=== PATIENT | male | born 1945 | race Caucasian/White ===

== ENCOUNTER 2017-01-18 09:40 | Inpatient (IN) | payer MEDICARE, BC ==
[~2017-01-18] VITALS: Ht 182.9 cm; Wt 77.0 kg
[2017-01-18] VITALS (9 sets, daily range): BP systolic 116–157; BP diastolic 54–76; PULSE 62–84; RESP 16; TEMP 97.5–97.7; O2SAT 96–99
[~2017-01-18 09:40] MED LIST: ALL220TA; HYDR-3533 PO; SILV1CRE80 TOP; VICOTAB4
[2017-01-18] MEDS ORDERED: ATOR20TA15 PO (10:12)
[2017-01-18] MEDS ORDERED: FINA5TAB2 PO (10:12)
[2017-01-18] MEDS ORDERED: [UNRECOGNIZED DRUG - CODE] T-DERMAL (10:12)
[2017-01-18] MEDS ORDERED: PANT40TA3 PO (10:12)
[2017-01-18] MEDS ORDERED: LISI10TA3 PO (10:12)
--- NOTE | 2017-01-18 10:40 | PD ---
HPI Chief Complaint: Pain: Acute or Chronic Time Seen by Provider: 10:05 Travel History International Travel<30 days: No Contact w/Intl Traveler<30days: No Traveled to known affect area: No History of Present Illness HPI 71yo M with PMH of right renal cell carcinoma s/p right nephrectomy 3 weeks ago at [facility] in [place] here with c/o lower back pain that was worst yesterday. Pain is sharp, worst with movement and radiating across left and right lower back. Pt also with bilateral lower extremity numbness more on bilateral lateral aspect of thighs and up to above both knees. Said he has had numbness before but never constant like the last 3-4 days. Denies any trauma, fever, IVDA, focal weakness, chest pain, sob, n/v, abdominal pain. Took oxycodone with no relieve. PFSH Past Medical History Cancer: Yes (KIDNEY) High Cholesterol: Yes Chemotherapy: No Diabetes: No (PRE-DIABETIC) Diminished Hearing: No GERD: Yes Hypertension: Yes Immunizations Current: Yes Radiation Therapy: No Tetanus Vaccination: < 5 Years Past Surgical History Abdominal Surgery: Yes (RIGHT KIDNEY REMOVED-CA) Social History Alcohol Use: Yes (OCCASIONALLY) Tobacco Use: No (FORMER) Substance Use: No Allergies-Medications (Allergen,Severity, Reaction): Coded Allergies: No Known Allergies (Verified Allergy, Mild, 01/18/17) Reported Meds & Prescriptions Reported Meds & Active Scripts Active Reported Testosterone 25 Mg/2.5 Gram (1 %) Gel.packet 1 Applic T-DERMAL DAILY Lisinopril 10 Mg Tab 10 Mg PO HS Pantoprazole (Pantoprazole Sodium) 40 Mg Tab 40 Mg PO DAILY Finasteride 5 Mg Tab 5 Mg PO DAILY Do not crush. Atorvastatin (Atorvastatin Calcium) 20 Mg Tab 20 Mg PO HS Review of Systems Except as stated in HPI: all other systems reviewed are Neg Physical Exam Narrative GENERAL: 71yo M in moderate distress. SKIN: Focused skin assessment warm/dry. HEAD: Atraumatic. Normocephalic. EYES: Pupils equal and round at 3mm bilaterally. EOMI. CARDIOVASCULAR: Regular rate and rhythm. No murmur appreciated. RESPIRATORY: No accessory muscle use. Clear to auscultation. Breath sounds equal bilaterally. GASTROINTESTINAL: Abdomen soft, non-tender, nondistended. No rebound tenderness or guarding. BACK: +TTP L5. No mass. No edema or erythema. MUSCULOSKELETAL: No obvious deformities. No clubbing. No cyanosis. No edema. NEUROLOGICAL: Awake and alert. No obvious cranial nerve deficits. Motor grossly within normal limits 06/18. Normal speech. Decreased sensation in bilateral lateral thighs. Normal sensation in bilateral upper extremities. PSYCHIATRIC: Appropriate mood and affect; insight and judgment normal. Data Data Last Documented VS Vital Signs Date Time Temp Pulse Resp B/P (MAP) Pulse Ox O2 Delivery O2 Flow Rate FiO2 01/18/17 13:47 63 16 146/68 (94) 97 Room Air 01/18/17 09:51 97.5 Orders Orders Mri L Spine W&W/O Contrast (01/18/17 ) Complete Blood Count With Diff (01/18/17 10:32) Basic Metabolic Panel (Bmp) (01/18/17 10:32) Urinalysis - C+S If Indicated (01/18/17 10:32) ^ Insert Iv (01/18/17 10:33) Morphine Inj (Morphine Inj) (01/18/17 10:45) Sodium Chlor 0.9% 1000 Ml Inj (Ns 1000 M (01/18/17 11:45) Gadobenate Dimeglimine Pf Inj (Multihanc (01/18/17 12:35) Admit Order (Ed Use Only) (01/18/17 14:29) Consult Neurosurgery (01/18/17 ) Labs Laboratory Tests Test 01/18/17 10:44 01/18/17 11:42 White Blood Count 5.7 TH/MM3 Red Blood Count 4.45 MIL/MM3 Hemoglobin 13.4 GM/DL Hematocrit 39.6 % Mean Corpuscular Volume 89.1 FL Mean Corpuscular Hemoglobin 30.0 PG Mean Corpuscular Hemoglobin Concent 33.7 % Red Cell Distribution Width 11.6 % Platelet Count 235 TH/MM3 Mean Platelet Volume 7.8 FL Neutrophils (%) (Auto) 74.7 % Lymphocytes (%) (Auto) 13.0 % Monocytes (%) (Auto) 8.0 % Eosinophils (%) (Auto) 3.6 % Basophils (%) (Auto) 0.7 % Neutrophils # (Auto) 4.3 TH/MM3 Lymphocytes # (Auto) 0.7 TH/MM3 Monocytes # (Auto) 0.5 TH/MM3 Eosinophils # (Auto) 0.2 TH/MM3 Basophils # (Auto) 0.0 TH/MM3 CBC Comment DIFF FINAL Differential Comment Blood Urea Nitrogen 29 MG/DL Creatinine 1.40 MG/DL Random Glucose 142 MG/DL Calcium Level 9.7 MG/DL Sodium Level 135 MEQ/L Potassium Level 4.3 MEQ/L Chloride Level 101 MEQ/L Carbon Dioxide Level 26.0 MEQ/L Anion Gap 8 MEQ/L Estimat Glomerular Filtration Rate 50 ML/MIN Urine Collection Type CLEAN CATCH Urine Color YELLOW Urine Turbidity CLEAR Urine pH 6.0 Urine Specific [place] 1.016 Urine Protein NEG mg/dL Urine Glucose (UA) NEG mg/dL Urine Ketones NEG mg/dL Urine Occult Blood NEG Urine Nitrite NEG Urine Bilirubin NEG Urine Leukocyte Esterase NEG Microscopic Urinalysis Comment CULT NOT INDICATED MDM Medical Decision Making Medical Screen Exam Complete: Yes Emergency Medical Condition: Yes Differential Diagnosis Metastatic disease vs. radiculopathy vs. nerve compression vs. cord compression Narrative Course 71yo M with lower back pain that's worst since yesterday and bilateral lower extremity numbness for a few days. Labs reviewed, no leukocytosis. BUN/ creatinine mildly elevated at 29/1.40. UA negative. MRI LS showed pathologic appearing compression fracture of L3 with posterior expansion of the vertebral body wall, associated with enhancing epidural soft tissue mass which extends into both neural foramina and severe spinal stenosis. I discussed with neurosurgeon Dr. Ku's PA at 2:25pm and she recommended pt be transferred to [facility] and Dr. Ray will see him there. Discussed with Dr. Ty's TRIMMING PRESS OPERATOR and accepted to his service. Critical Care Narrative Aggregate critical care time was 40 minutes. Time to perform other separately billable procedures was not included in the critical care time. My time did not include minutes spent treating any other patients simultaneously or on activities that did not directly contribute to the patient's treatment. The services I provided to this patient were to treat and/or prevent clinically significant deterioration that could result in: cardiovascular collapse or . I provided critical care services requiring my management, as noted below: Chart data review, documentation time, medication orders and management, vital sign assessments/reviewing monitor data, ordering and reviewing lab tests, ordering and interpreting/reviewing x-rays and diagnostic studies, care of the patient and discussion of the patient with the admitting physicians. Diagnosis Primary Impression: Compression fracture of L3 lumbar vertebra Qualified Codes: S32.030A - Wedge compression fracture of third lumbar vertebra, initial encounter for closed fracture Additional Impression: Epidural mass Admitting Information Admitting Physician Requests: Admit Dilcia Peck DO Jan 18, 2017 10:40
[2017-01-18] MEDS ORDERED: MORPHINE SULFATE 4 MG/ML INJ IV PUSH ONE (10:45)
[2017-01-18 10:57] LABS: AUTOMATED NEUTROPHIL # 4.3 TH/MM3 (1.8-7.7); BASOPHIL % 0.7 % (0.0-2.0); EOSINOPHIL # 0.2 TH/MM3 (0-0.4); EOSINOPHIL % 3.6 % (0.0-4.0); HEMATOCRIT 39.6 % (39.0-51.0); HEMO FLAGS DIFF FINAL; LYMPHOCYTE # 0.7 TH/MM3 (1.0-4.8); MEAN CELL VOLUME 89.1 FL (80.0-100.0); MEAN CORPUSCULAR HGB CONC 33.7 % (32.0-36.0); NEUT % 74.7 % (16.0-70.0); PLATELET COUNT 235 TH/MM3 (150-450); RED BLOOD COUNT 4.45 MIL/MM3 (4.50-5.90); RED CELL DISTRIBUTION WIDTH 11.6 % (11.6-17.2); WHITE BLOOD COUNT 5.7 TH/MM3 (4.0-11.0)
[2017-01-18 10:59] LABS: POTASSIUM 4.3 MEQ/L (3.5-5.1)
[2017-01-18] MEDS ORDERED: SODIUM CHLOR 0.9% 1000 ML INJ 1,000 ML IV ONE (11:45)
[2017-01-18 11:56] LABS: BLOOD, URINE NEG (NEG); GLUCOSE,URINE NEG (NEG); KETONE, URINE NEG (NEG); NITRITE,URINE NEG (NEG)
[2017-01-18 11:59] LABS: METHOD OF COLLECTION CLEAN CATCH; URINE COLOR YELLOW (YELLW/STRAW)
[2017-01-18 12:01] LABS: COMMENT (UR) CULT NOT INDICATED; CULTURE IF INDICATED CULT NOT INDICATED
[2017-01-18] MEDS ORDERED: GADOBENATE DIM PF 529 MG/ML 5 ML VIAL (for RAD MRI) IV ONE (12:35)
--- NOTE | 2017-01-18 13:54 | RADRPT ---
EXAM DATE/TIME: 01/18/2017 12:30 [place] COMPARISON: No previous studies available for comparison. INDICATIONS : Bilateral lower back pain radiating to bilateral thighs. No known injury. CONTRAST: 15 cc Multihance (gadobenate) IV MEDICAL HISTORY : Renal cell carcinoma. Hypertension. SURGICAL HISTORY : Tonsillectomy. Nephrectomy, right. Right shoulder repair. Bilateral knee surgery. Bilateral carpa l tunnel. ENCOUNTER: Initial ACUITY: 4-6 days PAIN SCORE: 8/10 LOCATION: Bilateral low back. TECHNIQUE: Multiplanar multisequence MRI of the lumbar spine was performed with and without contrast. FINDINGS: Mild compression fracture is identified of the L3 vertebral body. Complete loss of normal bone marrow signal intensity is noted. There is diffuse enhancement of the vertebral body with involvement of th e left pedicle. There is expansion of the posterior vertebral body wall into the spinal canal. Signif icant enhancing extraosseous epidural mass is present. There is severe stenosis of the central spinal canal with central crowding and compression of the nerves of the cauda equina. No enhancing or expansile intraosseous lesions are noted. Disc spaces are well-preserved without evidence of herniation. CONCLUSION: 1. Pathologic-appearing compression fracture of L3 with posterior expansion of the vertebral body wal l, associated enhancing epidural soft tissue mass which extends into both neural foramina and severe central spinal stenosis. 2. Considering patient's history of renal cell carcinoma this likely represents metastatic disease. Roscoe Natarajan MD on January 18, 2017 at 13:41 Board Certified Radiologist. This report was verified electronically.
[2017-01-18] MEDS ORDERED: NALOXONE HCL 0.4 MG/ML AMP IV PUSH PRN (14:45)
[2017-01-18] MEDS ORDERED: SODIUM CHLORIDE 0.9% FLUSH 10 ML FLUSH IV FLUSH PRN (14:45)
[2017-01-18] MEDS ORDERED: ACETAMINOPHEN 325 MG TAB PO PRN (15:00)
[2017-01-18] MEDS ORDERED: ONDANSETRON HCL 4 MG/2 ML VIAL IVP PRN (15:00)
[2017-01-18] MEDS ORDERED: BISACODYL 10 MG SUPP RECTAL PRN (15:00)
[2017-01-18] MEDS ORDERED: LACTULOSE SYRUP 20 GM/30 ML CUP PO PRN (15:00)
[2017-01-18] MEDS: D5-1/2 NS + KCL 20 MEQ INJ 1,000 ML IV SCH (15:03)
[2017-01-18] MEDS ORDERED: MAGNESIUM HYDROXIDE SUSP 30 ML CUP PO PRN (21:00)
[2017-01-18] MEDS: SODIUM CHLORIDE 0.9% FLUSH 10 ML FLUSH IV FLUSH SCH (21:00)
[2017-01-18] MEDS ORDERED: ZOLPIDEM TARTRATE 5 MG TAB PO PRN (21:00)
[2017-01-18] MEDS: LISINOPRIL 10 MG TAB PO SCH (21:05)
[2017-01-18] MEDS ORDERED: ACETAMINOPHEN/HYDROcodone 325 MG/10 MG TAB PO PRN (21:45)
[2017-01-19 00:45] VITALS: BP 127/66; PULSE 66; RESP 17; TEMP 97.5; O2SAT 98
[2017-01-19 07:07] LABS: AUTOMATED NEUTROPHIL # 3.6 TH/MM3 (1.8-7.7); BASOPHIL % 0.8 % (0.0-2.0); EOSINOPHIL # 0.3 TH/MM3 (0-0.4); EOSINOPHIL % 5.7 % (0.0-4.0); HEMATOCRIT 36.1 % (39.0-51.0); HEMO FLAGS DIFF FINAL; MEAN CELL VOLUME 89.8 FL (80.0-100.0); MEAN CORPUSCULAR HEMOGLOBIN 31.3 PG (27.0-34.0); MEAN CORPUSCULAR HGB CONC 34.9 % (32.0-36.0); MONO % 10.2 % (0.0-8.0); NEUT % 65.3 % (16.0-70.0); PLATELET COUNT 184 TH/MM3 (150-450); RED BLOOD COUNT 4.02 MIL/MM3 (4.50-5.90); RED CELL DISTRIBUTION WIDTH 12.5 % (11.6-17.2); WHITE BLOOD COUNT 5.5 TH/MM3 (4.0-11.0)
[2017-01-19 07:34] LABS: ALT (GPT) 18 U/L (12-78); ANION GAP 5 MEQ/L (5-15); AST (GOT) 7 U/L (15-37); BICARBONATE 30.7 MEQ/L (21.0-32.0); BLOOD UREA NITROGEN 27 MG/DL (7-18); CHLORIDE 103 MEQ/L (98-107); GLOMERULAR FILTRATION RATE 45 ML/MIN (>89); POTASSIUM 4.6 MEQ/L (3.5-5.1); SODIUM (NA) 139 MEQ/L (136-145)
[2017-01-19 07:36] LABS: ALKALINE PHOSPHATASE 87 U/L (45-117); TOTAL BILIRUBIN ADULT 0.5 MG/DL (0.2-1.0)
[2017-01-19 08:00] VITALS: BP 139/74; PULSE 60; RESP 18; TEMP 96.8; O2SAT 99
--- NOTE | 2017-01-19 09:28 | HHI.HP ---
History of Present Illness Service Medicine Primary Care Physician Tushar Ty, DO Admission Diagnosis Compression fracture L3, epidural soft tissue mass Diagnoses: (1) Epidural mass (2) Compression fracture of L3 lumbar vertebra History of Present Illness 71yo M with PMH of right renal cell carcinoma s/p right nephrectomy 3 weeks ago at [facility] in [place] here with c/o lower back pain that was worst yesterday. Pain is sharp, worst with movement and radiating across left and right lower back. Pain level of up to 7. Only relieved when lying down. Pt also with bilateral lower extremity numbness more on bilateral lateral aspect of thighs and up to above both knees. Said he has had numbness before but never constant like the last 3-4 days. Denies any trauma, fever, IVDA, focal weakness, chest pain, sob, n/v, abdominal pain. Lumbar on spine with pathologic -appearing compression fracture of L3 with posterior expansion of the vertebral body wall, associated enhancing epidural soft tissue mass which extends into both neural foramina and severe central spinal stenosis.Considering patient's history of renal cell carcinoma this likely represents metastatic disease. Review of Systems Respiratory: DENIES: Cough, Sputum production, Shortness of breath Cardiovascular: DENIES: Chest pain, Palpitations, Syncope Gastrointestinal: DENIES: Bloody stools, Constipation, Nausea, Vomiting Musculoskeletal: COMPLAINS OF: Joint pain, Back pain Neurologic: COMPLAINS OF: Localized weakness, Paresthesias Psychiatric: COMPLAINS OF: Anxiety, Depression Past Family Social History Allergies: Coded Allergies: No Known Allergies (Verified Allergy, Mild, 01/18/17) Past Medical History Kidney cancer HLD GERD HTN Past Surgical History RIGHT KIDNEY REMOVED-CA Active Ordered Medications Current Medications Medications (Trade) Dose Ordered Sig/Brianna Route Start Time Stop Time Status Last Admin Potassium Chloride/Dextrose/ Sod Cl 1,000 ml @ 83 mls/hr Q12H3M IV 01/18/17 14:34 01/18/17 15:03 (NS Flush) 2 ml UNSCH PRN IV FLUSH 01/18/17 14:45 (NS Flush) 2 ml BID IV FLUSH 01/18/17 21:00 (Tylenol) 650 mg Q4H PRN PO 01/18/17 15:00 01/18/17 21:12 (Zofran Inj) 4 mg Q6H PRN IVP 01/18/17 15:00 (Ambien) 5 mg HS PRN PO 01/18/17 21:00 (Narcan Inj) 0.4 mg UNSCH PRN IV PUSH 01/18/17 14:45 (Milk Of Magnesia Liq) 30 ml Q12HR PRN PO 01/18/17 21:00 (Senokot) 17.2 mg Q12HR PRN PO 01/18/17 21:00 (Dulcolax Supp) 10 mg DAILY PRN RECTAL 01/18/17 15:00 (Lactulose Liq) 30 ml DAILY PRN PO 01/18/17 15:00 (Proscar) 5 mg DAILY PO 01/19/17 09:00 (Prinivil) 10 mg HS PO 01/18/17 21:00 01/18/17 21:05 (Protonix) 40 mg DAILY PO 01/19/17 09:00 ([place] 10-325 Mg) 1 tab Q4H PRN PO 01/18/17 21:45 Family History 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 Physical Exam Vital Signs Vital Signs Date Time Temp Pulse Resp B/P (MAP) Pulse Ox O2 Delivery O2 Flow Rate FiO2 01/19/17 08:00 96.8 60 18 139/74 (95) 99 01/19/17 00:45 97.5 66 17 127/66 (86) 98 01/18/17 20:35 97.7 67 16 136/69 (91) 96 01/18/17 17:55 73 157/67 (97) 97 21 01/18/17 16:47 69 16 116/59 (78) 97 Room Air 01/18/17 15:47 77 16 133/54 (80) 96 Room Air 01/18/17 14:47 72 16 157/65 (95) 98 Room Air 01/18/17 13:47 63 16 146/68 (94) 97 Room Air 01/18/17 12:40 62 16 136/76 (96) 98 Room Air 01/18/17 11:02 69 16 127/73 (91) 99 Room Air 01/18/17 11:02 16 01/18/17 09:51 97.5 84 16 123/64 (83) 99 Physical Exam GENERAL: Alert and cooperative, anxious SKIN: Warm and dry. Abdominal incision well approximated with no redness noted HEAD: Normocephalic. EYES: No scleral icterus. No injection or drainage. NECK: Supple, trachea midline. No JVD or lymphadenopathy. CARDIOVASCULAR: Regular rate and rhythm without murmurs, gallops, or rubs. RESPIRATORY: Breath sounds equal bilaterally. No accessory muscle use. GASTROINTESTINAL: Abdomen soft, non-tender, nondistended. MUSCULOSKELETAL: No cyanosis, or edema. BACK: tender on palpation without obvious deformity. No CVA tenderness. Laboratory Laboratory Tests Test 01/18/17 10:44 01/18/17 11:42 01/19/17 06:16 White Blood Count 5.7 5.5 Red Blood Count 4.45 4.02 Hemoglobin 13.4 12.6 Hematocrit 39.6 36.1 Mean Corpuscular Volume 89.1 89.8 Mean Corpuscular Hemoglobin 30.0 31.3 Mean Corpuscular Hemoglobin Concent 33.7 34.9 Red Cell Distribution Width 11.6 12.5 Platelet Count 235 184 Mean Platelet Volume 7.8 8.3 Neutrophils (%) (Auto) 74.7 65.3 Lymphocytes (%) (Auto) 13.0 18.0 Monocytes (%) (Auto) 8.0 10.2 Eosinophils (%) (Auto) 3.6 5.7 Basophils (%) (Auto) 0.7 0.8 Neutrophils # (Auto) 4.3 3.6 Lymphocytes # (Auto) 0.7 1.0 Monocytes # (Auto) 0.5 0.6 Eosinophils # (Auto) 0.2 0.3 Basophils # (Auto) 0.0 0.0 CBC Comment DIFF FINAL DIFF FINAL Differential Comment Blood Urea Nitrogen 29 27 Creatinine 1.40 1.53 Random Glucose 142 115 Calcium Level 9.7 9.8 Sodium Level 135 139 Potassium Level 4.3 4.6 Chloride Level 101 103 Carbon Dioxide Level 26.0 30.7 Anion Gap 8 5 Estimat Glomerular Filtration Rate 50 45 Urine Collection Type CLEAN CATCH Urine Color YELLOW Urine Turbidity CLEAR Urine pH 6.0 Urine Specific [place] 1.016 Urine Protein NEG Urine Glucose (UA) NEG Urine Ketones NEG Urine Occult Blood NEG Urine Nitrite NEG Urine Bilirubin NEG Urine Leukocyte Esterase NEG Microscopic Urinalysis Comment CULT NOT INDICATED Total Protein 6.5 Albumin 3.0 Alkaline Phosphatase 87 Aspartate Amino Transf (AST/SGOT) 7 Alanine Aminotransferase (ALT/SGPT) 18 Total Bilirubin 0.5 Result Diagram: 01/19/17 0616 01/19/17 0616 Imaging Last 72 hours Impressions Lumbar Spine MRI 01/18/17 0000 Signed Impressions: Service Date/Time: Wednesday, January 18, 2017 12:30 - CONCLUSION: 1. Pathologic-appearing compression fracture of L3 with posterior expansion of the vertebral body wall, associated enhancing epidural soft tissue mass which extends into both neural foramina and severe central spinal stenosis. 2. Considering patient's history of renal cell carcinoma this likely represents metastatic disease. MD Gregory Tamayo VTE Risk Assessment Caprini VTE Risk Assessment: No/Low Risk (score <= 1) Caprini Risk Assessment Model Point Value = 1 Point Value = 2 Point Value = 3 Point Value = 5 Age 41-60 Minor surgery BMI > 25 kg/m2 Swollen legs Varicose veins or History of unexplained or recurrent spontaneous Oral contraceptives or hormone replacement Sepsis (< 1 month) Serious lung disease, including pneumonia (< 1 month) Abnormal pulmonary function Acute myocardial infarction Congestive heart failure (< 1 month) History of inflammatory bowel disease Medical patient at bed rest Age 61-74 Arthroscopic surgery Major open surgery (> 45 min) Laparoscopic surgery (> 45 min) Malignancy Confined to bed (> 72 hours) Immobilizing plaster cast Central venous access Age >= 75 History of VTE Family history of VTE Factor V Leiden Prothrombin [id number] Lupus anticoagulant Anticardiolipin antibodies Elevated serum homocysteine Heparin-induced thrombocytopenia Other congenital or acquired thrombophilia Stroke (< 1 month) Elective arthroplasty Hip, pelvis, or leg fracture Acute spinal cord injury (< 1 month) Prophylaxis Regimen Total Risk Factor Score Risk Level Prophylaxis Regimen 0-1 Low Early ambulation 2 Moderate Order ONE of the following: *Sequential Compression Device (SCD) *Heparin 5000 units SQ BID 3-4 Higher Order ONE of the following medications: *Heparin 5000 units SQ TID *Enoxaparin/Lovenox 40 mg SQ daily (WT < 150 kg, CrCl > 30 mL/min) *Enoxaparin/Lovenox 30 mg SQ daily (WT < 150 kg, CrCl > 10-29 mL/min) *Enoxaparin/Lovenox 30 mg SQ BID (WT < 150 kg, CrCl > 30 mL/min) AND/OR *Sequential Compression Device (SCD) 5 or more Highest Order ONE of the following medications: *Heparin 5000 units SQ TID (Preferred with Epidurals) *Enoxaparin/Lovenox 40 mg SQ daily (WT < 150 kg, CrCl > 30 mL/min) *Enoxaparin/Lovenox 30 mg SQ daily (WT < 150 kg, CrCl > 10-29 mL/min) *Enoxaparin/Lovenox 30 mg SQ BID (WT < 150 kg, CrCl > 30 mL/min) AND *Sequential Compression Device (SCD) Assessment and Plan Problem List: (1) Compression fracture of L3 lumbar vertebra ICD Codes: S32.030A - Wedge compression fracture of third lumbar vertebra, initial encounter for closed fracture Status: Acute (2) BPH (benign prostatic hyperplasia) ICD Codes: N40.0 - Benign prostatic hyperplasia without lower urinary tract symptoms (3) GERD (gastroesophageal reflux disease) ICD Codes: K21.9 - Gastro-esophageal reflux disease without esophagitis (4) HLD (hyperlipidemia) ICD Codes: E78.5 - Hyperlipidemia, unspecified (5) HTN (hypertension) ICD Codes: I10 - Essential (primary) hypertension (6) Epidural mass ICD Codes: G96.19 - Other disorders of meninges, not elsewhere classified Status: Acute Assessment and Plan 01/19/17 Compression fx: Neurosurgery consulted. CT of lumbar spine: Pathologic- appearing compression fracture of L3 with posterior expansion of the vertebral body wall, associated enhancing epidural soft tissue mass which extends into both neural foramina and severe central spinal stenosis. Considering patient's history of renal cell carcinoma this likely represents metastatic disease. HTN: Continue home medications. Well controlled HLD: statin is on hold GERD: Continue PPI asymptomatic Anxiety: xanax PRN BPH: Continue home medications. Labs in AM. SCD's ordered. I and the CARTOON DESIGNER have both examined this patient and reviewed this note and I agree with these findings and plan of care. Tushar Ty DO Discussed Condition With Nursing Problem Qualifiers (1) Compression fracture of L3 lumbar vertebra: Qualified Codes: S32.030A - Wedge compression fracture of third lumbar vertebra , initial encounter for closed fracture Ines Collado Jan 19, 2017 09:28
--- NOTE | 2017-01-19 10:07 | PD.CONS ---
[facility] Service Neurosurg Consult Requested By Dr Ty team Reason for Consult metastatic tumor with cord compression Primary Care Physician Tushar Ty, DO History of Present Illness This is a 71 year old male with right renal cell carcinoma s/p right nephrectomy 3 weeks ago at [facility] in [place]. he was admitted with severe, intractable lower back pain that became worst yesterday. Pain is sharp , worst with movement and radiating across left and right lower back. Pain level of up to 8-9/10. Only relieved when lying down. Pt also with bilateral lower extremity numbness more on bilateral lateral aspect of thighs and up to above both knees. Said he has had numbness before but never constant like the last 3-4 days. he Denies any trauma, fever,focal weakness, chest pain, sob, n/v, abdominal pain. Lumbar on spine with pathologic-appearing compression fracture of L3 with posterior expansion of the vertebral body wall, associated enhancing epidural soft tissue mass which extends into both neural foramina and severe central spinal stenosis.Considering patient's history of renal cell carcinoma this likely represents metastatic disease. Neurosurgical consultation was requested Physical Exam Physical Exam Vital Signs Vital Signs Date Time Temp Pulse Resp B/P (MAP) Pulse Ox O2 Delivery O2 Flow Rate FiO2 01/19/17 08:00 96.8 60 18 139/74 (95) 99 01/19/17 00:45 97.5 66 17 127/66 (86) 98 01/18/17 20:35 97.7 67 16 136/69 (91) 96 01/18/17 17:55 73 157/67 (97) 97 21 01/18/17 16:47 69 16 116/59 (78) 97 Room Air 01/18/17 15:47 77 16 133/54 (80) 96 Room Air 01/18/17 14:47 72 16 157/65 (95) 98 Room Air 01/18/17 13:47 63 16 146/68 (94) 97 Room Air 01/18/17 12:40 62 16 136/76 (96) 98 Room Air 01/18/17 11:02 69 16 127/73 (91) 99 Room Air 01/18/17 11:02 16 01/18/17 09:51 97.5 84 16 123/64 (83) 99 Physical Exam GENERAL: Alert and cooperative, anxious SKIN: Warm and dry. Abdominal incision well approximated with no redness noted HEAD: Normocephalic. EYES: No scleral icterus. No injection or drainage. NECK: Supple, trachea midline. No JVD or lymphadenopathy. CARDIOVASCULAR: Regular rate and rhythm without murmurs, gallops, or rubs. RESPIRATORY: Breath sounds equal bilaterally. No accessory muscle use. GASTROINTESTINAL: Abdomen soft, non-tender, nondistended. MUSCULOSKELETAL: No cyanosis, or edema. BACK: tender on palpation without obvious deformity. No CVA tenderness. Laboratory Laboratory Tests Test 01/18/17 10:44 01/18/17 11:42 01/19/17 06:16 White Blood Count 5.7 5.5 Red Blood Count 4.45 4.02 Hemoglobin 13.4 12.6 Hematocrit 39.6 36.1 Mean Corpuscular Volume 89.1 89.8 Mean Corpuscular Hemoglobin 30.0 31.3 Mean Corpuscular Hemoglobin Concent 33.7 34.9 Red Cell Distribution Width 11.6 12.5 Platelet Count 235 184 Mean Platelet Volume 7.8 8.3 Neutrophils (%) (Auto) 74.7 65.3 Lymphocytes (%) (Auto) 13.0 18.0 Monocytes (%) (Auto) 8.0 10.2 Eosinophils (%) (Auto) 3.6 5.7 Basophils (%) (Auto) 0.7 0.8 Neutrophils # (Auto) 4.3 3.6 Lymphocytes # (Auto) 0.7 1.0 Monocytes # (Auto) 0.5 0.6 Eosinophils # (Auto) 0.2 0.3 Basophils # (Auto) 0.0 0.0 CBC Comment DIFF FINAL DIFF FINAL Differential Comment Blood Urea Nitrogen 29 27 Creatinine 1.40 1.53 Random Glucose 142 115 Calcium Level 9.7 9.8 Sodium Level 135 139 Potassium Level 4.3 4.6 Chloride Level 101 103 Carbon Dioxide Level 26.0 30.7 Anion Gap 8 5 Estimat Glomerular Filtration Rate 50 45 Urine Collection Type CLEAN CATCH Urine Color YELLOW Urine Turbidity CLEAR Urine pH 6.0 Urine Specific [place] 1.016 Urine Protein NEG Urine Glucose (UA) NEG Urine Ketones NEG Urine Occult Blood NEG Urine Nitrite NEG Urine Bilirubin NEG Urine Leukocyte Esterase NEG Microscopic Urinalysis Comment CULT NOT INDICATED Total Protein 6.5 Albumin 3.0 Alkaline Phosphatase 87 Aspartate Amino Transf (AST/SGOT) 7 Alanine Aminotransferase (ALT/SGPT) 18 Total Bilirubin 0.5 Result Diagram: 01/19/1761501/19/1716 Review of Systems Constitutional: DENIES: Diaphoretic episodes, Fatigue, Fever, Weight gain, Weight loss, Chills, Dizziness, Change in appetite, Night Sweats Endocrine: DENIES: Heat/cold intolerance, Polydipsia, Polyuria, Polyphagia Eyes: DENIES: Blurred vision, Diplopia, Eye inflammation, Eye pain, Vision loss , Photosensitivity, Double Vision Ears, nose, mouth, throat: DENIES: Tinnitus, Hearing loss, Vertigo, Nasal discharge, Oral lesions, Throat pain, Hoarseness, Ear Pain, Running Nose, Epistaxis, Sinus Pain, Toothache, Odynophagia Cardiovascular: DENIES: Chest pain, Palpitations, Syncope, Dyspnea on Exertion , PND, Lower Extremity Edema, Orthopnea, Claudication Gastrointestinal: DENIES: Abdominal pain, Black stools, Bloody stools, Constipation, Diarrhea, Nausea, Vomiting, Difficulty Swallowing, Anorexia Genitourinary: DENIES: Sexual dysfunction, Urinary frequency, Urinary incontinence, Urgency, Hematuria, Dysuria, Nocturia, Penile Discharge, Testicular Pain, Testicular Swelling Musculoskeletal: COMPLAINS OF: Joint pain, Back pain, DENIES: Muscle aches, Stiffness, Joint Swelling, Neck pain Integumentary: DENIES: Abnormal pigmentation, Nail changes, Pruritus, Rash Hematologic/lymphatic: DENIES: Bruising, Lymphadenopathy Immunologic/allergic: DENIES: Eczema, Urticaria Neurologic: DENIES: Abnormal gait, Headache, Localized weakness, Paresthesias, Seizures, Speech Problems, Tremor, Poor Balance Psychiatric: DENIES: Anxiety, Confusion, Mood changes, Depression, Hallucinations, Agitation, Suicidal Ideation, Homicidal Ideation, Delusions Past Family Social History Allergies: Coded Allergies: No Known Allergies (Verified Allergy, Mild, 01/18/17) Past Medical History Kidney cancer HLD GERD HTN Past Surgical History Right nephrectomy Active Ordered Medications Current Medications Morphine Sulfate (Morphine Inj) 4 mg ONCE ONCE IV PUSH Last administered on t 10:57; Start 01/18/17 at 10:45; Stop 01/18/17 at 10:46; Status DC Sodium Chloride 1,000 ml @ 999 mls/hr BOLUS ONCE IV Last administered on 01/18 11:49; Start 01/18/17 at 11:45; Stop 01/18/17 at 12:54; Status DC Gadobenate Dimeglumine (Multihance Pf Inj) 15 ml STK-MED ONCE IV Last administered on 01/18/17 12:35; Start 01/18/17 at 12:35; Stop 01/18/17 at 12:36 ; Status DC Potassium Chloride/Dextrose/ Sod Cl 1,000 ml @ 83 mls/hr Q12H3M IV Last administered on 01/18/17 15:03; Start 01/18/17 at 14:34 Sodium Chloride (NS Flush) 2 ml UNSCH PRN IV FLUSH FLUSH AFTER USING IV ACCESS ; Start 01/18/17 at 14:45 Sodium Chloride (NS Flush) 2 ml BID IV FLUSH Last administered on 01/19/17 10: 13; Start 01/18/17 at 21:00 Acetaminophen (Tylenol) 650 mg Q4H PRN PO TEMP > 100.4 Last administered on 21:12; Start 01/18/17 at 15:00 Ondansetron HCl (Zofran Inj) 4 mg Q6H PRN IVP NAUSEA OR VOMITING; Start at 15:00 Zolpidem Tartrate (Ambien) 5 mg HS PRN PO INSOMNIA; Start 01/18/17 at 21:00 Naloxone HCl (Narcan Inj) 0.4 mg UNSCH PRN IV PUSH SEE LABEL COMMENTS; Start 01/18/17 at 14:45 Magnesium Hydroxide (Milk Of Magnesia Liq) 30 ml Q12HR PRN PO Mild constipation ; Start 01/18/17 at 21:00 Sennosides (Senokot) 17.2 mg Q12HR PRN PO Moderate constipation; Start at 21:00 Bisacodyl (Dulcolax Supp) 10 mg DAILY PRN RECTAL SEVERE CONSITIPATION; Start 01/18/17 at 15:00 Lactulose (Lactulose Liq) 30 ml DAILY PRN PO SEVERE CONSITIPATION; Start at 15:00 Finasteride (Proscar) 5 mg DAILY PO Last administered on 01/19/17 10:14; Start 01/19/17 at 09:00 Lisinopril (Prinivil) 10 mg HS PO Last administered on 01/18/17 21:05; Start 01/18/17 at 21:00 Pantoprazole Sodium (Protonix) 40 mg DAILY PO Last administered on 01/19/17 10 :14; Start 01/19/17 at 09:00 Acetaminophen/ Hydrocodone Bitart ([place] 10-325 Mg) 1 tab Q4H PRN PO PAIN SCALE 5 TO 10; Start 01/18/17 at 21:45 Alprazolam (Xanax) 0.25 mg Q8H PRN PO ANXIETY; Start 01/19/17 at 09:30 Family History His family hiostory was reviewed. 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 Physical Exam Vital Signs Vital Signs Date Time Temp Pulse Resp B/P (MAP) Pulse Ox O2 Delivery O2 Flow Rate FiO2 01/19/17 08:00 96.8 60 18 139/74 (95) 99 01/19/17 00:45 97.5 66 17 127/66 (86) 98 01/18/17 20:35 97.7 67 16 136/69 (91) 96 01/18/17 17:55 73 157/67 (97) 97 21 01/18/17 16:47 69 16 116/59 (78) 97 Room Air 01/18/17 15:47 77 16 133/54 (80) 96 Room Air 01/18/17 14:47 72 16 157/65 (95) 98 Room Air 01/18/17 13:47 63 16 146/68 (94) 97 Room Air 01/18/17 12:40 62 16 136/76 (96) 98 Room Air 01/18/17 11:02 69 16 127/73 (91) 99 Room Air 01/18/17 11:02 16 Physical Exam The patient is alert, awake and oriented to time, place and person. Speech is fluent. Higher cognitive functions are normal. Cranial nerve examination demonstrates the pupils to be equal, round, and reactive to light. Extra-ocular movements are intact. Facial motor and sensory function are normal and symmetrical. Gross hearing is intact, bilaterally. The uvula is midline and elevates symmetrically with the soft palate. Sternocleidomastoid and trapezius muscles have normal and symmetrical strength. Other cranial nerves are intact. Neck is soft and supple. Cervical spine has a full range of motion in anterior flexion, extension, lateral bending, and rotation without pain. There is no tenderness to palpation to the spinous processes or paraspinal muscles. Muscle testing reveals normal bulk and tone overall without rigidity, spasticity , fasciculations, or atrophy. Muscle strength is 5/5 in all muscle groups of both upper extremities including deltoid, biceps, triceps, brachioradialis, wrist extension and ice cream van vendor. In the lower extremities, strength is 4/5 in both iliopsoas, quadriceps, hamstrings, plantar flexion, dorsiflexion, and extensor hallicus longus. Sensory examination is intact to light touch and sharp/dull discrimination in both the upper and decreased in his lower extremities Deep tendon reflexes are 2+ and symmetrical in the biceps, triceps, and brachioradialis, bilaterally, in the upper extremities. In the lower extremities , the patellar and Achilles are 1+, bilaterally. There is a bilateral plantar flexion response. Hoffmanns sign is negative. There is no clonus or other abnormal reflexes noted. Cerebellar examination is intact to [id number] test, rapid rhythmic alternating motion. There is no dysmetria, dysdiadochokinesia, truncal ataxia, or tremor. Laboratory Laboratory Tests Test 01/18/17 10:44 01/18/17 11:42 01/19/17 06:16 White Blood Count 5.7 5.5 Red Blood Count 4.45 4.02 Hemoglobin 13.4 12.6 Hematocrit 39.6 36.1 Mean Corpuscular Volume 89.1 89.8 Mean Corpuscular Hemoglobin 30.0 31.3 Mean Corpuscular Hemoglobin Concent 33.7 34.9 Red Cell Distribution Width 11.6 12.5 Platelet Count 235 184 Mean Platelet Volume 7.8 8.3 Neutrophils (%) (Auto) 74.7 65.3 Lymphocytes (%) (Auto) 13.0 18.0 Monocytes (%) (Auto) 8.0 10.2 Eosinophils (%) (Auto) 3.6 5.7 Basophils (%) (Auto) 0.7 0.8 Neutrophils # (Auto) 4.3 3.6 Lymphocytes # (Auto) 0.7 1.0 Monocytes # (Auto) 0.5 0.6 Eosinophils # (Auto) 0.2 0.3 Basophils # (Auto) 0.0 0.0 CBC Comment DIFF FINAL DIFF FINAL Differential Comment Blood Urea Nitrogen 29 27 Creatinine 1.40 1.53 Random Glucose 142 115 Calcium Level 9.7 9.8 Sodium Level 135 139 Potassium Level 4.3 4.6 Chloride Level 101 103 Carbon Dioxide Level 26.0 30.7 Anion Gap 8 5 Estimat Glomerular Filtration Rate 50 45 Urine Collection Type CLEAN CATCH Urine Color YELLOW Urine Turbidity CLEAR Urine pH 6.0 Urine Specific [place] 1.016 Urine Protein NEG Urine Glucose (UA) NEG Urine Ketones NEG Urine Occult Blood NEG Urine Nitrite NEG Urine Bilirubin NEG Urine Leukocyte Esterase NEG Microscopic Urinalysis Comment CULT NOT INDICATED Total Protein 6.5 Albumin 3.0 Alkaline Phosphatase 87 Aspartate Amino Transf (AST/SGOT) 7 Alanine Aminotransferase (ALT/SGPT) 18 Total Bilirubin 0.5 Result Diagram: 01/19/17 0616 01/19/17 0616 Imaging Last 72 hours Impressions Lumbar Spine MRI 01/18/17 0000 Signed Impressions: Service Date/Time: Wednesday, January 18, 2017 12:30 - CONCLUSION: 1. Pathologic-appearing compression fracture of L3 with posterior expansion of the vertebral body wall, associated enhancing epidural soft tissue mass which extends into both neural foramina and severe central spinal stenosis. 2. Considering patient's history of renal cell carcinoma this likely represents metastatic disease. Roscoe Natarajan MD Assessment and Plan Assessment and Plan Caprini VTE Risk Assessment Caprini VTE Risk Assessment Caprini VTE Risk Assessment: Mod/High Risk (score >= 2) VTE Pharm Contraindication: Hemorrhage Caprini Risk Assessment Model Point Value = 1 Point Value = 2 Point Value = 3 Point Value = 5 Age 41-60 Minor surgery BMI > 25 kg/m2 Swollen legs Varicose veins or History of unexplained or recurrent spontaneous Oral contraceptives or hormone replacement Sepsis (< 1 month) Serious lung disease, including pneumonia (< 1 month) Abnormal pulmonary function Acute myocardial infarction Congestive heart failure (< 1 month) History of inflammatory bowel disease Medical patient at bed rest Age 61-74 Arthroscopic surgery Major open surgery (> 45 min) Laparoscopic surgery (> 45 min) Malignancy Confined to bed (> 72 hours) Immobilizing plaster cast Central venous access Age >= 75 History of VTE Family history of VTE Factor V Leiden Prothrombin [id number] Lupus anticoagulant Anticardiolipin antibodies Elevated serum homocysteine Heparin-induced thrombocytopenia Other congenital or acquired thrombophilia Stroke (< 1 month) Elective arthroplasty Hip, pelvis, or leg fracture Acute spinal cord injury (< 1 month) Prophylaxis Regimen Total Risk Factor Score Risk Level Prophylaxis Regimen 0-1 Low Early ambulation 2 Moderate Order ONE of the following: *Sequential Compression Device (SCD) *Heparin 5000 units SQ BID 3-4 Higher Order ONE of the following medications: *Heparin 5000 units SQ TID *Enoxaparin/Lovenox 40 mg SQ daily (WT < 150 kg, CrCl > 30 mL/min) *Enoxaparin/Lovenox 30 mg SQ daily (WT < 150 kg, CrCl > 10-29 mL/min) *Enoxaparin/Lovenox 30 mg SQ BID (WT < 150 kg, CrCl > 30 mL/min) AND/OR *Sequential Compression Device (SCD) 5 or more Highest Order ONE of the following medications: *Heparin 5000 units SQ TID (Preferred with Epidurals) *Enoxaparin/Lovenox 40 mg SQ daily (WT < 150 kg, CrCl > 30 mL/min) *Enoxaparin/Lovenox 30 mg SQ daily (WT < 150 kg, CrCl > 10-29 mL/min) *Enoxaparin/Lovenox 30 mg SQ BID (WT < 150 kg, CrCl > 30 mL/min) AND *Sequential Compression Device (SCD) Attending Statement Problem List: (1) Compression fracture of L3 lumbar vertebra ICD Codes: S32.030A - Wedge compression fracture of third lumbar vertebra, initial encounter for closed fracture Status: Acute (2) BPH (benign prostatic hyperplasia) ICD Codes: N40.0 - Benign prostatic hyperplasia without lower urinary tract symptoms (3) GERD (gastroesophageal reflux disease) ICD Codes: K21.9 - Gastro-esophageal reflux disease without esophagitis (4) HLD (hyperlipidemia) ICD Codes: E78.5 - Hyperlipidemia, unspecified (5) HTN (hypertension) ICD Codes: I10 - Essential (primary) hypertension (6) Epidural mass ICD Codes: G96.19 - Other disorders of meninges, not elsewhere classified Status: Acute Neuro. neuro checks in a serial fashion. Metastatic renal cell carcinoma with epidural extension and severe [id number]/spinal cord compression. recommend MRI brain, C and T spine, or consider PET scan Likely secondary to renal cancer. Consult oncology. He will need a surgical decompression. These are very vascular lesions, I recommend preoperative angiography with endovascular embolization\\ Consult radiation oncology for postoperative radiation Respiratory. aggressive pulmonary toilette, nasotracheal suction, and breathing treatments with nebulizers. Nutrition. Oral diet Renal. monitor closely urine output, BUN and creatinine Diabetes mellitus. Monitor serial Acu checks and SSI as needed in detail ID monitor for signs of infection Protonix for stress ulcer prophylaxis Monroe Ray MD Jan 19, 2017 10:06
[2017-01-19] MEDS: SODIUM CHLORIDE 0.9% FLUSH 10 ML FLUSH IV FLUSH SCH ×2 (10:13→20:25)
[2017-01-19] MEDS: PANTOPRAZOLE SOD 40 MG DELAYED RELEASE TAB PO SCH (10:14)
[2017-01-19] MEDS: FINASTERIDE 5 MG TAB PO SCH (10:14)
[2017-01-19 11:53] VITALS: BP 139/77; PULSE 72; RESP 19; TEMP 97.2; O2SAT 99
[2017-01-19 16:00] VITALS: BP 139/80; PULSE 82; RESP 18; TEMP 96.8; O2SAT 99
[2017-01-19 19:33] VITALS: BP 145/79; PULSE 79; RESP 17; TEMP 98.3; O2SAT 98
[2017-01-19 19:41] LABS: APTT (PATIENT) 26.3 SEC (24.3-30.1); INTERNATIONAL NORMALIZED RATIO 1.1 RATIO; PROTHROMBIN TIME - PATIENT 10.9 SEC (9.8-11.6)
[2017-01-19] MEDS: D5-1/2 NS + KCL 20 MEQ INJ 1,000 ML IV SCH (19:47)
[2017-01-19] MEDS: LISINOPRIL 10 MG TAB PO SCH (20:25)
[2017-01-20] VITALS (8 sets, daily range): BP systolic 122–154; BP diastolic 67–82; PULSE 54–79; RESP 16–18; TEMP 96.8–97.7; O2SAT 97–99
[2017-01-20] MEDS: ALPRAZolam 0.25 MG TAB PO PRN ×2 (07:57→20:57)
[2017-01-20 08:22] LABS: AUTOMATED NEUTROPHIL # 3.6 TH/MM3 (1.8-7.7); BASOPHIL % 0.8 % (0.0-2.0); EOSINOPHIL # 0.2 TH/MM3 (0-0.4); EOSINOPHIL % 4.7 % (0.0-4.0); HEMATOCRIT 39.8 % (39.0-51.0); HEMO FLAGS DIFF FINAL; LYMPH % 16.8 % (9.0-44.0); LYMPHOCYTE # 0.9 TH/MM3 (1.0-4.8); MEAN CELL VOLUME 90.2 FL (80.0-100.0); MEAN CORPUSCULAR HEMOGLOBIN 30.8 PG (27.0-34.0); MEAN CORPUSCULAR HGB CONC 34.2 % (32.0-36.0); MONO % 9.5 % (0.0-8.0); NEUT % 68.2 % (16.0-70.0); PLATELET COUNT 221 TH/MM3 (150-450); RED BLOOD COUNT 4.41 MIL/MM3 (4.50-5.90); RED CELL DISTRIBUTION WIDTH 12.3 % (11.6-17.2); WHITE BLOOD COUNT 5.2 TH/MM3 (4.0-11.0)
[2017-01-20 08:51] LABS: BICARBONATE 32.8 MEQ/L (21.0-32.0); POTASSIUM 4.7 MEQ/L (3.5-5.1)
[2017-01-20] MEDS: PANTOPRAZOLE SOD 40 MG DELAYED RELEASE TAB PO SCH (09:00)
--- NOTE | 2017-01-20 10:00 | HHI.NSPN ---
(Zara Edmondson) Note Status Status: Progress Note (Zara Edmondson) Interval History Interval History This is a 71 year old male with right renal cell carcinoma s/p right nephrectomy 3 weeks ago at [facility] in [place]. he was admitted with severe, intractable lower back pain that became worst yesterday. Pain is sharp , worst with movement and radiating across left and right lower back. Pain level of up to 8-9/10. Only relieved when lying down. Pt also with bilateral lower extremity numbness more on bilateral lateral aspect of thighs and up to above both knees. Said he has had numbness before but never constant like the last 3-4 days. He Denies any trauma, fever,focal weakness, chest pain, sob, n/v , abdominal pain. Lumbar on spine with pathologic-appearing compression fracture of L3 with posterior expansion of the vertebral body wall, associated enhancing epidural soft tissue mass which extends into both neural foramina and severe central spinal stenosis.Considering patient's history of renal cell carcinoma this likely represents metastatic disease. Neurosurgical consultation was requested 01/20: awaiting angiography with embolization of L3 tumor. to OR tomorrow. no new complaints (Zara Edmondson) Labs, Micro, & Vital Signs Results Date Time Temp Pulse Resp B/P (MAP) Pulse Ox O2 Delivery O2 Flow Rate FiO2 01/20/17 08:00 97.2 69 18 144/82 (102) 98 01/20/17 04:45 97.0 68 16 122/69 (86) 97 01/20/17 00:30 96.9 74 17 138/67 (90) 99 01/19/17 19:33 98.3 79 17 145/79 (101) 98 01/19/17 16:00 96.8 82 18 139/80 (99) 99 01/19/17 11:53 97.2 72 19 139/77 (97) 99 Constitutional Vital Signs Date Time Temp Pulse Resp B/P (MAP) Pulse Ox O2 Delivery O2 Flow Rate FiO2 01/20/17 08:00 97.2 69 18 144/82 (102) 98 01/20/17 04:45 97.0 68 16 122/69 (86) 97 01/20/17 00:30 96.9 74 17 138/67 (90) 99 01/19/17 19:33 98.3 79 17 145/79 (101) 98 01/19/17 16:00 96.8 82 18 139/80 (99) 99 01/19/17 11:53 97.2 72 19 139/77 (97) 99 (Zara Edmondson) Review of Systems Constitutional: DENIES: Fever, Chills Cardiovascular: DENIES: Chest pain Genitourinary: DENIES: Urinary incontinence Neurologic: COMPLAINS OF: Localized weakness, Paresthesias, DENIES: Speech Problems Psychiatric: DENIES: Hallucinations (Zara Edmondson) Physical Exam Mr. Da Silva is alert, awake and oriented to time, place and person. Speech is fluent. Cranial nerve examination demonstrates the pupils to be equal, round, and reactive to light. Extra-ocular movements are intact. Facial motor and sensory function are normal and symmetrical. Neck is soft and supple. Muscle testing reveals normal bulk and tone overall without rigidity, spasticity , fasciculations, or atrophy. Muscle strength is 5/5 in all muscle groups of both upper extremities including deltoid, biceps, triceps, brachioradialis, wrist extension and cutting and boning supervisor. In the lower extremities, strength is 4/5 in both iliopsoas, quadriceps, hamstrings, plantar flexion, dorsiflexion, and extensor hallicus longus. Sensory examination is intact to light touch n both the upper and decreased in his lower extremities Deep tendon reflexes are 2+ and symmetrical in the biceps, triceps, and brachioradialis, bilaterally, in the upper extremities. In the lower extremities , the patellar and Achilles are 1+, bilaterally. There is a bilateral plantar flexion response. Justin sign is negative. There is no clonus Cerebellar examination is intact to [id number] test (Zara Edmondson) Mr. Da Silva is alert, awake and oriented to time, place and person. Speech is fluent. Cranial nerve examination demonstrates the pupils to be equal, round, and reactive to light. Extra-ocular movements are intact. Facial motor and sensory function are normal and symmetrical. Neck is soft and supple. Muscle testing reveals normal bulk and tone overall without rigidity, spasticity , fasciculations, or atrophy. Muscle strength is 5/5 in all muscle groups of both upper extremities including deltoid, biceps, triceps, brachioradialis, wrist extension and cutting and boning supervisor. In the lower extremities, strength is 4/5 in both iliopsoas, quadriceps, hamstrings, plantar flexion, dorsiflexion, and extensor hallicus longus. Sensory examination is intact to light touch n both the upper and decreased in his lower extremities Deep tendon reflexes are 2+ and symmetrical in the biceps, triceps, and brachioradialis, bilaterally, in the upper extremities. In the lower extremities , the patellar and Achilles are 1+, bilaterally. There is a bilateral plantar flexion response. Justin sign is negative. There is no clonus Cerebellar examination is intact (Monroe Ray MD) Medications Current Medications Current Medications Medications (Trade) Dose Ordered Sig/Brianna Route PRN Reason Start Time Stop Time Status Last Admin Dose Admin Potassium Chloride/Dextrose/ Sod Cl 1,000 ml @ 83 mls/hr Q12H3M IV 01/18/17 14:34 01/18/17 15:03 Sodium Chloride (NS Flush) 2 ml UNSCH PRN IV FLUSH FLUSH AFTER USING IV ACCESS 01/18/17 14:45 Sodium Chloride (NS Flush) 2 ml BID IV FLUSH 01/18/17 21:00 01/19/17 20:25 Acetaminophen (Tylenol) 650 mg Q4H PRN PO TEMP > 100.4 01/18/17 15:00 01/18/17 21:12 Ondansetron HCl (Zofran Inj) 4 mg Q6H PRN IVP NAUSEA OR VOMITING 01/18/17 15:00 Zolpidem Tartrate (Ambien) 5 mg HS PRN PO INSOMNIA 01/18/17 21:00 Naloxone HCl (Narcan Inj) 0.4 mg UNSCH PRN IV PUSH SEE LABEL COMMENTS 01/18/17 14:45 Magnesium Hydroxide (Milk Of Magnesia Liq) 30 ml Q12HR PRN PO Mild constipation 01/18/17 21:00 Sennosides (Senokot) 17.2 mg Q12HR PRN PO Moderate constipation 01/18/17 21:00 Bisacodyl (Dulcolax Supp) 10 mg DAILY PRN RECTAL SEVERE CONSITIPATION 01/18/17 15:00 Lactulose (Lactulose Liq) 30 ml DAILY PRN PO SEVERE CONSITIPATION 01/18/17 15:00 Finasteride (Proscar) 5 mg DAILY PO 01/19/17 09:00 01/19/17 10:14 Lisinopril (Prinivil) 10 mg HS PO 01/18/17 21:00 01/19/17 20:25 Pantoprazole Sodium (Protonix) 40 mg DAILY PO 01/19/17 09:00 01/19/17 10:14 Acetaminophen/ Hydrocodone Bitart ([place] 10-325 Mg) 1 tab Q4H PRN PO PAIN SCALE 5 TO 10 01/18/17 21:45 Alprazolam (Xanax) 0.25 mg Q8H PRN PO ANXIETY 01/19/17 09:30 01/20/17 07:57 Vancomycin HCl 1000 mg/Sodium Chloride 250 ml @ 250 mls/hr ONCE ONCE IV 01/21/17 06:00 01/21/17 06:59 UNV Chlorhexidine Gluconate (Hibiclens 4% Top Soln) 1 applic HS TOP 01/20/17 21:00 01/22/17 21:01 UNV (Zara Edmondson) Current Medications Current Medications Morphine Sulfate (Morphine Inj) 4 mg ONCE ONCE IV PUSH Last administered on 10:57; Start 01/18/17 at 10:45; Stop 01/18/17 at 10:46; Status DC Sodium Chloride 1,000 ml @ 999 mls/hr BOLUS ONCE IV Last administered on 01/18 11:49; Start 01/18/17 at 11:45; Stop 01/18/17 at 12:54; Status DC Gadobenate Dimeglumine (Multihance Pf Inj) 15 ml STK-MED ONCE IV Last administered on 01/18/17 12:35; Start 01/18/17 at 12:35; Stop 01/18/17 at 12:36 ; Status DC Potassium Chloride/Dextrose/ Sod Cl 1,000 ml @ 83 mls/hr Q12H3M IV Last administered on 01/18/17 15:03; Start 01/18/17 at 14:34 Sodium Chloride (NS Flush) 2 ml UNSCH PRN IV FLUSH FLUSH AFTER USING IV ACCESS ; Start 01/18/17 at 14:45 Sodium Chloride (NS Flush) 2 ml BID IV FLUSH Last administered on 01/20/17 20: 55; Start 01/18/17 at 21:00 Acetaminophen (Tylenol) 650 mg Q4H PRN PO TEMP > 100.4 Last administered on 21:12; Start 01/18/17 at 15:00 Ondansetron HCl (Zofran Inj) 4 mg Q6H PRN IVP NAUSEA OR VOMITING; Start at 15:00 Zolpidem Tartrate (Ambien) 5 mg HS PRN PO INSOMNIA; Start 01/18/17 at 21:00 Naloxone HCl (Narcan Inj) 0.4 mg UNSCH PRN IV PUSH SEE LABEL COMMENTS; Start 01/18/17 at 14:45 Magnesium Hydroxide (Milk Of Magnesia Liq) 30 ml Q12HR PRN PO Mild constipation ; Start 01/18/17 at 21:00 Sennosides (Senokot) 17.2 mg Q12HR PRN PO Moderate constipation; Start at 21:00 Bisacodyl (Dulcolax Supp) 10 mg DAILY PRN RECTAL SEVERE CONSITIPATION; Start 01/18/17 at 15:00 Lactulose (Lactulose Liq) 30 ml DAILY PRN PO SEVERE CONSITIPATION; Start at 15:00 Finasteride (Proscar) 5 mg DAILY PO Last administered on 01/20/17 16:33; Start 01/19/17 at 09:00 Lisinopril (Prinivil) 10 mg HS PO Last administered on 01/20/17 20:55; Start 01/18/17 at 21:00 Pantoprazole Sodium (Protonix) 40 mg DAILY PO Last administered on 01/19/17 10 :14; Start 01/19/17 at 09:00 Acetaminophen/ Hydrocodone Bitart ([place] 10-325 Mg) 1 tab Q4H PRN PO PAIN SCALE 5 TO 10; Start 01/18/17 at 21:45; Stop 01/21/17 at 12:25; Status DC Alprazolam (Xanax) 0.25 mg Q8H PRN PO ANXIETY Last administered on 01/20/17 20 :57; Start 01/19/17 at 09:30 Vancomycin HCl 1000 mg/Sodium Chloride 250 ml @ 250 mls/hr ONCE ONCE IV ; Start 01/21/17 at 06:00; Stop 01/21/17 at 06:59; Status DC Chlorhexidine Gluconate (Hibiclens 4% Top Soln) 1 applic HS TOP ; Start at 21:00; Stop 01/22/17 at 21:01 Midazolam HCl (Versed Inj) 5 mg STK-MED ONCE .ROUTE Last administered on 13:04; Start 01/20/17 at 13:04; Stop 01/20/17 at 13:05; Status DC Fentanyl Citrate (fentaNYL INJ) 100 mcg STK-MED ONCE .ROUTE Last administered on 01/20/17 13:04; Start 01/20/17 at 13:04; Stop 01/20/17 at 13:05; Status DC Fentanyl Citrate (fentaNYL INJ) 100 mcg STK-MED ONCE .ROUTE Last administered on 01/20/17 13:32; Start 01/20/17 at 13:32; Stop 01/20/17 at 13:33; Status DC Hydromorphone HCl (Dilaudid Pf Inj) 1 mg Q30M PRN IV PAIN GREATER THAN 5 Last administered on 01/20/17 16:35; Start 01/20/17 at 15:15; Stop 01/20/17 at 21:00 ; Status DC Iohexol (Omnipaque 350 Inj) 65 ml STK-MED ONCE OTHER Last administered on 14:15; Start 01/20/17 at 15:40; Stop 01/20/17 at 15:41; Status DC Lactated Ringer's 1,000 ml @ 30 mls/hr Q24H PRN IV SEE LABEL COMMENTS Last administered on 01/21/17 05:19; Start 01/20/17 at 18:00; Stop 01/21/17 at 07:32 ; Status DC Sodium Chloride 500 ml @ 30 mls/hr [id number] PRN IV SEE LABEL COMMENTS; Start at 18:00; Stop 01/21/17 at 07:32; Status DC Metoprolol Tartrate (Lopressor) 25 mg ASSISTANT PROFESSOR OF HISTORY PRN PO SEE LABEL COMMENTS; Start 01/20/17 at 18:00; Stop 01/21/17 at 07:32; Status DC Povidone Iodine (Betadine 5% Antisepsis Kit) 1 applic ASSISTANT PROFESSOR OF HISTORY PRN EACH NARE SEE LABEL COMMENTS; Start 01/20/17 at 18:00; Stop 01/21/17 at 07:32; Status DC Chlorhexidine Gluconate (Chlorhexidine 2% Cloth) 3 pack ASSISTANT PROFESSOR OF HISTORY PRN TOPICAL SEE LABEL COMMENTS; Start 01/20/17 at 18:00; Stop 01/21/17 at 07:32; Status DC Vancomycin HCl (Vancomycin Inj) 1,000 mg STK-MED ONCE .ROUTE Last administered on 01/21/17 12:35; Start 01/21/17 at 06:50; Stop 01/21/17 at 06:51; Status DC Acetaminophen 100 ml @ As Directed STK-MED ONCE IV ; Start 01/21/17 at 06:50; Stop 01/21/17 at 06:51; Status DC Hydromorphone HCl (Dilaudid Pf Inj) 2 mg STK-MED ONCE .ROUTE ; Start 01/21/17 at 06:51; Stop 01/21/17 at 06:52; Status DC Thrombin (Thrombin Top Soln) 10,000 units STK-MED ONCE .ROUTE Last administered on 01/21/17 10:00; Start 01/21/17 at 06:51; Stop 01/21/17 at 06:52 ; Status DC Cefazolin Sodium/ Dextrose 50 ml @ As Directed STK-MED ONCE .ROUTE Last administered on 01/21/17 08:59; Start 01/21/17 at 06:51; Stop 01/21/17 at 06:52 ; Status DC Propofol 200 ml @ As Directed STK-MED ONCE .ROUTE ; Start 01/21/17 at 06:51; Stop 01/21/17 at 06:52; Status DC Bupivacaine HCl/ Epinephrine Bitart (Sensorcaine-Epinephrine Pf 0.5% Inj) 30 ml STK-MED ONCE .ROUTE Last administered on 01/21/17 12:35; Start 01/21/17 at 06: 51; Stop 01/21/17 at 06:52; Status DC Gelatin (Gelfoam 100 Top) 1 foam STK-MED ONCE .ROUTE Last administered on 10:00; Start 01/21/17 at 06:51; Stop 01/21/17 at 06:52; Status DC Gentamicin Sulfate (Gentamicin Inj) 240 mg STK-MED ONCE .ROUTE Last administered on 01/21/17 10:00; Start 01/21/17 at 06:51; Stop 01/21/17 at 06:52 ; Status DC Lactated Ringer's 1,000 ml @ 30 mls/hr Q24H PRN IV SEE LABEL COMMENTS; Start 01/21/17 at 07:45; Stop 01/24/17 at 07:44 Sodium Chloride 500 ml @ 30 mls/hr [id number] PRN IV SEE LABEL COMMENTS; Start at 07:45; Stop 01/24/17 at 07:44 Metoprolol Tartrate (Lopressor) 25 mg ASSISTANT PROFESSOR OF HISTORY PRN PO SEE LABEL COMMENTS; Start 01/21/17 at 07:45; Stop 01/24/17 at 07:44 Povidone Iodine (Betadine 5% Antisepsis Kit) 1 applic ASSISTANT PROFESSOR OF HISTORY PRN EACH NARE SEE LABEL COMMENTS; Start 01/21/17 at 07:45; Stop 01/24/17 at 07:44 Chlorhexidine Gluconate (Chlorhexidine 2% Cloth) 3 pack ASSISTANT PROFESSOR OF HISTORY PRN TOPICAL SEE LABEL COMMENTS; Start 01/21/17 at 07:45; Stop 01/24/17 at 07:44 Insulin Human Regular (NovoLIN R INJ) See Protocol Table ... ASSISTANT PROFESSOR OF HISTORY PRN SQ SEE PROTOCOL TABLE; Start 01/21/17 at 07:45; Stop 01/24/17 at 07:44 Thrombin (Thrombin Top Soln) 10,000 units STK-MED ONCE .ROUTE Last administered on 01/21/17 10:00; Start 01/21/17 at 08:11; Stop 01/21/17 at 08:12 ; Status DC Gelatin (Gelfoam Powder Pack) 1 gm STK-MED ONCE .ROUTE Last administered on 10:00; Start 01/21/17 at 08:11; Stop 01/21/17 at 08:12; Status DC Dexamethasone Sodium Phosphate (Decadron Inj) 4 mg STK-MED ONCE .ROUTE ; Start 01/21/17 at 09:02; Stop 01/21/17 at 09:03; Status DC Sodium Chloride 1,000 ml @ 100 mls/hr Q10H IV ; Start 01/21/17 at 12:21 Cefazolin Sodium/ Dextrose 50 ml @ 100 mls/hr Q8H IV Last administered on 01/21t 13:00; Start 01/21/17 at 15:00; Stop 01/22/17 at 07:29 Cyclobenzaprine HCl (Flexeril) 10 mg Q8H PRN PO MUSCLE SPASM; Start 01/21/17 at 12:30 Albuterol Sulfate (Albuterol Neb) 2.5 mg Q4HR NEB PRN INH WHEEZING; Start 01/21 at 12:30 Dextrose (D50w (Vial) Inj) 50 ml UNSCH PRN IV PUSH HYPOGLYCEMIA-SEE COMMENTS; Start 01/21/17 at 12:30 Glucagon (Glucagon Inj) 1 mg UNSCH PRN OTHER HYPOGLYCEMIA-SEE COMMENTS; Start 01/21/17 at 12:30 Naloxone HCl (Narcan Inj) 0.4 mg UNSCH PRN IV PUSH RESPIRATORY RATE LESS THAN 10; Start 01/21/17 at 12:30 Diphenhydramine HCl (Benadryl Inj) 25 mg Q6H PRN IV PUSH ITCHING; Start at 12:30 Hydromorphone HCl (Dilaudid TRAVEL AGENT Inj) 6 mg UNSCH IV ; Start 01/21/17 at 12:30 TRAVEL AGENT Dosage Infused (Pha) 1 Q8HR .XX ; Start 01/21/17 at 14:00 Acetaminophen/ Hydrocodone Bitart (Felton 10-325 Mg) 1 tab Q4H PRN PO PAIN SCALE 1 TO 5; Start 01/21/17 at 12:30 Acetaminophen/ Hydrocodone Bitart ([place]ton 10-325 Mg) 2 tab Q4H PRN PO PAIN SCALE 6 TO 10; Start 01/21/17 at 12:30 (Monroe Ray MD) Medical Decision Making MDM Remarks 71 y/o male with suspected metastatic renal cell CA to spine, with pathological L3 fracture with epidural extension and severe stenosis/spinal cord compression Renal Cell CA, s/p nephrectomy at [facility] (Zara Edmondson) MDM Remarks Last 48 hours Impressions Angiography 01/20/17 0000 Signed Impressions: Service Date/Time: January 14:30 - CONCLUSION: 1. Technically successful uncomplicated bilateral L3 lumbar artery embolization, as above. Benji Hassan MD (Monroe Ray MD) Plan Plan Remarks cont neuro checks in a serial fashion. recommend MRI Brain, C and T spine, or consider PET scan Oncology Dr. Benz consulted, will also consult Dr. Awad Radiation Oncology awaiting angiography with endovascular embolization today to OR tomorrow for spinal decompression, resection of metastatic tumor and spinal fixation of L3 NPO tonight after midnight Consents in chart SCDs and TEDs for dvt prophylaxis Protonix for stress ulcer prophylaxis (Zara Edmondson) Attending Statement As above. Endovascular embolization today For surgical resection and ORIF in AM. We have discussed the details including the [id number] details of the surgical procedure, its indications, alternatives, risks, and potential complications. Risks and potential complications include, but are not limited to, infection, blood loss, CSF leak, partial or complete loss of sight in one or both eyes, paresis, paralysis, permanent pain or difficulty swallowing, loss of bowel or bladder function, complications from anesthesia, blood clot, stroke, myocardial infarction, or even . The exam, history, and the medical decision-making described in the above note were completed with the assistance of the mid-level provider. I reviewed and agree with the findings presented. I attest that I had a [id number] encounter with the patient on the same day, and personally performed and documented my assessment and findings in the medical record. (Monroe Ray MD) Zara Edmondson Jan 20, 2017 10:00 Monroe Ray MD Jan 21, 2017 14:47
--- NOTE | 2017-01-20 11:49 | HHI.PR ---
Subjective Remarks Patient resting comfortable this morning. complaining of some anxiety. at bedside Objective Vital Signs Date Time Temp Pulse Resp B/P (MAP) Pulse Ox O2 Delivery O2 Flow Rate FiO2 01/20/17 08:00 97.2 69 18 144/82 (102) 98 01/20/17 04:45 97.0 68 16 122/69 (86) 97 01/20/17 00:30 96.9 74 17 138/67 (90) 99 01/19/17 19:33 98.3 79 17 145/79 (101) 98 01/19/17 16:00 96.8 82 18 139/80 (99) 99 01/19/17 11:53 97.2 72 19 139/77 (97) 99 I/O 01/19/17 01/19/17 01/19/17 01/20/17 01/20/17 01/20/17 07:00 15:00 23:00 07:00 15:00 23:00 Intake Total 360 ml 650 ml 360 ml 0 ml Output Total 700 ml Balance -340 ml 650 ml 360 ml 0 ml Intake Oral 360 ml 650 ml 360 ml 0 ml Output Urine Total 700 ml # Voids 3 2 1 # Bowel Movements 0 1 0 0 Result Diagram: 01/20/17 0732 01/20/17 0732 Imaging Last 72 hours Impressions Lumbar Spine MRI 01/18/17 0000 Signed Impressions: Service Date/Time: Wednesday, January 18, 2017 12:30 - CONCLUSION: 1. Pathologic-appearing compression fracture of L3 with posterior expansion of the vertebral body wall, associated enhancing epidural soft tissue mass which extends into both neural foramina and severe central spinal stenosis. 2. Considering patient's history of renal cell carcinoma this likely represents metastatic disease. Roscoe Natarajan MD Objective Remarks GENERAL: alert and oriented SKIN: Warm and dry. Abdomen incision WNL HEAD: Normocephalic. EYES: No scleral icterus. No injection or drainage. NECK: Supple, trachea midline. No JVD or lymphadenopathy. CARDIOVASCULAR: Regular rate and rhythm without murmurs, gallops, or rubs. RESPIRATORY: Breath sounds equal bilaterally. No accessory muscle use. GASTROINTESTINAL: Abdomen soft, non-tender, nondistended. MUSCULOSKELETAL: No cyanosis, or edema. BACK: Nontender without obvious deformity. No CVA tenderness. Medications and IVs Current Medications Medications (Trade) Dose Ordered Sig/Brianna Route Start Time Stop Time Status Last Admin Potassium Chloride/Dextrose/ Sod Cl 1,000 ml @ 83 mls/hr Q12H3M IV 01/18/17 14:34 01/18/17 15:03 (NS Flush) 2 ml UNSCH PRN IV FLUSH 01/18/17 14:45 (NS Flush) 2 ml BID IV FLUSH 01/18/17 21:00 01/19/17 20:25 (Tylenol) 650 mg Q4H PRN PO 01/18/17 15:00 01/18/17 21:12 (Zofran Inj) 4 mg Q6H PRN IVP 01/18/17 15:00 (Ambien) 5 mg HS PRN PO 01/18/17 21:00 (Narcan Inj) 0.4 mg UNSCH PRN IV PUSH 01/18/17 14:45 (Milk Of Magnesia Liq) 30 ml Q12HR PRN PO 01/18/17 21:00 (Senokot) 17.2 mg Q12HR PRN PO 01/18/17 21:00 (Dulcolax Supp) 10 mg DAILY PRN RECTAL 01/18/17 15:00 (Lactulose Liq) 30 ml DAILY PRN PO 01/18/17 15:00 (Proscar) 5 mg DAILY PO 01/19/17 09:00 01/19/17 10:14 (Prinivil) 10 mg HS PO 01/18/17 21:00 01/19/17 20:25 (Protonix) 40 mg DAILY PO 01/19/17 09:00 01/19/17 10:14 ([place] 10-325 Mg) 1 tab Q4H PRN PO 01/18/17 21:45 (Xanax) 0.25 mg Q8H PRN PO 01/19/17 09:30 01/20/17 07:57 Vancomycin HCl 1000 mg/Sodium Chloride 250 ml @ 250 mls/hr ONCE ONCE IV 01/21/17 06:00 01/21/17 06:59 (Hibiclens 4% Top Soln) 1 applic HS TOP 01/20/17 21:00 01/22/17 21:01 Assessment and Plan Problem List: (1) Compression fracture of L3 lumbar vertebra ICD Codes: S32.030A - Wedge compression fracture of third lumbar vertebra, initial encounter for closed fracture Status: Acute (2) BPH (benign prostatic hyperplasia) ICD Codes: N40.0 - Benign prostatic hyperplasia without lower urinary tract symptoms (3) GERD (gastroesophageal reflux disease) ICD Codes: K21.9 - Gastro-esophageal reflux disease without esophagitis (4) HLD (hyperlipidemia) ICD Codes: E78.5 - Hyperlipidemia, unspecified (5) HTN (hypertension) ICD Codes: I10 - Essential (primary) hypertension (6) Epidural mass ICD Codes: G96.19 - Other disorders of meninges, not elsewhere classified Status: Acute Assessment and Plan 01/19/17 Compression fx: Neurosurgery consulted. CT of lumbar spine: Pathologic- appearing compression fracture of L3 with posterior expansion of the vertebral body wall, associated enhancing epidural soft tissue mass which extends into both neural foramina and severe central spinal stenosis. Considering patient's history of renal cell carcinoma this likely represents metastatic disease. HTN: Continue home medications. Well controlled HLD: statin is on hold GERD: Continue PPI asymptomatic Anxiety: xanax PRN BPH: Continue home medications. Labs in AM. SCD's ordered. 01/20/07 Compression fx: Neurosurgery consulted. CT of lumbar spine: Pathologic- appearing compression fracture of L3 with posterior expansion of the vertebral body wall, associated enhancing epidural soft tissue mass which extends into both neural foramina and severe central spinal stenosis. Considering patient's history of renal cell carcinoma this likely represents metastatic disease. Neuro checks. Awaiting angiography with endovascular embolization today. OR tomorrow for spinal decompression and resection of metastatic tumor. HTN: Continue home medications. Well controlled HLD: statin is on hold GERD: Continue PPI asymptomatic Anxiety: xanax PRN I and the FINANCIAL ASSISTANT have both examined this patient and reviewed this note and I agree with these findings and plan of care. Tushar Ty DO Problem Qualifiers (1) Compression fracture of L3 lumbar vertebra: Qualified Codes: S32.030A - Wedge compression fracture of third lumbar vertebra , initial encounter for closed fracture Ines Collado FINANCIAL ASSISTANT Jan 20, 2017 11:49
[2017-01-20] MEDS ORDERED: MIDAZOLAM HCL 5 MG/5 ML VIAL ONE (13:04)
[2017-01-20] MEDS: D5-1/2 NS + KCL 20 MEQ INJ 1,000 ML IV SCH (14:46)
[2017-01-20] MEDS ORDERED: HYDROmorphone HCL PF 1 MG/ML VIAL IV PRN (15:15)
--- NOTE | 2017-01-20 15:27 | PD.RAD ---
Post Procedure Progress Note Pre Procedure Diagnosis: (1) Epidural mass (2) Compression fracture of L3 lumbar vertebra Post Procedure Diagnosis: (1) Epidural mass (2) Compression fracture of L3 lumbar vertebra Procedure Date: Jan 20, 2017 Supervising Radiologist: Benji Hassan Proceduralist/Assist: Abdoulaye Erickson, RT(R), RT Carmelita(R) Anesthesia: Conscious Sedation Plan of Activity Patient to Unit: [facility] Patient Condition: Good See PACS Report for procedural detail/treatment Benji Hassan MD Jan 20, 2017 15:27
[2017-01-20] MEDS ORDERED: IOHEXOL 350 MG/ML 50 ML BTL (for RAD DIAG) OTHER ONE (15:40)
[2017-01-20] MEDS: FINASTERIDE 5 MG TAB PO SCH (16:33)
[2017-01-20] MEDS: SODIUM CHLORIDE 0.9% FLUSH 10 ML FLUSH IV FLUSH SCH ×2 (16:38→20:55)
--- NOTE | 2017-01-20 16:50 | RADRPT ---
EXAM DATE/TIME: 01/20/2017 14:30 [place] COMPARISON: ANGIOGRAM, SPINAL SELECT, January 20, 2017, 0:00. 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 Lumbar artery embolization has been requ ested prior to planned corpectomy. MEDICAL HISTORY : Kidney cancer HLD GERD HTN SURGICAL HISTORY : Right kidney removed CA ENCOUNTER: Initial ACUITY: > 1 year PAIN SCORE: 2/10 LOCATION: lower back FLUORO TIME: 18.6 minutes IMAGE SERIES: 17 ACCESS SITE: Right Femoral artery SEDATION TIME: 30 minutes CONTRAST: 1.) 65 cc Omnipaque (iohexol) 350 MEDICATION(S): 1.) 5 mg midazolam (Versed) IV 2.) 200 mcg fentanyl (Sublimaze) IV DEVICE(S): 1.) Right artery L3 Lumbar embolic coil(s) 4mm x 8cm interlock 2.) Left artery L3 Lumbar embolic coil(s) 2mm x 3mm x 2.3cm interlock 3.) Right artery L3 Lumbar PVA 355-500 microns 4.) Left artery L3 Lumbar PVA 355-500 microns 5.) Right common femoral artery Syvek pad PROCEDURE : 1. Ultrasound-guided puncture of the access site. 2. Conscious sedation with continuous EKG and Oximetry monitoring. 3. Selective catheter placement in the right lumbar artery with selective angiography 4. Coil embolization of second order muscular branch of the right lumbar artery 5. Particle embolization of the right lumbar artery (3-500 um PVA) 3. Selective catheter placement in the right lumbar artery with selective angiography 4. Coil embolization of second order muscular branch of the right lumbar artery 5. Particle embolization of the right lumbar artery (3-500 um PVA) 6. Abdominal aortogram prior to and following lumbar artery embolization The risks, benefits and alternatives to the procedure were explained and verbal and written consent w as obtained. The site was prepped in sterile fashion. Full sterile technique was used, including ca p, mask, sterile gloves and gown and a large sterile sheet. Hand hygiene and 2% chlorhexidine and/or betadine/alcohol prep was utilized per protocol for cutaneous antisepsis. Sterile gel and sterile p robe cover were utilized for ultrasound guidance. The skin and subcutaneous tissues were infiltrated with local anesthetic solution. With ultrasound and fluoroscopic guidance the selected artery was punctured and a vascular sheath was placed. 4 Ecuadorean flush catheter was advanced into the proximal abdominal aorta and aortogram was per formed. This demonstrates abnormal enhancement of the L3 vertebral body consistent with patient's kno wn history of metastatic disease. Catheter was then exchanged for a 4 Ecuadorean Nleson catheter which w as advanced into the right lumbar artery. Angiography was performed confirming hypervascularity of th e L3 vertebral body with supplied through lumbar artery branches. There is a large lateral posterior branch arising from the distal lumbar artery. Renegade microcatheter and 5 and 16 wire were then used to select the distal muscular branch and angiography was performed to confirm positioning. This bran ch was subsequently embolized with a single internal coil. Catheter was then withdrawn and the right lumbar artery was embolized to stasis with 3-500 m PVA particles. Catheter was then repositioned int o the left lumbar artery and angiography performed demonstrating similar findings including a distal inferolateral suspected muscular branch. Again, microcatheter was advanced into the distal muscular b ranch and a single coil embolization was performed. Catheter was then withdrawn and the left lumbar a rtery was embolized to stasis with 3-500 m PVA particles. Final postprocedural abdominal aortogram w as then performed demonstrating interval resolution of L3 hypervascularity. No additional significant arterial supply to this region was demonstrated. Catheter was then removed. The puncture site was closed with manual pressure and hemostasis was obtained. The patient tolerated the procedure well and there were no complications. Conscious sedation was performed with the prescribed dosages and duration as above in the presence of an independent trained radiology nurse to assist in the monitoring of the patient. EKG and oximetry remained stable throughout the procedure. CONCLUSION: 1. Technically successful uncomplicated bilateral L3 lumbar artery embolization, as above. Benji Hassan MD on January 20, 2017 at 16:41 Board Certified Radiologist. This report was verified electronically.
[2017-01-20] MEDS ORDERED: POVIDONE IODINE 5% (ANTISEPSIS KIT) 4 APPLICATIONS EACH NARE PRN (18:00)
[2017-01-20] MEDS ORDERED: METOPROLOL TARTRATE 25 MG TAB PO PRN (18:00)
[2017-01-20] MEDS ORDERED: LACTATED RINGER'S 1000 ML IV PRN (18:00)
[2017-01-20] MEDS ORDERED: CHLORHEXIDINE GLUCONATE 2 % 1 PACK (2 CLOTHS) TOPICAL PRN (18:00)
[2017-01-20] MEDS ORDERED: SODIUM CHLORID 0.9% 500 ML IV PRN (18:00)
--- NOTE | 2017-01-20 18:14 | MB ---
cc: ROLAND HOGAN MD, FEDERICO C. M.D. DATE OF CONSULTATION 01/20/17 DATE OF 1945. CHIEF COMPLAINT This is a 71-year-old gentleman who approximately four weeks ago underwent a right nephrectomy at [facility] for a renal cell carcinoma. Unfortunately, for two weeks prior to this he had increasing low back pain. After his surgery, he was recovering well but came into the hospital for admission when he had difficulty walking more than 10 feet because of severe pain in his low back. This pain radiated down both legs. This was not associated with loss of bowel or bladder control. Since being in the hospital, he has undergone an MR scan of his lumbar spine. This showed pathologic appearing compression fracture of L3 with posterior extension of the vertebral body wall associated with enhancing epidural soft tissue mass which extends into both neural foramen with severe central spinal stenosis. This gentleman has been seen by Dr. Ray. He has gone on to have angiography with embolization of the procedure today. He is due to have a decompressive surgery tomorrow morning. We are being asked to see him for consideration of postoperative treatment. PAST MEDICAL HISTORY/PAST SURGICAL HISTORY 1. Kidney cancer with resection as noted above approximately one month ago 2. Hyperlipidemia 3. Gastroesophageal reflux disease 4. Hypertension. 5. Previous abdominal surgery approximately 30 or more years ago for nerve root pain. This was a laparotomy and they said he had cartilaginous tissue surrounding some nerves which did not require resection. 6. Right nephrectomy. This gentleman otherwise has no other specific problems or complaints. FAMILY HISTORY AND SOCIAL HISTORY This gentleman's father had prostate cancer. He does use alcohol occasionally. He lives with his who is in the examining room today. 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 REVIEW OF SYSTEMS He is recovering from his recent right nephrectomy, however, he denies cardiovascular, respiratory, eyes, ears, nose or throat, neurologic, GI, GENITOURINARY, other musculoskeletal than that noted above, endocrine or skin complaints. LABORATORY DATA His white count has been normal at 5.2, hemoglobin 13.6, platelet count of 221. His calcium levels have been at the upper limits of normal at 9.8 and 10.5. His electrolytes have been normal. BUN is a slightly elevated at 23, creatinine at 1.49. As mentioned, this gentleman had diagnostic imaging including a lumbar MR spine with the results noted above. GENERAL: On exam. he is alert and oriented, resting comfortably in bed in no distress. VITAL SIGNS: Pulse is 64 and regular, he was afebrile, respiratory rate of 18 and blood pressure 148/74 and O2 sat on room air of 97%. HEENT: There was no jaundice. Conjunctivae and eyelids were normal. There is no adenopathy in his head and neck region. LUNGS: His lung huber were clear without effusion. HEART: Heart sounds were normal without murmurs, rubs or bruits. ABDOMEN: No abdominal masses, tenderness or hepatomegaly. EXTREMITIES: He is moving his lower limbs symmetrically. NEUROLOGIC: Power appears clinically normal. ASSESSMENT AND REVIEW OF DATA This gentleman is presenting status post right nephrectomy by history for renal cell carcinoma. I have not seen those pathology reports. He has presented with a compression fracture of L3 with posterior extension with what appears to be malignant disease. Because of the compression, he does need decompressive surgery and we will have final pathology at that time. I have told this gentleman and his that postoperatively he will need a full metastatic workup after he has undergone a suitable rehabilitation. I would anticipate that we will deliver a short course of radiation treatment to the tumor bed to help prevent or delay onset of local recurrence. I have discussed how radiation is delivered as well as the potential acute side effects with him. They appeared to understand all of this. We will coordinate his care with medical oncology as he proceeds. MD ELIZABETH Ramirez/ /5:40 PM /5:55 PM
[2017-01-20] MEDS: LISINOPRIL 10 MG TAB PO SCH (20:55)
[2017-01-20] MEDS: CHLORHEXIDINE GLUCONATE 4% SOLN 120 ML BTL TOP SCH (20:59)
--- NOTE | 2017-01-20 23:16 | MB ---
cc: ANIA ANTHONY M.D. DATE OF CONSULTATION 01/20/17 REASON FOR CONSULTATION Probable metastatic renal cell cancer to L3 with associated epidural soft tissue mass. PATIENT PROFILE The patient is a 71-year white male. He is . He was born in [place] and has lived in [place] for 13 years. He has one daughter. 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 He does not smoke. He has a rare drink. He is very health conscious. He plays tennis, golf and works out at a gym. HISTORY OF PRESENT ILLNESS The patient is a 71 year-old male who little more than a month ago developed hematuria and severe right flank pain. The patient saw his urologist, Dr. Morrell. He was found to have a right renal cell cancer. He was referred to the [facility] and had a robotic nephrectomy performed by Dr. Jonny Ball approximately 4 weeks ago. At about the same time he developed the flank pain, he had increasing pain in the lower back with radiation into the legs. He attributed this to a previous football injury occurring many years ago. The surgery went well. [id number] weeks after undergoing the surgery, he started to have increasing and severe pain in the lower back radiating down both legs to the knees. It became difficult to walk. He contacted the [facility] and shortly after this went to [facility] complaining of debilitating lower back pain radiating into both legs, numbness involving the legs and difficulty walking. On 01/18/2017 he had a MRI of the lumbosacral spine and was found to have a pathologic appearing compression fracture at L3 with posterior expansion of the vertebral body wall, associated enhancing epidural soft tissue mass which extends into both neural foramen and severe central spinal stenosis. This was felt to be consistent with metastatic disease from his renal cell cancer. He has since undergone embolization of the area and he is scheduled for surgery to be performed by Dr. Ray tomorrow. He has also been seen by Dr. Brown who is a radiation oncologist. He will require radiation following surgery. Except for the pain in the lower back with radiation down the legs, he is otherwise well. He tolerated his nephrectomy uneventfully The flank pain has resolved. There has been a weight loss of about 8-10 pounds in the past 3 or 4 weeks. Appetite has been diminished. REVIEW OF SYSTEMS Otherwise unremarkable. There has been no incontinence of bowel or bladder. He has had no headaches, focal weakness except for leg weakness. There has been no shortness of breath, cough, abdominal or pelvic pain. PAST SURGICAL HISTORY 1. December 24, 2016 - right radical nephrectomy at [facility] for renal cell cancer 2. When the patient was young, he was found to have an abnormality involving a pelvic bone. He required an operation for this. Whatever was found could not be removed. It was benign and was told that this might encase nerves. PAST MEDICAL HISTORY 1. Elevated cholesterol 2. Hypertension. 3. Gastroesophageal reflux. MEDICATIONS Prior to admission 1. atorvastatin 20 mg a day 2. Finasteride 3. Lisinopril 4. Protonix 5. Testosterone gel. ALLERGIES No known allergies. FAMILY HISTORY Noncontributory. REVIEW OF SYSTEMS Unremarkable except for the events described above. LABORATORY FINDINGS Hemoglobin 13.6, hematocrit 39, white count 5000, platelet count 221,000. BUN 23, creatinine 1.49, liver function tests normal. Alk phos normal. PHYSICAL EXAMINATION GENERAL: A well appearing male looking younger than stated age. VITAL SIGNS: Blood pressure 145/80, respiratory rate 18, pulse 64 afebrile. O2 sat 97%. HEENT: Head is normocephalic. Sclerae and conjunctivae normal. Oropharynx unremarkable. No cervical, supraclavicular, axillary or inguinal adenopathy. HEART: Regular rhythm. LUNGS: Clear. ABDOMEN: Soft, no hepatosplenomegaly, masses or tenderness. EXTREMITIES: No edema. MUSCULOSKELETAL: No bone pain. NEUROLOGIC: Slight proximal leg weakness bilaterally. ASSESSMENT The patient is a 71-year-old male who had a right renal cell cancer removed at the [facility] on December 24, 2016 and now appears to have metastatic disease to L3 with posterior expansion of the vertebral body with an associated enhancing epidural soft tissue mass. This most likely represents metastatic renal cell cancer. He will require neurosurgical decompression as the tumor or pathologic bone is causing pressure on the cauda equina. He will require post op radiation. It is highly unlikely that neurosurgery can remove the tumor in its entirety. Surgery will establish a diagnosis and prevent further compression of the cauda equina. Following this, he will require staging. I believe that a PET scan and an MRI of the brain would be the simplest way to stage this gentleman. Regarding systemic treatment, there are multiple effective treatments. A tyrosine kinase inhibitor such as pazopanib would be a reasonable first line treatment. Other treatments would consist of nivolumab, crizotinib and there are others. These decisions can be made after the pathology is available and the patient has been appropriately staged. In addition, if he desires he can return to the [facility] and see their medical oncologist who I personally know and we can work together. The situation was discussed with the patient and his . He will proceed with surgery tomorrow. MD DIMITRI Barfield/ /8:20 PM /10:46 PM [facility]
[2017-01-21 00:22] VITALS: BP 138/74; PULSE 74; RESP 18; TEMP 96.9; O2SAT 97
[2017-01-21] MEDS: D5-1/2 NS + KCL 20 MEQ INJ 1,000 ML IV SCH (02:02)
[2017-01-21 03:41] VITALS: BP 139/74; PULSE 74; RESP 18; TEMP 96.8; O2SAT 96
[2017-01-21] MEDS ORDERED: VANCOMYCIN INJ 1,000 MG in SODIUM CHLOR 0.9% 250 ML INJ 250 ML IV ONE (06:00)
[2017-01-21] MEDS ORDERED: ACETAMINOPHEN 1000 MG/100 ML 100 ML IV ONE (06:50)
[2017-01-21] MEDS ORDERED: VANCOMYCIN HCL 1000 MG VIAL ONE (06:50)
[2017-01-21] MEDS ORDERED: PROPOFOL 500 MG/50 ML INJ 100 ML ONE (06:51)
[2017-01-21] MEDS ORDERED: GELFOAM SIZE 100 ONE (06:51)
[2017-01-21] MEDS ORDERED: BUPIVACAINE/EPINEPHRINE 0.5% PF 30 ML VIAL ONE (06:51)
[2017-01-21] MEDS ORDERED: HYDROmorphone HCL PF 2 MG/ML VIAL ONE (06:51)
[2017-01-21] MEDS ORDERED: ceFAZolin 2 GM PREMIX 50 ML ONE (06:51)
[2017-01-21] MEDS ORDERED: THROMBIN (TOPICAL) 5,000 UNIT VIAL ONE ×2 (06:51→08:11)
[2017-01-21] MEDS ORDERED: GENTAMICIN SULFATE 80 MG/2 ML VIAL ONE (06:51)
[2017-01-21] MEDS ORDERED: CHLORHEXIDINE GLUCONATE 2 % 1 PACK (2 CLOTHS) TOPICAL PRN (07:45)
[2017-01-21] MEDS ORDERED: SODIUM CHLORID 0.9% 500 ML IV PRN (07:45)
[2017-01-21] MEDS ORDERED: LACTATED RINGER'S 1000 ML IV PRN (07:45)
[2017-01-21] MEDS ORDERED: METOPROLOL TARTRATE 25 MG TAB PO PRN (07:45)
[2017-01-21] MEDS ORDERED: INSULIN HUMAN REGULAR 1,000 UNITS/10 ML VIAL SQ PRN (07:45)
[2017-01-21] MEDS ORDERED: POVIDONE IODINE 5% (ANTISEPSIS KIT) 4 APPLICATIONS EACH NARE PRN (07:45)
--- NOTE | 2017-01-21 07:52 | EKG ---
Date Performed: 01/21/2017 Time Performed: 04:58:07 PTAGE: 71 years EKG: SINUS BRADYCARDIA BORDERLINE LEFT AXIS DEVIATION BORDERLINE ECG INTERPRETATION BASED ON A D EFAULT AGE OF 40 YEARS No significant change from prior electrocardiogram. DOCTOR: Frankie Hawkins Interpretating Date/Time 01/21/2017 07:50:46
[2017-01-21] MEDS ORDERED: GELATIN POWDER 1 GM PACKET ONE (08:11)
[2017-01-21] MEDS ORDERED: DEXAMETHASONE SOD PHOS 4 MG/ML VIAL ONE (09:02)
--- NOTE | 2017-01-21 10:52 | HHI.PR ---
Subjective Remarks Anxiously awaiting to go to OR for surgical decompression of lumbar region Objective Vital Signs Date Time Temp Pulse Resp B/P (MAP) Pulse Ox O2 Delivery O2 Flow Rate FiO2 01/21/17 03:41 96.8 74 18 139/74 (95) 96 01/21/17 00:22 96.9 74 18 138/74 (95) 97 01/20/17 20:30 96.8 79 18 154/77 (102) 99 01/20/17 15:40 64 18 148/78 (101) 97 01/20/17 15:25 54 18 151/77 (101) 98 01/20/17 15:10 61 18 143/80 (101) 97 01/20/17 14:55 97.7 58 18 141/77 (98) 98 I/O 01/20/17 01/20/17 01/20/17 01/21/17 01/21/17 01/21/17 06:59 14:59 22:59 06:59 14:59 22:59 Intake Total 0 ml 480 ml 480 ml Output Total 400 ml Balance 0 ml -400 ml 480 ml 480 ml Intake Oral 0 ml 480 ml 480 ml Output Urine Total 400 ml # Voids 1 3 3 # Bowel Movements 0 0 0 Result Diagram: 01/20/17 0732 01/20/17 0732 Imaging Last 72 hours Impressions Angiography 01/20/17 0000 Signed Impressions: Service Date/Time: January 14:30 - CONCLUSION: 1. Technically successful uncomplicated bilateral L3 lumbar artery embolization, as above. Benji Hassan MD Objective Remarks GENERAL: alert and oriented SKIN: Warm and dry. Abdomen incision WNL HEAD: Normocephalic. EYES: No scleral icterus. No injection or drainage. NECK: Supple, trachea midline. No JVD or lymphadenopathy. CARDIOVASCULAR: Regular rate and rhythm without murmurs, gallops, or rubs. RESPIRATORY: Breath sounds equal bilaterally. No accessory muscle use. GASTROINTESTINAL: Abdomen soft, non-tender, nondistended. MUSCULOSKELETAL: No cyanosis, or edema. BACK: Nontender without obvious deformity. No CVA tenderness. Medications and IVs Current Medications Medications (Trade) Dose Ordered Sig/Brianna Route Start Time Stop Time Status Last Admin Potassium Chloride/Dextrose/ Sod Cl 1,000 ml @ 83 mls/hr Q12H3M IV 01/18/17 14:34 01/18/17 15:03 (NS Flush) 2 ml UNSCH PRN IV FLUSH 01/18/17 14:45 (NS Flush) 2 ml BID IV FLUSH 01/18/17 21:00 01/20/17 20:55 (Tylenol) 650 mg Q4H PRN PO 01/18/17 15:00 01/18/17 21:12 (Zofran Inj) 4 mg Q6H PRN IVP 01/18/17 15:00 (Ambien) 5 mg HS PRN PO 01/18/17 21:00 (Narcan Inj) 0.4 mg UNSCH PRN IV PUSH 01/18/17 14:45 (Milk Of Magnesia Liq) 30 ml Q12HR PRN PO 01/18/17 21:00 (Senokot) 17.2 mg Q12HR PRN PO 01/18/17 21:00 (Dulcolax Supp) 10 mg DAILY PRN RECTAL 01/18/17 15:00 (Lactulose Liq) 30 ml DAILY PRN PO 01/18/17 15:00 (Proscar) 5 mg DAILY PO 01/19/17 09:00 01/20/17 16:33 (Prinivil) 10 mg HS PO 01/18/17 21:00 01/20/17 20:55 (Protonix) 40 mg DAILY PO 01/19/17 09:00 01/19/17 10:14 (Richards 10-325 Mg) 1 tab Q4H PRN PO 01/18/17 21:45 (Xanax) 0.25 mg Q8H PRN PO 01/19/17 09:30 01/20/17 20:57 (Hibiclens 4% Top Soln) 1 applic HS TOP 01/20/17 21:00 01/22/17 21:01 Lactated Ringer's 1,000 ml @ 30 mls/hr Q24H PRN IV 01/21/17 07:45 01/24/17 07:44 Sodium Chloride 500 ml @ 30 mls/hr [id number] PRN IV 01/21/17 07:45 01/24/17 07:44 (Lopressor) 25 mg SENIOR CORPORATE ACCOUNTANT PRN PO 01/21/17 07:45 01/24/17 07:44 (Betadine 5% Antisepsis Kit) 1 applic SENIOR CORPORATE ACCOUNTANT PRN EACH NARE 01/21/17 07:45 01/24/17 07:44 (Chlorhexidine 2% Cloth) 3 pack SENIOR CORPORATE ACCOUNTANT PRN TOPICAL 01/21/17 07:45 01/24/17 07:44 (NovoLIN R INJ) See Protocol Table ... SENIOR CORPORATE ACCOUNTANT PRN SQ 01/21/17 07:45 01/24/17 07:44 Assessment and Plan Problem List: (1) Compression fracture of L3 lumbar vertebra ICD Codes: S32.030A - Wedge compression fracture of third lumbar vertebra, initial encounter for closed fracture Status: Acute (2) BPH (benign prostatic hyperplasia) ICD Codes: N40.0 - Benign prostatic hyperplasia without lower urinary tract symptoms (3) GERD (gastroesophageal reflux disease) ICD Codes: K21.9 - Gastro-esophageal reflux disease without esophagitis (4) HLD (hyperlipidemia) ICD Codes: E78.5 - Hyperlipidemia, unspecified (5) HTN (hypertension) ICD Codes: I10 - Essential (primary) hypertension (6) Epidural mass ICD Codes: G96.19 - Other disorders of meninges, not elsewhere classified Status: Acute Assessment and Plan 01/19/17 Compression fx: Neurosurgery consulted. CT of lumbar spine: Pathologic- appearing compression fracture of L3 with posterior expansion of the vertebral body wall, associated enhancing epidural soft tissue mass which extends into both neural foramina and severe central spinal stenosis. Considering patient's history of renal cell carcinoma this likely represents metastatic disease. HTN: Continue home medications. Well controlled HLD: statin is on hold GERD: Continue PPI asymptomatic Anxiety: xanax PRN BPH: Continue home medications. Labs in AM. SCD's ordered. 01/20/07 Compression fx: Neurosurgery consulted. CT of lumbar spine: Pathologic- appearing compression fracture of L3 with posterior expansion of the vertebral body wall, associated enhancing epidural soft tissue mass which extends into both neural foramina and severe central spinal stenosis. Considering patient's history of renal cell carcinoma this likely represents metastatic disease. Neuro checks. Awaiting angiography with endovascular embolization today. OR tomorrow for spinal decompression and resection of metastatic tumor. HTN: Continue home medications. Well controlled HLD: statin is on hold GERD: Continue PPI asymptomatic Anxiety: xanax PRN 01/21/17 Compression fx: Patient seen early this morning plan to OR this morning for spinal decompression and resection of metastatic tumor. Following this he will require staging. PET scan and MRI of brain. He will require post op radiation. Most likely represent metastatic renal carcinoma. HTN: Continue current medication regimen well controlled. I and the CAPSULE FILLING MACHINE OPERATOR have both examined this patient and reviewed this note and I agree with these findings and plan of care. Tushar Ty DO Problem Qualifiers (1) Compression fracture of L3 lumbar vertebra: Qualified Codes: S32.030A - Wedge compression fracture of third lumbar vertebra , initial encounter for closed fracture Ines Collado. CAPSULE FILLING MACHINE OPERATOR Jan 21, 2017 10:52
[2017-01-21] MEDS ORDERED: RESP: ALBUTEROL 2.5 MG/3 ML NEB (PRN) INH (12:30)
[2017-01-21] MEDS ORDERED: diphenhydrAMINE HCL 50 MG/ML VIAL IV PUSH PRN (12:30)
[2017-01-21] MEDS ORDERED: DEXTROSE 50% IN WATER 50 ML VIAL(D50) IV PUSH PRN (12:30)
[2017-01-21] MEDS ORDERED: GLUCAGON 1 MG/ML VIAL OTHER PRN (12:30)
[2017-01-21] MEDS ORDERED: NALOXONE HCL 0.4 MG/ML AMP IV PUSH PRN (12:30)
[2017-01-21] MEDS: ceFAZolin 2 GM PREMIX 50 ML IV SCH ×2 (13:00→23:53)
[2017-01-21] MEDS ORDERED: DO NOT ADM ANY ANTICOAGULANT DRUGS PRN (14:15)
--- NOTE | 2017-01-21 14:38 | PD.OP ---
Operative Report Date of Surgery: Jan 21, 2017 Preoperative Diagnosis: L3 pathological fracture with metastatic neoplasm Postoperative Diagnosis: L3 pathological fracture with metastatic neoplasm Procedure: L3 laminectomy, open reduction of fracture, resection of metastatic neoplasm, , L2-L4 instrumental fixation using transpedicular screws and rods, L2-L4 posterolateral fusion using autologous bone graft and demineralized bone matrix. Microsurgical dissection Anesthesia: general Surgeon: Monroe Ray Air Gun Operator(s): Afshan Andrade Operation and Findings: INDICATIONS FOR THE SURGICAL PROCEDURE Mr. Da Silva is a 71 year-old male who presented with severe mechanical back pain related to a pathological spinal fracture and metastatic tumor with severe compression of the neural structures. The patient has failed medical nonsurgical management. A surgical decompression with reduction of the fracture and arthrodhesis were indicated as the most appropriate treatment. The [id number] details of the procedure, indications, alternatives, risks and potential complications were fully discussed with the patient. The patient fully understood. All questions were answered. No guarantees were given. The patient voiced requesting the procedure and provided informed consents. The patient had been offered the alternative of delaying the procedure and continuing with nonsurgical management. DETAILS OF THE SURGICAL PROCEDURE Prior to the procedure,the surgical incision was marked in the preoperative surgical holding room, and the procedure, risks, and potential complications revisited with the patient. The L3 vertebral body and tumor were embolized by an interventional radiologist. Placement of electrodes for intraoperative neurophysiological monitoring was completed. The patient was taken to the operative room, and following induction of general anesthesia, endotracheal intubation was performed. A Tee catheter bilateral Albino and sequential compression devices were placed and kept throughout the procedure. The patient was carefully rolled into the prone position over a Ramón table with a gell rolls. All pressure points were carefully padded with eggcrate mattress. The eyes were tapped shut after ointment was applied by the anesthesiologist to prevent corneal abrasion. A Luca hugger was placed over the expossed lower body to maintain control of the core body temperature. The electrophysiological team placed the needles and electrodes in their proper location and baseline SSEP's and motor evoked potentials were registered. The thoracic lumbar region was prepped and draped in the usual sterile fashion. A localizing X-ray was performed with the C-arm and the fracture was localized. A medial incision was outlined from the spinous process of L2 down to L4. Surgical Approach The skin incision was made with a #10 blade. Dissection was carried out through the thoracolumbar fascia with a Bovie. The spinous process of L2 down to L4 were exposed and a subperiosteal dissection was performed over the spinous process, lamina facet and transverse processes of L2 down to L4. Bilateral self retaining retractors were placed on incisions. Instrumental fixation At this point in the procedure, placement of bilateral transpedicular screws was necessary for stabilization of the spine. The levels were carefully marked with a TPS and bilateral transpedicular screws were placed using a standard fashion. Initially, the entry point for the screw was selected anatomically at the junction of the facet, with the transverse process, and the pars interarticularis. This was started with a Giamshetti needle followed by the use of a polanco wire. A tap was used to create the threads for the screws. Finally, bilateral transpedicular screws were carefully placed bilaterally at L2, L3, and L4 under fluoroscopic visualization. An appropriate purchase was achieved with all other screws. The position of each screw was assessed anatomically with an AP, lateral , oblique Xrays. An intraoperative scan view of the spine was then performed using the iso-centric c-arm. Each lumbar screw was then assessed electrophysiologically with a nerve stimulator. Finally, bilateral transpedicular screws were carefully placed bilaterally at L2 down to L4 under fluoroscopic visualization. An appropriate purchase was achieved with all screws. The position of each screw was assessed anatomically with an AP, lateral, oblique Xrays. An intraoperative scan view of the spine was then performed using the iso-centric c-arm. Each lumbar screw was then assessed electrophysiologically with a nerve stimulator. Open reduction of the fracture Once all screws were in position, the operative microscope was draped in the usual sterile fashion and brought to the field. The rest of the surgical procedure was performed using microdissection technique with the exception of the closure. Under the operative microscope, a laminectomy was performed at L3. It was necessary to drill the facet entrance to the pedicle in order to allow access to the anterior surface of the thecal sac without retraction on the spinal cord. Epidural veins were coagulated with the bipolar and incised with the microscissors. The retropulsed bones were assessed with an nerve hook. They were causing significant compression of the dural sac. A shoe impactor was placed on the anterior epidural space and the bone fragments were impacted back into the vertebral body under fluoroscopic guidance. An excellent decompression was achieved using this technique. Posterolateral fusion Then, the lateral gutters of the spine, facets and transverse processes were carefully decorticated with a TPS drill in preparation for the posterior lateral fusion. The incision was thoroughly irrigated with antibiotic solution. The posterolateral fusion was performed by carefully packing the gutters of the spine with a bone graft combined with demineralized bone matrix. Completion of the Procedure The rods were brought to the field. Sequential application of the cap was achieved which allowed for further correction of the kyphosis. Final tightening of all screws was achieved with a torque wrench. The incision was thoroughly irrigated with several liters of antibiotic solution. The decompression was reassessed with an nerve hook and found to be appropriate. Seven mm Ramón- Donovan drain was left on the epidural space and was then externalized through a separate stab incision. The incision was then closed in layers. 0 Vicryl with interrupted sutures were used to close the thoracolumbar fascia. The superficial fascia was closed with 0 Vicryl sutures. Three-0 Vicryl was used to close the subcutaneous tissue. The skin was closed with 4-0 running subcuticular Vicryl. Dermabond was applied to the skin. The drain was secured 3- 0 nylon. At the end of the procedure the sponges, needles, and instrument counts were all correct. Estimated blood loss was 300 cc's. No complications occurred. The patient received prophylactic antibiotics. The patient was then extubated and transferred to the recovery room in stable condition. The entire procedure was performed using electrophysiological monitor of the electromyogram, evoked potential and sphincters. No intraoperative abnormalities were detected. Monroe Ray MD Jan 21, 2017 14:38
[2017-01-21] MEDS: SODIUM CHLOR 0.9% 1000 ML INJ 1,000 ML IV SCH ×2 (14:45→23:54)
[2017-01-21] MEDS: HYDROmorphone HCL PCA 6 MG/30 ML IV SCH (14:46)
--- NOTE | 2017-01-21 14:56 | RADRPT ---
EXAM DATE/TIME: 01/21/2017 14:29 [facility] COMPARISON: No previous studies available for comparison. INDICATIONS : Post central line placement. MEDICAL HISTORY : Renal cell carcinoma. Hypertension. SURGICAL HISTORY : Tonsillectomy. Nephrectomy, right. Right shoulder repair. Bilateral knee surgery. Bilateral carpal tu nnel. ENCOUNTER: Initial ACUITY: 1 day PAIN SCORE: Non-responsive. LOCATION: Bilateral chest FINDINGS: Portable AP view of the chest demonstrates a normal-sized cardiac silhouette. Right IJ line tip is in the SVC. No pneumothorax is visualized. There is mild bibasilar opacity, left greater than right. No pleural effusion is seen. Bones and soft tissues demonstrate no acute finding. CONCLUSION: 1. Right IJ line distal tip in the SVC. No pneumothorax is present. 2. Mild atelectasis versus consolidation at the lung bases. Elias Tyler MD on January 21, 2017 at 14:54 Board Certified Radiologist. This report was verified electronically.
--- NOTE | 2017-01-21 15:32 | RADRPT ---
EXAM DATE/TIME: 01/21/2017 09:09 [facility] COMPARISON: No previous studies available for comparison. INDICATIONS : Fracture resection, tumor L2-3, L3-4. Hardware placement MEDICAL HISTORY : Renal cell CA SURGICAL HISTORY : Nephrectomy ENCOUNTER: Initial ACUITY: 1 day PAIN SCORE: Non-responsive. LOCATION: Lumbar spine FINDINGS: Two view examination was performed. Targeted intraoperative images of the mid and lower lumbar spine show bilateral transpedicular fixation from L2-L4. Hardware appears to be intact with some marginal s purring at every visualized lumbar level. No significant listhesis. BIJAN type drain is identified in th e surgical bed with embolization type coils leftward at the level of the L3-4 disc interspace. CONCLUSION: 1. Bilateral transpedicular fixation from L2-L4 with no significant listhesis. 2. Embolization type coils to the left of the L3-4 disc interspace. Campbell Thurston MD on January 21, 2017 at 15:28 Board Certified Radiologist. This report was verified electronically.
[2017-01-21 16:00] VITALS: BP 140/76; PULSE 86; RESP 18; TEMP 96.4; O2SAT 99
[2017-01-21 19:05] VITALS: BP 135/71; PULSE 84; RESP 18; TEMP 96.7; O2SAT 99
[2017-01-21] MEDS: CHLORHEXIDINE GLUCONATE 4% SOLN 120 ML BTL TOP SCH (21:00)
[2017-01-21] MEDS: LISINOPRIL 10 MG TAB PO SCH (21:11)
[2017-01-21] MEDS: PCA - TOTAL MG DILAUDID DELIVERED PER SHIFT SCH (21:12)
[2017-01-21 23:23] VITALS: BP 120/59; PULSE 81; RESP 18; TEMP 97.7; O2SAT 94
[2017-01-22] VITALS (7 sets, daily range): BP systolic 114–140; BP diastolic 56–69; PULSE 65–87; RESP 17–20; TEMP 96.8–99.6; O2SAT 94–99
[2017-01-22 03:48] LABS: AUTOMATED NEUTROPHIL # 6.7 TH/MM3 (1.8-7.7); BASOPHIL % 0.3 % (0.0-2.0); EOSINOPHIL % 0.4 % (0.0-4.0); HEMATOCRIT 29.9 % (39.0-51.0); HEMO FLAGS DIFF FINAL; LYMPH % 9.1 % (9.0-44.0); LYMPHOCYTE # 0.8 TH/MM3 (1.0-4.8); MEAN CELL VOLUME 90.2 FL (80.0-100.0); MEAN CORPUSCULAR HEMOGLOBIN 31.9 PG (27.0-34.0); MEAN CORPUSCULAR HGB CONC 35.4 % (32.0-36.0); MONO % 10.7 % (0.0-8.0); NEUT % 79.5 % (16.0-70.0); PLATELET COUNT 191 TH/MM3 (150-450); RED BLOOD COUNT 3.32 MIL/MM3 (4.50-5.90); RED CELL DISTRIBUTION WIDTH 12.4 % (11.6-17.2); WHITE BLOOD COUNT 8.5 TH/MM3 (4.0-11.0)
[2017-01-22 04:12] LABS: BICARBONATE 30.7 MEQ/L (21.0-32.0); POTASSIUM 4.2 MEQ/L (3.5-5.1)
[2017-01-22] MEDS: PCA - TOTAL MG DILAUDID DELIVERED PER SHIFT SCH ×3 (06:00→21:28)
[2017-01-22] MEDS: ceFAZolin 2 GM PREMIX 50 ML IV SCH (06:30)
[2017-01-22] MEDS: HYDROmorphone HCL PCA 6 MG/30 ML IV SCH (08:25)
[2017-01-22] MEDS: SODIUM CHLORIDE 0.9% FLUSH 10 ML FLUSH IV FLUSH SCH ×2 (08:28→21:30)
[2017-01-22] MEDS: PANTOPRAZOLE SOD 40 MG DELAYED RELEASE TAB PO SCH (08:28)
[2017-01-22] MEDS: FINASTERIDE 5 MG TAB PO SCH (08:28)
--- NOTE | 2017-01-22 08:56 | HHI.PR ---
Subjective Remarks post op day one feeling well may be a candidate for [facility] Objective Vital Signs Date Time Temp Pulse Resp B/P (MAP) Pulse Ox O2 Delivery O2 Flow Rate FiO2 01/22/17 08:25 18 01/22/17 06:00 18 01/22/17 03:40 97.1 82 18 114/56 (75) 94 01/21/17 23:23 97.7 81 18 120/59 (79) 94 01/21/17 21:12 16 01/21/17 19:05 96.7 84 18 135/71 (92) 99 01/21/17 16:00 96.4 86 18 140/76 (97) 99 01/21/17 15:30 97.6 94 16 114/58 (76) 98 Nasal Cannula 2 01/21/17 15:15 96 15 115/60 (78) 96 Nasal Cannula 2 01/21/17 15:00 95 15 117/63 (81) 98 Nasal Cannula 3 01/21/17 14:46 15 01/21/17 14:45 96 15 119/68 (85) 97 Nasal Cannula 3 01/21/17 14:30 98 15 120/69 (86) 100 Nasal Cannula 4 01/21/17 14:15 98.5 99 18 128/66 (86) 99 Nasal Cannula 4 I/O 01/21/17 01/21/17 01/21/17 01/22/17 01/22/17 01/22/17 07:00 15:00 23:00 07:00 15:00 23:00 Intake Total 480 ml 2000 ml 460 ml 480 ml Output Total 650 ml 1600 ml 690 ml Balance 480 ml 1350 ml -1140 ml -210 ml Intake Oral 480 ml 360 ml 480 ml IV Total 100 ml Other 2000 ml Output Urine Total 450 ml 1500 ml 650 ml Drainage Total 100 ml 40 ml Estimated Blood Loss 200 ml # Voids 3 # Bowel Movements 0 0 0 Result Diagram: 01/22/17 0325 01/22/17 0325 Imaging Last Impressions Lumbar Spine X-Ray 01/21/17 0000 Signed Impressions: Service Date/Time: Saturday, January 21, 2017 09:09 - CONCLUSION: 1. Bilateral transpedicular fixation from L2-L4 with no significant listhesis. 2. Embolization type coils to the left of the L3-4 disc interspace. Campbell Thurston MD Chest X-Ray 01/21/17 0000 Signed Impressions: Service Date/Time: Saturday, January 21, 2017 14:29 - CONCLUSION: 1. Right IJ line distal tip in the SVC. No pneumothorax is present. 2. Mild atelectasis versus consolidation at the lung bases. Elias Tyler MD Angiography 01/20/17 0000 Signed Impressions: Service Date/Time: January 14:30 - CONCLUSION: 1. Technically successful uncomplicated bilateral L3 lumbar artery embolization, as above. Benji Hassan MD Lumbar Spine MRI 01/18/17 0000 Signed Impressions: Service Date/Time: Wednesday, January 18, 2017 12:30 - CONCLUSION: 1. Pathologic-appearing compression fracture of L3 with posterior expansion of the vertebral body wall, associated enhancing epidural soft tissue mass which extends into both neural foramina and severe central spinal stenosis. 2. Considering patient's history of renal cell carcinoma this likely represents metastatic disease. Roscoe Natarajan MD Procedures spm lumbar stabilization with screw fixation after arterial embolization Objective Remarks GENERAL: Well-nourished, well-developed patient. SKIN: Warm and dry. HEAD: Normocephalic. EYES: No scleral icterus. No injection or drainage. NECK: Supple, trachea midline. No JVD or lymphadenopathy. CARDIOVASCULAR: Regular rate and rhythm without murmurs, gallops, or rubs. RESPIRATORY: Breath sounds equal bilaterally. No accessory muscle use. GASTROINTESTINAL: Abdomen soft, non-tender, nondistended. EXTREMITIES: No cyanosis, or edema.pain and paresthesia lower extremities remain not increased NEUROLOGICAL: Awake, alert, and oriented x 3. Non-focal. Medications and IVs Reported Meds & Active Scripts Active Reported Testosterone 25 Mg/2.5 Gram (1 %) Gel.packet 1 Applic T-DERMAL DAILY Lisinopril 10 Mg Tab 10 Mg PO HS Pantoprazole (Pantoprazole Sodium) 40 Mg Tab 40 Mg PO DAILY Finasteride 5 Mg Tab 5 Mg PO DAILY Do not crush. Atorvastatin (Atorvastatin Calcium) 20 Mg Tab 20 Mg PO HS Inpatient Medications Acetaminophen (Tylenol) 650 mg Q4H PRN PO TEMP > 100.4 Last administered on t 21:12; Start 01/18/17 at 15:00 Acetaminophen/ Hydrocodone Bitart ([place] 10-325 Mg) 2 tab Q4H PRN PO PAIN SCALE 6 TO 10; Start 01/21/17 at 12:30 Albuterol Sulfate (Albuterol Neb) 2.5 mg Q4HR NEB PRN INH WHEEZING; Start 01/21 at 12:30 Alprazolam (Xanax) 0.25 mg Q8H PRN PO ANXIETY Last administered on 01/20/17 20 :57; Start 01/19/17 at 09:30 Bisacodyl (Dulcolax Supp) 10 mg DAILY PRN RECTAL SEVERE CONSITIPATION; Start 01/18/17 at 15:00 Cefazolin Sodium/ Dextrose 50 ml @ 100 mls/hr Q8H IV Last administered on 01/22 06:30; Start 01/21/17 at 15:00; Stop 01/22/17 at 07:29; Status DC Chlorhexidine Gluconate (Chlorhexidine 2% Cloth) 3 pack [employer]ENT PRN TOPICAL SEE LABEL COMMENTS; Start 01/21/17 at 07:45; Stop 01/24/17 at 07:44 Chlorhexidine Gluconate (Hibiclens 4% Top Soln) 1 applic HS TOP ; Start at 21:00; Stop 01/22/17 at 21:01 Cyclobenzaprine HCl (Flexeril) 10 mg Q8H PRN PO MUSCLE SPASM; Start 01/21/17 at 12:30 Dextrose (D50w (Vial) Inj) 50 ml UNSCH PRN IV PUSH HYPOGLYCEMIA-SEE COMMENTS; Start 01/21/17 at 12:30 Diphenhydramine HCl (Benadryl Inj) 25 mg Q6H PRN IV PUSH ITCHING; Start at 12:30 Finasteride (Proscar) 5 mg DAILY PO Last administered on 01/22/17 08:28; Start 01/19/17 at 09:00 Glucagon (Glucagon Inj) 1 mg UNSCH PRN OTHER HYPOGLYCEMIA-SEE COMMENTS; Start 01/21/17 at 12:30 Hydromorphone HCl (Dilaudid VETERINARY RADIOLOGIST Inj) 6 mg UNSCH IV Last administered on 08:25; Start 01/21/17 at 12:30 Hydromorphone HCl (Dilaudid Pf Inj) 1 mg Q30M PRN IV PAIN GREATER THAN 5 Last administered on 01/20/17 16:35; Start 01/20/17 at 15:15; Stop 01/20/17 at 21:00 ; Status DC Insulin Human Regular (NovoLIN R INJ) See Protocol Table ... [employer] SERVICE AGENT PRN SQ SEE PROTOCOL TABLE; Start 01/21/17 at 07:45; Stop 01/24/17 at 07:44 Lactated Ringer's 1,000 ml @ 30 mls/hr Q24H PRN IV SEE LABEL COMMENTS; Start 01/21/17 at 07:45; Stop 01/24/17 at 07:44 Lactulose (Lactulose Liq) 30 ml DAILY PRN PO SEVERE CONSITIPATION; Start at 15:00 Lisinopril (Prinivil) 10 mg HS PO Last administered on 01/21/17 21:11; Start 01/18/17 at 21:00 Magnesium Hydroxide (Milk Of Magnesia Liq) 30 ml Q12HR PRN PO Mild constipation ; Start 01/18/17 at 21:00 Metoprolol Tartrate (Lopressor) 25 mg [employer]ENT PRN PO SEE LABEL COMMENTS; Start 01/21/17 at 07:45; Stop 01/24/17 at 07:44 Miscellaneous Information ALL NURSING DEPARTME... UNSCH PRN .XX SEE LABEL COMMENTS; Start 01/21/17 at 14:15; Stop 01/22/17 at 14:14 Morphine Sulfate (Morphine Inj) 4 mg ONCE ONCE IV PUSH Last administered on 10:57; Start 01/18/17 at 10:45; Stop 01/18/17 at 10:46; Status DC Naloxone HCl (Narcan Inj) 0.4 mg UNSCH PRN IV PUSH RESPIRATORY RATE LESS THAN 10; Start 01/21/17 at 12:30 Ondansetron HCl (Zofran Inj) 4 mg Q6H PRN IVP NAUSEA OR VOMITING; Start at 15:00 Pantoprazole Sodium (Protonix) 40 mg DAILY PO Last administered on 01/22/17 08 :28; Start 01/19/17 at 09:00 VETERINARY RADIOLOGIST Dosage Infused (Pha) 1 Q8HR .XX Last administered on 01/22/17 06:00; Start 01/21/17 at 14:00 Potassium Chloride/Dextrose/ Sod Cl 1,000 ml @ 83 mls/hr Q12H3M IV Last administered on 01/18/17 15:03; Start 01/18/17 at 14:34; Stop 01/21/17 at 15:07 ; Status DC Povidone Iodine (Betadine 5% Antisepsis Kit) 1 applic [employer] AGENT PRN EACH NARE SEE LABEL COMMENTS; Start 01/21/17 at 07:45; Stop 01/24/17 at 07:44 Sennosides (Senokot) 17.2 mg Q12HR PRN PO Moderate constipation; Start at 21:00 Sodium Chloride 1,000 ml @ 100 mls/hr Q10H IV Last administered on 01/21/17 23:54; Start 01/21/17 at 12:21 Sodium Chloride (NS Flush) 2 ml BID IV FLUSH Last administered on 01/20/17 20: 55; Start 01/18/17 at 21:00 Vancomycin HCl 1000 mg/Sodium Chloride 250 ml @ 250 mls/hr ONCE ONCE IV ; Start 01/21/17 at 06:00; Stop 01/21/17 at 06:59; Status DC Zolpidem Tartrate (Ambien) 5 mg HS PRN PO INSOMNIA; Start 01/18/17 at 21:00 Assessment and Plan Problem List: (1) Compression fracture of L3 lumbar vertebra ICD Codes: S32.030A - Wedge compression fracture of third lumbar vertebra, initial encounter for closed fracture Status: Acute (2) Epidural mass ICD Codes: G96.19 - Other disorders of meninges, not elsewhere classified Status: Acute Assessment and Plan POD1 consider [facility] if needed Discussed Condition With pt and Discharge Planning rehab? home Problem Qualifiers (1) Compression fracture of L3 lumbar vertebra: Qualified Codes: S32.030A - Wedge compression fracture of third lumbar vertebra , initial encounter for closed fracture Tushar Ty DO Jan 22, 2017 08:56
[2017-01-22] MEDS: SODIUM CHLOR 0.9% 1000 ML INJ 1,000 ML IV SCH ×2 (10:03→18:21)
--- NOTE | 2017-01-22 12:44 | HHI.NSPN ---
History Interval History Mr Da Silva is a 71-year-old gentleman who presents with intractable back pain. On MRI he was noted to have an enhancing lesion involving the T3 vertebral body with epidural tumor extension and compression of the neural elements. 01/21 status post spinal decompression at L3 with internal stabilization L2-L4 01/22 patient endorses moderate back pain. He was able to stand with minimal difficulties. Exam Results Vital Signs Date Time Temp Pulse Resp B/P (MAP) Pulse Ox O2 Delivery O2 Flow Rate FiO2 01/22/17 08:55 16 01/22/17 08:00 96.8 65 121/65 (83) 99 01/21/17 15:30 Nasal Cannula 2 01/18/17 17:55 21 Intake and Output 01/22/17 01/22/17 01/23/17 08:00 16:00 00:00 Intake Total 480 ml 1000 ml Output Total 690 ml Balance -210 ml 1000 ml Physical Examination Gen: Patient is awake and alert. He is in no acute distress. HEENT: normocephalic and atraumatic Neck: Supple, trachea is midline. CV: Regular rate and rhythm Pulm: CTA bilaterally Abd: Soft, nontender, non-distended, +bs Ext: No edema Integument: Dressing in place. BIJAN show serosanguineous output Neuro: Alert and oriented 3 Speech is clear, appropriate, and non-aphasic CN II-XII: Grossly intact Motor: 5/5 to all muscle groups tested. No focal weakness. Sensory: Intact to light touch throughout. DTR: 2+ patella. No clonus at the ankles. Lab, Micro, Other Results Allergies Coded Allergies Type Severity Reaction Last Updated Verified No Known Allergies Allergy Mild 01/21/17 Yes Recent Impressions Lumbar Spine X-Ray 01/21/17 0000 Signed Impressions: Service Date/Time: Saturday, January 21, 2017 09:09 - CONCLUSION: 1. Bilateral transpedicular fixation from L2-L4 with no significant listhesis. 2. Embolization type coils to the left of the L3-4 disc interspace. Campbell Thurston MD Chest X-Ray 01/21/17 0000 Signed Impressions: Service Date/Time: Saturday, January 21, 2017 14:29 - CONCLUSION: 1. Right IJ line distal tip in the SVC. No pneumothorax is present. 2. Mild atelectasis versus consolidation at the lung bases. Elias Tyler MD Angiography 01/20/17 0000 Signed Impressions: Service Date/Time: January 14:30 - CONCLUSION: 1. Technically successful uncomplicated bilateral L3 lumbar artery embolization, as above. Benji Hassan MD 01/20/17 01/20/17 01/21/17 01/21/17 01/22/17 01/22/17 06:00 18:00 06:00 18:00 06:00 18:00 Intake Total 360 ml 0 ml 960 ml 2100 ml 360 ml 1480 ml Output Total 400 ml 840 ml 1410 ml 690 ml Balance 360 ml -400 ml 960 ml 1260 ml -1050 ml 790 ml Intake Oral 360 ml 0 ml 960 ml 360 ml 480 ml IV Total 100 ml 1000 ml Other 2000 ml Output Urine Total 400 ml 600 ml 1350 ml 650 ml Drainage Total 40 ml 60 ml 40 ml Estimated Blood Loss 200 ml # Voids 2 1 6 # Bowel Movements 0 0 0 0 0 Laboratory Tests Test 01/19/17 18:27 01/20/17 07:32 01/22/17 03:25 Prothrombin Time 10.9 SEC Prothromb Time International Ratio 1.1 RATIO Activated Partial Thromboplast Time 26.3 SEC White Blood Count 5.2 TH/MM3 8.5 TH/MM3 Red Blood Count 4.41 MIL/MM3 3.32 MIL/MM3 Hemoglobin 13.6 GM/DL 10.6 GM/DL Hematocrit 39.8 % 29.9 % Mean Corpuscular Volume 90.2 FL 90.2 FL Mean Corpuscular Hemoglobin 30.8 PG 31.9 PG Mean Corpuscular Hemoglobin Concent 34.2 % 35.4 % Red Cell Distribution Width 12.3 % 12.4 % Platelet Count 221 TH/MM3 191 TH/MM3 Mean Platelet Volume 8.0 FL 7.5 FL Neutrophils (%) (Auto) 68.2 % 79.5 % Lymphocytes (%) (Auto) 16.8 % 9.1 % Monocytes (%) (Auto) 9.5 % 10.7 % Eosinophils (%) (Auto) 4.7 % 0.4 % Basophils (%) (Auto) 0.8 % 0.3 % Neutrophils # (Auto) 3.6 TH/MM3 6.7 TH/MM3 Lymphocytes # (Auto) 0.9 TH/MM3 0.8 TH/MM3 Monocytes # (Auto) 0.5 TH/MM3 0.9 TH/MM3 Eosinophils # (Auto) 0.2 TH/MM3 0.0 TH/MM3 Basophils # (Auto) 0.0 TH/MM3 0.0 TH/MM3 CBC Comment DIFF FINAL DIFF FINAL Differential Comment Blood Urea Nitrogen 23 MG/DL 21 MG/DL Creatinine 1.49 MG/DL 1.41 MG/DL Random Glucose 122 MG/DL 115 MG/DL Calcium Level 10.5 MG/DL 9.0 MG/DL Sodium Level 138 MEQ/L 138 MEQ/L Potassium Level 4.7 MEQ/L 4.2 MEQ/L Chloride Level 102 MEQ/L 102 MEQ/L Carbon Dioxide Level 32.8 MEQ/L 30.7 MEQ/L Anion Gap 3 MEQ/L 5 MEQ/L Estimat Glomerular Filtration Rate 47 ML/MIN 50 ML/MIN Orders Procedure Category Date Status Time TLSO ORTHO 01/19/17 Logged Activity Oob With SHAINA 01/19/17 In Process Assistance 14:05 ^ Other Nursing Orders SHAINA 01/19/17 In Process 14:05 Act Partial Throm LAB 01/19/17 Complete Time (Ptt) 15:16 Prothrombin Time / LAB 01/19/17 Complete Inr (Pt) 15:16 Brace Custom Tlso ORTHO 01/19/17 Complete Diet Regular Basic DIET 01/19/17 Complete Dinner Npo After Midnight W/ DIET 01/20/17 Complete Po Meds Breakfast Med Onc Bar MEDPROONC 01/20/17 Complete Trans-No Charge Scd / Albino / Foot Pump SHAINA 01/20/17 Complete 09:37 Npo After Midnight W/ DIET 01/21/17 Complete Po Meds Breakfast Vancomycin Inj MED 01/21/17 Complete (Vancomycin Inj) 06:00 Chlorhexidine 4% Top MED 01/20/17 In Process Soln (Hibiclens 4% 21:00 Consult Radiation CONS 01/20/17 Transmitted Oncology (Hub Use Only)Inp Phy CONS 01/20/17 Transmitted Cons/Ref Midazolam Inj (Versed MED 01/20/17 Complete Inj) 13:04 Fentanyl Inj MED 01/20/17 Complete (Fentanyl Inj) 13:04 Fentanyl Inj MED 01/20/17 Complete (Fentanyl Inj) 13:32 Hydromorphone Pf Inj MED 01/20/17 Complete (Dilaudid Pf Inj) 15:15 Vital Signs (Adult) SHAINA 01/20/17 In Process 15:[address]le Parameters SHAINA 01/20/17 In Process 15:26 ^ Apply Pressure SHAINA 01/20/17 In Process 15:26 ^ Dressings SHAINA 01/20/17 In Process 15:26 Activity Bed Rest SHAINA 01/20/17 In Process 15:26 Iohexol 350 Inj MED 01/20/17 Complete (Omnipaque 350 Inj) 15:40 Aortogram, Abdominal RADINV 01/20/17 Taken F/U Thru Existing Cath RADINV 01/20/17 Taken Transcath Iv Occlusion RADINV 01/20/17 Taken Us Guided Vascular RADINV 01/20/17 Taken Access F/U Thru Existing Cath RADINV 01/20/17 Taken Transcath Iv Occlusion RADINV 01/20/17 Taken Angiogram, Spinal RADINV 01/20/17 Taken Select Diet Npo DIET 01/20/17 Complete Dinner Diet Progression SHAINA 01/20/17 In Process Instructions 17:35 ^ Obtain SHAINA 01/20/17 In Process 17:35 ^ Lab Studies SHAINA 01/20/17 In Process 17:35 ^ Write Order SHAINA 01/20/17 In Process 17:35 Scd / Albino / Foot Pump SHAINA 01/20/17 Complete 17:35 ^ Iv Setup For Or SHAINA 01/20/17 In Process 17:35 IV SHAINA 01/20/17 In Process 17:35 ^ Iv Piggyback For Or SHAINA 01/20/17 In Process 17:35 Bedside Glucose SHAINA 01/20/17 Complete 17:35 ^ Medication SHAINA 01/20/17 In Process Indications 17:35 Type And Screen BBK 01/20/17 In Process 17:35 Red Blood Cells (Rbc) BBK 01/20/17 In Process 17:35 Lactated Ringer's MED 01/20/17 Complete 1000 Ml Inj (Lr 1000 M 18:00 Sodium Chlorid 0.9% MED 01/20/17 Complete 500 Ml Inj (Ns 500 M 18:00 Metoprolol Tartrate MED 01/20/17 Complete (Lopressor) 18:00 Povidone Iod 5% MED 01/20/17 Complete Antisepsis Kit 18:00 Chlorhexidine 2% MED 01/20/17 Complete Cloth (Chlorhexidine 18:00 Electrocardiogram CAV 01/21/17 Resulted Sleeve, Knee SPD 01/21/17 Logged Sequential Albino Pr 04:04 Vancomycin Inj MED 01/21/17 Complete (Vancomycin Inj) 06:50 Acetaminophen 1000 MED 01/21/17 Complete Mg/100 Ml (Ofirmev 10 06:50 Hydromorphone Pf Inj MED 01/21/17 Complete (Dilaudid Pf Inj) 06:51 Thrombin Top Soln MED 01/21/17 Complete (Thrombin Top Soln) 06:51 Cefazolin 2 Gm Premix MED 01/21/17 Complete (Ancef 2 Gm Premix 06:51 Propofol 500 Mg/50 Ml MED 01/21/17 Complete Inj (Diprivan 500 06:51 Bupivacaine-Epi Pf MED 01/21/17 Complete 0.5% Inj (Sensorcaine 06:51 Gelfoam 100 Top MED 01/21/17 Complete (Gelfoam 100 Top) 06:51 Gentamicin Inj MED 01/21/17 Complete (Gentamicin Inj) 06:51 Lactated Ringer's MED 01/21/17 In Process 1000 Ml Inj (Lr 1000 M 07:45 Sodium Chlorid 0.9% MED 01/21/17 In Process 500 Ml Inj (Ns 500 M 07:45 Metoprolol Tartrate MED 01/21/17 In Process (Lopressor) 07:45 Povidone Iod 5% MED 01/21/17 In Process Antisepsis Kit 07:45 Chlorhexidine 2% MED 01/21/17 In Process Cloth (Chlorhexidine 07:45 Insulin Human Regular MED 01/21/17 In Process Inj (Novolin R Inj 07:45 Thrombin Top Soln MED 01/21/17 Complete (Thrombin Top Soln) 08:11 Gelatin Powder Pack MED 01/21/17 Complete (Gelfoam Powder Pack 08:11 Dexamethasone Inj MED 01/21/17 Complete (Decadron Inj) 09:02 Urinary Catheter SHAINA 01/21/17 Complete Management 10:03 Sodium Chlor 0.9% MED 01/21/17 In Process 1000 Ml Inj (Ns 1000 M 12:21 Vital Signs (Adult) SHAINA 01/21/17 Complete 12:21 Neuro Checks SHAINA 01/21/17 Complete 12:21 Intake + Output SHAINA 01/21/17 Complete 12:21 Scd / Albino / Foot Pump SHAINA 01/21/17 Complete 12:21 Change Dressing SHAINA 01/21/17 In Process 12:21 Cefazolin 2 Gm Premix MED 01/21/17 Complete (Ancef 2 Gm Premix 15:00 Cyclobenzaprine MED 01/21/17 In Process (Flexeril) 12:30 Albuterol Neb MED 01/21/17 In Process (Albuterol Neb) 12:30 Basic Metabolic Panel LAB 01/22/17 Complete (Bmp) 06:00 Resp Incentive RSP 01/21/17 Complete Spirometry 12:21 Consult Pt Eval & PT 01/21/17 Logged Treat 12:21 Blood Glucose Goal SHAINA 01/21/17 In Process (Criteria) 12:21 Hypoglycemia 70 Mg/Dl SHAINA 01/21/17 In Process Or < 12:[address]: Priti MERRITT 01/21/17 In Process 12:21 Dextrose 50% In Digna MED 01/21/17 In Process (Vial) Inj (D50w (Vi 12:30 Glucagon Inj MED 01/21/17 In Process (Glucagon Inj) 12:30 ^ Other Nursing Orders SHAINA 01/21/17 In Process 12:21 ^ Other Nursing Orders SHAINA 01/21/17 In Process 12:21 ^ Monitor [facility] 01/21/17 In Process 12:25 ^ Medication Alert [facility] 01/21/17 In Process 12:[address]: Priti MERRITT 01/21/17 In Process 12:[address]: Blood SHAINA 01/21/17 In Process Pressure 12:[address]: SHAINA 01/21/17 In Process Respiratory Rate 12:25 Naloxone Inj (Narcan MED 01/21/17 In Process Inj) 12:30 Diphenhydramine Inj MED 01/21/17 In Process (Benadryl Inj) 12:30 Hydromorphone Academic Interventionist Inj MED 01/21/17 In Process (Dilaudid Academic Interventionist Inj) 12:30 Academic Interventionist Total Dose - MED 01/21/17 In Process Dilaudid 14:00 Acetamin-Hydrocod MED 01/21/17 In Process 325-10 Mg ([place] 10-32 12:30 Acetamin-Hydrocod MED 01/21/17 In Process 325-10 Mg ([place] 10-32 12:30 Diet Regular Basic DIET 01/21/17 Transmitted Lunch Activity Oob With SHAINA 01/21/17 In Process Assistance 12:31 Fluoroscopy,Port Up RADDIAG 01/21/17 Taken To 1 Hr Fluoroscopy,Port Up RADDIAG 01/21/17 Taken To 1 Hr Spine, Lumbar - Ltd RADDIAG 01/21/17 Resulted (Ap & Lat) Chest, Single Ap RADDIAG 01/21/17 Resulted Misc Nursing MED 01/21/17 In Process Information 14:15 Anticoagulant Alert SHAINA 01/21/17 In Process ^ Sling SHAINA 01/21/17 In Process Resp Oxygen Jose Elias C RSP 01/21/17 Logged Titrat 1-4 L Class [facility] 01/[facility] Complete MIN General/Pacu [facility] 01/21/17 Complete Post Anesthesia Oxygen [facility] 01/21/17 Complete Sling Cradle Arm ORTHO 01/22/17 Complete Vital Signs Date Time Temp Pulse Resp B/P (MAP) Pulse Ox O2 Delivery O2 Flow Rate FiO2 01/22/17 08:55 16 01/22/17 08:25 18 01/22/17 08:00 96.8 65 20 121/65 (83) 99 01/22/17 06:00 18 01/22/17 03:40 97.1 82 18 114/56 (75) 94 01/21/17 23:23 97.7 81 18 120/59 (79) 94 01/21/17 21:12 16 01/21/17 19:05 96.7 84 18 135/71 (92) 99 01/21/17 16:00 96.4 86 18 140/76 (97) 99 01/21/17 15:30 97.6 94 16 114/58 (76) 98 Nasal Cannula 2 01/21/17 15:15 96 15 115/60 (78) 96 Nasal Cannula 2 01/21/17 15:00 95 15 117/63 (81) 98 Nasal Cannula 3 01/21/17 14:46 15 01/21/17 14:45 96 15 119/68 (85) 97 Nasal Cannula 3 01/21/17 14:30 98 15 120/69 (86) 100 Nasal Cannula 4 01/21/17 14:15 98.5 99 18 128/66 (86) 99 Nasal Cannula 4 01/21/17 03:41 96.8 74 18 139/74 (95) 96 01/21/17 00:22 96.9 74 18 138/74 (95) 97 01/20/17 20:30 96.8 79 18 154/77 (102) 99 01/20/17 15:40 64 18 148/78 (101) 97 01/20/17 15:25 54 18 151/77 (101) 98 01/20/17 15:10 61 18 143/80 (101) 97 01/20/17 14:55 97.7 58 18 141/77 (98) 98 01/20/17 08:00 97.2 69 18 144/82 (102) 98 01/20/17 04:45 97.0 68 16 122/69 (86) 97 01/20/17 00:30 96.9 74 17 138/67 (90) 99 01/19/17 19:33 98.3 79 17 145/79 (101) 98 01/19/17 16:00 96.8 82 18 139/80 (99) 99 Medical Decision Making Impression and Plan Mr Da Silva is a 71-year-old gentleman with 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 Lumbar spine x-ray show instrumentation in good positioning. Stable spinal alignment. Patient will require radiation to the spinal metastasis after 2 weeks following adequate wound healing Radiation oncology consult as outpatient. Trend BIJAN RCC: Patient will require postoperative spinal radiation. He would also benefit from a staging PET or C/A/P CT with follow-up with medical oncology CV: Hemodynamically stable Pulm: Stable. Encourage incentive spirometry GI: Benign. Aggressive bowel regimen. PPI prophylaxis. : dc/ Tee catheter. Bladder scan/straight catheter q6h prn following Tee removal Integument: Intact ID: Afebrile with no signs of infection DVT prophylaxis: SCD, heparin Pain: Controlled on oral pain medication Disposition: Consider discharge home when pain controlled, BIJAN removed, resumption of bowel function Mateus Skelton MD Jan 22, 2017 12:44
[2017-01-22] MEDS: ACETAMINOPHEN/HYDROcodone 325 MG/10 MG TAB PO PRN ×2 (17:34→21:30)
[2017-01-22] MEDS: CHLORHEXIDINE GLUCONATE 4% SOLN 120 ML BTL TOP SCH (21:00)
[2017-01-22] MEDS: SENNOSIDES 8.6 MG TAB PO PRN (21:29)
[2017-01-22] MEDS: CYCLOBENZAPRINE HCL 10 MG TAB PO PRN (21:29)
[2017-01-22] MEDS: LISINOPRIL 10 MG TAB PO SCH (21:29)
[2017-01-23] VITALS (7 sets, daily range): BP systolic 117–127; BP diastolic 55–94; PULSE 70–87; RESP 17–18; TEMP 96.7–98.9; O2SAT 94–98
[2017-01-23] MEDS: ACETAMINOPHEN/HYDROcodone 325 MG/10 MG TAB PO PRN ×5 (01:24→23:43)
[2017-01-23] MEDS: SODIUM CHLOR 0.9% 1000 ML INJ 1,000 ML IV SCH ×2 (04:21→14:21)
[2017-01-23] MEDS: PCA - TOTAL MG DILAUDID DELIVERED PER SHIFT SCH ×2 (05:15→11:38)
[2017-01-23] MEDS: SODIUM CHLORIDE 0.9% FLUSH 10 ML FLUSH IV FLUSH SCH ×2 (09:00→21:01)
[2017-01-23] MEDS: FINASTERIDE 5 MG TAB PO SCH (09:19)
[2017-01-23] MEDS: PANTOPRAZOLE SOD 40 MG DELAYED RELEASE TAB PO SCH (09:19)
[2017-01-23] MEDS: SENNOSIDES 8.6 MG TAB PO PRN (09:35)
--- NOTE | 2017-01-23 10:43 | HHI.PR ---
Subjective Remarks post op day two up in chair with brace pain controlled will consult oj for eval Objective Vital Signs Date Time Temp Pulse Resp B/P (MAP) Pulse Ox O2 Delivery O2 Flow Rate FiO2 01/23/17 08:00 98.1 73 18 125/94 (104) 95 01/23/17 07:45 01/23/17 00:00 98.0 70 17 117/55 (75) 96 01/22/17 21:57 95 01/22/17 20:00 99.0 87 17 123/56 (78) 95 01/22/17 16:00 99.6 80 20 140/69 (92) 94 01/22/17 12:54 18 01/22/17 12:00 98.6 74 20 129/66 (87) 94 01/22/17 12:00 94 21 I/O 01/22/17 01/22/17 01/22/17 01/23/17 01/23/17 01/23/17 07:00 15:00 23:00 07:00 15:00 23:00 Intake Total 480 ml 1720 ml 1424 ml 0 ml Output Total 690 ml 930 ml 760 ml Balance -210 ml 1720 ml 494 ml -760 ml 0 ml Intake Oral 480 ml 720 ml IV Total 1000 ml 1424 ml 0 ml Output Urine Total 650 ml 900 ml 750 ml Drainage Total 40 ml 30 ml 10 ml # Bowel Movements 0 0 Result Diagram: 01/22/17 0325 01/22/17 0325 Procedures spm lumbar stabilization with screw fixation after arterial embolization Objective Remarks GENERAL: Well-nourished, well-developed patient. SKIN: Warm and dry. HEAD: Normocephalic. EYES: No scleral icterus. No injection or drainage. NECK: Supple, trachea midline. No JVD or lymphadenopathy. CARDIOVASCULAR: Regular rate and rhythm without murmurs, gallops, or rubs. RESPIRATORY: Breath sounds equal bilaterally. No accessory muscle use. GASTROINTESTINAL: Abdomen soft, non-tender, nondistended. EXTREMITIES: No cyanosis, or edema.pain and paresthesia lower extremities remain not increased NEUROLOGICAL: Awake, alert, and oriented x 3. Non-focal. Medications and IVs Inpatient Medications Acetaminophen (Tylenol) 650 mg Q4H PRN PO TEMP > 100.4 Last administered on t 21:12; Start 01/18/17 at 15:00 Acetaminophen/ Hydrocodone Bitart ([place] 10-325 Mg) 2 tab Q4H PRN PO PAIN SCALE 6 TO 10 Last administered on 01/23/17 09:20; Start 01/21/17 at 12:30 Albuterol Sulfate (Albuterol Neb) 2.5 mg Q4HR NEB PRN INH WHEEZING; Start 01/21 at 12:30 Alprazolam (Xanax) 0.25 mg Q8H PRN PO ANXIETY Last administered on 01/20/17 20 :57; Start 01/19/17 at 09:30 Bisacodyl (Dulcolax Supp) 10 mg DAILY PRN RECTAL SEVERE CONSITIPATION; Start 01/18/17 at 15:00 Cefazolin Sodium/ Dextrose 50 ml @ 100 mls/hr Q8H IV Last administered on 01/22 06:30; Start 01/21/17 at 15:00; Stop 01/22/17 at 07:29; Status DC Chlorhexidine Gluconate (Chlorhexidine 2% Cloth) 3 pack ED EDUCATIONAL AIDE PRN TOPICAL SEE LABEL COMMENTS; Start 01/21/17 at 07:45; Stop 01/24/17 at 07:44 Chlorhexidine Gluconate (Hibiclens 4% Top Soln) 1 applic HS TOP ; Start at 21:00; Stop 01/22/17 at 21:01; Status DC Cyclobenzaprine HCl (Flexeril) 10 mg Q8H PRN PO MUSCLE SPASM Last administered on 01/22/17 21:29; Start 01/21/17 at 12:30 Dextrose (D50w (Vial) Inj) 50 ml UNSCH PRN IV PUSH HYPOGLYCEMIA-SEE COMMENTS; Start 01/21/17 at 12:30 Diphenhydramine HCl (Benadryl Inj) 25 mg Q6H PRN IV PUSH ITCHING; Start at 12:30 Finasteride (Proscar) 5 mg DAILY PO Last administered on 01/23/17 09:19; Start 01/19/17 at 09:00 Glucagon (Glucagon Inj) 1 mg UNSCH PRN OTHER HYPOGLYCEMIA-SEE COMMENTS; Start 01/21/17 at 12:30 Hydromorphone HCl (Dilaudid SAIL MAKER Inj) 6 mg UNSCH IV Last administered on 08:25; Start 01/21/17 at 12:30 Hydromorphone HCl (Dilaudid Pf Inj) 1 mg Q30M PRN IV PAIN GREATER THAN 5 Last administered on 01/20/17 16:35; Start 01/20/17 at 15:15; Stop 01/20/17 at 21:00 ; Status DC Insulin Human Regular (NovoLIN R INJ) See Protocol Table ... ED EDUCATIONAL AIDE PRN SQ SEE PROTOCOL TABLE; Start 01/21/17 at 07:45; Stop 01/24/17 at 07:44 Lactated Ringer's 1,000 ml @ 30 mls/hr Q24H PRN IV SEE LABEL COMMENTS; Start 01/21/17 at 07:45; Stop 01/24/17 at 07:44 Lactulose (Lactulose Liq) 30 ml DAILY PRN PO SEVERE CONSITIPATION; Start at 15:00 Lisinopril (Prinivil) 10 mg HS PO Last administered on 01/22/17 21:29; Start 01/18/17 at 21:00 Magnesium Hydroxide (Milk Of Magnesia Liq) 30 ml Q12HR PRN PO Mild constipation ; Start 01/18/17 at 21:00 Metoprolol Tartrate (Lopressor) 25 mg ED EDUCATIONAL AIDE PRN PO SEE LABEL COMMENTS; Start 01/21/17 at 07:45; Stop 01/24/17 at 07:44 Miscellaneous Information ALL NURSING DEPARTME... UNSCH PRN .XX SEE LABEL COMMENTS; Start 01/21/17 at 14:15; Stop 01/22/17 at 14:22; Status DC Morphine Sulfate (Morphine Inj) 4 mg ONCE ONCE IV PUSH Last administered on 10:57; Start 01/18/17 at 10:45; Stop 01/18/17 at 10:46; Status DC Naloxone HCl (Narcan Inj) 0.4 mg UNSCH PRN IV PUSH RESPIRATORY RATE LESS THAN 10; Start 01/21/17 at 12:30 Ondansetron HCl (Zofran Inj) 4 mg Q6H PRN IVP NAUSEA OR VOMITING; Start at 15:00 Pantoprazole Sodium (Protonix) 40 mg DAILY PO Last administered on 01/23/17 09:19; Start 01/19/17 at 09:00 SAIL MAKER Dosage Infused (Pha) 1 Q8HR .XX Last administered on 01/22/17 12:54; Start 01/21/17 at 14:00 Potassium Chloride/Dextrose/ Sod Cl 1,000 ml @ 83 mls/hr Q12H3M IV Last administered on 01/18/17 15:03; Start 01/18/17 at 14:34; Stop 01/21/17 at 15:07 ; Status DC Povidone Iodine (Betadine 5% Antisepsis Kit) 1 applic ED EDUCATIONAL AIDE PRN EACH NARE SEE LABEL COMMENTS; Start 01/21/17 at 07:45; Stop 01/24/17 at 07:44 Sennosides (Senokot) 17.2 mg Q12HR PRN PO Moderate constipation Last administered on 01/23/17 09:35; Start 01/18/17 at 21:00 Sodium Chloride 1,000 ml @ 100 mls/hr Q10H IV Last administered on 01/22/17 10:03; Start 01/21/17 at 12:21 Sodium Chloride (NS Flush) 2 ml BID IV FLUSH Last administered on 01/23/17 09 :00; Start 01/18/17 at 21:00 Vancomycin HCl 1000 mg/Sodium Chloride 250 ml @ 250 mls/hr ONCE ONCE IV ; Start 01/21/17 at 06:00; Stop 01/21/17 at 06:59; Status DC Zolpidem Tartrate (Ambien) 5 mg HS PRN PO INSOMNIA; Start 01/18/17 at 21:00 Assessment and Plan Problem List: (1) Compression fracture of L3 lumbar vertebra ICD Codes: S32.030A - Wedge compression fracture of third lumbar vertebra, initial encounter for closed fracture Status: Acute (2) Epidural mass ICD Codes: G96.19 - Other disorders of meninges, not elsewhere classified Status: Acute Assessment and Plan POD2 progressing well ck lab am Problem Qualifiers (1) Compression fracture of L3 lumbar vertebra: Qualified Codes: S32.030A - Wedge compression fracture of third lumbar vertebra , initial encounter for closed fracture Tushar Ty DO Jan 23, 2017 10:43
--- NOTE | 2017-01-23 13:41 | HHI.NSPN ---
History Interval History Mr Da Silva is a 71-year-old gentleman who presents with intractable back pain. On MRI he was noted to have an enhancing lesion involving the T3 vertebral body with epidural tumor extension and compression of the neural elements. 01/21 status post spinal decompression at L3 with internal stabilization L2-L4 01/22 patient endorses moderate back pain. He was able to stand with minimal difficulties. 01/23 no acute events overnight. Patient endorses persistent low back pain. Exam Results Vital Signs Date Time Temp Pulse Resp B/P (MAP) Pulse Ox O2 Delivery O2 Flow Rate FiO2 01/23/17 12:00 97.0 75 18 126/71 (89) 95 01/23/17 10:48 21 01/21/17 15:30 Nasal Cannula 2 Intake and Output 01/23/17 01/23/17 01/24/17 08:00 16:00 00:00 Intake Total 0 ml Output Total 260 ml Balance -260 ml Physical Examination Gen: Patient is awake and alert. He is in no acute distress. HEENT: normocephalic and atraumatic Neck: Supple, trachea is midline. CV: Regular rate and rhythm Pulm: CTA bilaterally Abd: Soft, nontender, non-distended, +bs Ext: No edema Integument: Dressing in place. BIJAN show serosanguineous output Neuro: Alert and oriented 3 Speech is clear, appropriate, and non-aphasic CN II-XII: Grossly intact Motor: 5/5 to all muscle groups tested. No focal weakness. Sensory: Intact to light touch throughout. DTR: 2+ patella. No clonus at the ankles. Lab, Micro, Other Results Allergies Coded Allergies Type Severity Reaction Last Updated Verified No Known Allergies Allergy Mild 01/21/17 Yes Recent Impressions Lumbar Spine X-Ray 01/21/17 0000 Signed Impressions: Service Date/Time: Saturday, January 21, 2017 09:09 - CONCLUSION: 1. Bilateral transpedicular fixation from L2-L4 with no significant listhesis. 2. Embolization type coils to the left of the L3-4 disc interspace. Campbell Thurston MD Chest X-Ray 01/21/17 0000 Signed Impressions: Service Date/Time: Saturday, January 21, 2017 14:29 - CONCLUSION: 1. Right IJ line distal tip in the SVC. No pneumothorax is present. 2. Mild atelectasis versus consolidation at the lung bases. Elias Tyler MD 01/21/17 01/21/17 01/22/17 01/22/17 01/23/17 01/23/17 06:00 18:00 06:00 18:00 06:00 18:00 Intake Total 960 ml 2100 ml 360 ml 2200 ml 1424 ml 0 ml Output Total 840 ml 1410 ml 1590 ml 790 ml Balance 960 ml 1260 ml -1050 ml 610 ml 634 ml 0 ml Intake Oral 960 ml 360 ml 1200 ml IV Total 100 ml 1000 ml 1424 ml 0 ml Other 2000 ml Output Urine Total 600 ml 1350 ml 1550 ml 750 ml Drainage Total 40 ml 60 ml 40 ml 40 ml Estimated Blood Loss 200 ml # Voids 6 # Bowel Movements 0 0 0 Laboratory Tests Test 01/22/17 03:25 White Blood Count 8.5 TH/MM3 Red Blood Count 3.32 MIL/MM3 Hemoglobin 10.6 GM/DL Hematocrit 29.9 % Mean Corpuscular Volume 90.2 FL Mean Corpuscular Hemoglobin 31.9 PG Mean Corpuscular Hemoglobin Concent 35.4 % Red Cell Distribution Width 12.4 % Platelet Count 191 TH/MM3 Mean Platelet Volume 7.5 FL Neutrophils (%) (Auto) 79.5 % Lymphocytes (%) (Auto) 9.1 % Monocytes (%) (Auto) 10.7 % Eosinophils (%) (Auto) 0.4 % Basophils (%) (Auto) 0.3 % Neutrophils # (Auto) 6.7 TH/MM3 Lymphocytes # (Auto) 0.8 TH/MM3 Monocytes # (Auto) 0.9 TH/MM3 Eosinophils # (Auto) 0.0 TH/MM3 Basophils # (Auto) 0.0 TH/MM3 CBC Comment DIFF FINAL Differential Comment Blood Urea Nitrogen 21 MG/DL Creatinine 1.41 MG/DL Random Glucose 115 MG/DL Calcium Level 9.0 MG/DL Sodium Level 138 MEQ/L Potassium Level 4.2 MEQ/L Chloride Level 102 MEQ/L Carbon Dioxide Level 30.7 MEQ/L Anion Gap 5 MEQ/L Estimat Glomerular Filtration Rate 50 ML/MIN Orders Procedure Category Date Status Time Hydromorphone Pf Inj MED 01/20/17 Complete (Dilaudid Pf Inj) 15:15 Vital Signs (Adult) SHAINA 01/20/17 Complete 15:26 Notify Parameters SHAINA 01/20/17 In Process 15:26 ^ Apply Pressure SHAINA 01/20/17 In Process 15:26 ^ Dressings SHAINA 01/20/17 In Process 15:26 Activity Bed Rest SHAINA 01/20/17 In Process 15:26 Iohexol 350 Inj MED 01/20/17 Complete (Omnipaque 350 Inj) 15:40 Aortogram, Abdominal RADINV 01/20/17 Taken F/U Thru Existing Cath RADINV 01/20/17 Taken Transcath Iv Occlusion RADINV 01/20/17 Taken Us Guided Vascular RADINV 01/20/17 Taken Access F/U Thru Existing Cath RADINV 01/20/17 Taken Transcath Iv Occlusion RADINV 01/20/17 Taken Angiogram, Spinal RADINV 01/20/17 Taken Select Diet Npo DIET 01/20/17 Complete Dinner Diet Progression SHAINA 01/20/17 In Process Instructions 17:35 ^ Obtain SHAINA 01/20/17 In Process 17:35 ^ Lab Studies SHAINA 01/20/17 In Process 17:35 ^ Write Order SHAINA 01/20/17 In Process 17:35 Scd / Albino / Foot Pump SHAINA 01/20/17 Complete 17:35 ^ Iv Setup For Or SHAINA 01/20/17 In Process 17:35 IV SHAINA 01/20/17 In Process 17:35 ^ Iv Piggyback For Or SHAINA 01/20/17 In Process 17:35 Bedside Glucose SHAINA 01/20/17 Complete 17:35 ^ Medication SHAINA 01/20/17 In Process Indications 17:35 Type And Screen BBK 01/20/17 Complete 17:35 Lactated Ringer's MED 01/20/17 Complete 1000 Ml Inj (Lr 1000 M 18:00 Sodium Chlorid 0.9% MED 01/20/17 Complete 500 Ml Inj (Ns 500 M 18:00 Metoprolol Tartrate MED 01/20/17 Complete (Lopressor) 18:00 Povidone Iod 5% MED 01/20/17 Complete Antisepsis Kit 18:00 Chlorhexidine 2% MED 01/20/17 Complete Cloth (Chlorhexidine 18:00 Electrocardiogram CAV 01/21/17 Resulted Sleeve, Knee SPD 01/21/17 Logged Sequential Albino Pr 04:04 Vancomycin Inj MED 01/21/17 Complete (Vancomycin Inj) 06:50 Acetaminophen 1000 MED 01/21/17 Complete Mg/100 Ml (Ofirmev 10 06:50 Hydromorphone Pf Inj MED 01/21/17 Complete (Dilaudid Pf Inj) 06:51 Thrombin Top Soln MED 01/21/17 Complete (Thrombin Top Soln) 06:51 Cefazolin 2 Gm Premix MED 01/21/17 Complete (Ancef 2 Gm Premix 06:51 Propofol 500 Mg/50 Ml MED 01/21/17 Complete Inj (Diprivan 500 06:51 Bupivacaine-Epi Pf MED 01/21/17 Complete 0.5% Inj (Sensorcaine 06:51 Gelfoam 100 Top MED 01/21/17 Complete (Gelfoam 100 Top) 06:51 Gentamicin Inj MED 01/21/17 Complete (Gentamicin Inj) 06:51 Lactated Ringer's MED 01/21/17 In Process 1000 Ml Inj (Lr 1000 M 07:45 Sodium Chlorid 0.9% MED 01/21/17 In Process 500 Ml Inj (Ns 500 M 07:45 Metoprolol Tartrate MED 01/21/17 In Process (Lopressor) 07:45 Povidone Iod 5% MED 01/21/17 In Process Antisepsis Kit 07:45 Chlorhexidine 2% MED 01/21/17 In Process Cloth (Chlorhexidine 07:45 Insulin Human Regular MED 01/21/17 In Process Inj (Novolin R Inj 07:45 Thrombin Top Soln MED 01/21/17 Complete (Thrombin Top Soln) 08:11 Gelatin Powder Pack MED 01/21/17 Complete (Gelfoam Powder Pack 08:11 Dexamethasone Inj MED 01/21/17 Complete (Decadron Inj) 09:02 Urinary Catheter SHAINA 01/21/17 Complete Management 10:03 Sodium Chlor 0.9% MED 01/21/17 In Process 1000 Ml Inj (Ns 1000 M 12:21 Vital Signs (Adult) SHAINA 01/21/17 Complete 12:21 Neuro Checks SHAINA 01/21/17 Complete 12:21 Intake + Output SHAINA 01/21/17 Complete 12:21 Scd / Albino / Foot Pump SHAINA 12/8/17 Complete 12:21 Change Dressing SHAINA 01/21/17 In Process 12:21 Cefazolin 2 Gm Premix MED 01/21/17 Complete (Ancef 2 Gm Premix 15:00 Cyclobenzaprine MED 01/21/17 In Process (Flexeril) 12:30 Albuterol Neb MED 01/21/17 In Process (Albuterol Neb) 12:30 Basic Metabolic Panel LAB 01/22/17 Complete (Bmp) 06:00 Resp Incentive RSP 01/21/17 Complete Spirometry 12:21 Consult Pt Eval & PT 01/21/17 Logged Treat 12:21 Blood Glucose Goal SHAINA 01/21/17 In Process (Criteria) 12:21 Hypoglycemia 70 Mg/Dl SHAINA 01/21/17 In Process Or < 12:[address]: Other SHAINA 01/21/17 In Process 12:21 Dextrose 50% In [place]ing[place] MED 01/21/17 In Process (Vial) Inj (D50w (Vi 12:30 Glucagon Inj MED 01/21/17 In Process (Glucagon Inj) 12:30 ^ Other Nursing Orders SHAINA 01/21/17 In Process 12:21 ^ Other Nursing Orders SHAINA 01/21/17 In Process 12:21 ^ Monitor [facility] 01/21/17 In Process 12:25 ^ Medication Alert [facility] 01/21/17 In Process 12:[address]: Other SHAINA 01/21/17 In Process 12:[address]: Blood SHAINA 01/21/17 In Process Pressure 12:[address]: SHAINA 01/21/17 In Process Respiratory Rate 12:25 Naloxone Inj (Narcan MED 01/21/17 In Process Inj) 12:30 Diphenhydramine Inj MED 01/21/17 In Process (Benadryl Inj) 12:30 Hydromorphone [facility] Inj MED 01/21/17 In Process (Dilaudid Super[facility] Inj) 12:30 Supervisor [facility]ure Department Total Dose - MED 01/21/17 In Process Dilaudid 14:00 Acetamin-Hydrocod MED 01/21/17 In Process 325-10 Mg ([place] 10-32 12:30 Acetamin-Hydrocod MED 01/21/17 In Process 325-10 Mg ([place] 10-32 12:30 Diet Regular Basic DIET 01/21/17 Transmitted Lunch Activity Oob With SHAINA 01/21/17 In Process Assistance 12:31 Fluoroscopy,Port Up RADDIAG 01/21/17 Taken To 1 Hr Fluoroscopy,Port Up RADDIAG 01/21/17 Taken To 1 Hr Spine, Lumbar - Ltd RADDIAG 01/21/17 Resulted (Ap & Lat) Chest, Single Ap RADDIAG 01/21/17 Resulted Misc Nursing MED 01/21/17 Complete Information 14:15 Anticoagulant Alert SHAINA 01/21/17 In Process ^ Sling SHAINA 01/21/17 In Process Resp Oxygen Jose Elias C RSP 01/21/17 Logged Titrat 1-4 L Class Iv Pacu Ea 30 [facility] 01/21/17 Complete MIN General/Pacu [facility] 01/21/17 Complete Post Anesthesia Oxygen [facility] 01/21/17 Complete Sling Cradle Arm ORTHO 01/22/17 Complete ^ Remove Supervisor Denture Department SHAINA 01/22/17 In Process 13:36 Remove Urinary SHAINA 01/22/17 In Process Catheter 13:36 Consult Rehab Nurse CONS 01/23/17 Transmitted Liason Complete Blood Count LAB 01/24/17 Verified With Diff 06:00 Basic Metabolic Panel LAB 01/24/17 Verified (Bmp) 06:00 Vital Signs Date Time Temp Pulse Resp B/P (MAP) Pulse Ox O2 Delivery O2 Flow Rate FiO2 01/23/17 12:00 97.0 75 18 126/71 (89) 95 01/23/17 10:48 21 01/23/17 08:00 98.1 73 18 125/94 (104) 95 01/23/17 07:45 01/23/17 00:00 98.0 70 17 117/55 (75) 96 01/22/17 21:57 95 01/22/17 20:00 99.0 87 17 123/56 (78) 95 01/22/17 16:00 99.6 80 20 140/69 (92) 94 01/22/17 12:54 18 01/22/17 12:00 98.6 74 20 129/66 (87) 94 01/22/17 12:00 94 21 01/22/17 08:55 16 01/22/17 08:25 18 01/22/17 08:00 96.8 65 20 121/65 (83) 99 01/22/17 06:00 18 01/22/17 03:40 97.1 82 18 114/56 (75) 94 01/21/17 23:23 97.7 81 18 120/59 (79) 94 01/21/17 21:12 16 01/21/17 19:05 96.7 84 18 135/71 (92) 99 01/21/17 16:00 96.4 86 18 140/76 (97) 99 01/21/17 15:30 97.6 94 16 114/58 (76) 98 Nasal Cannula 2 01/21/17 15:15 96 15 115/60 (78) 96 Nasal Cannula 2 01/21/17 15:00 95 15 117/63 (81) 98 Nasal Cannula 3 01/21/17 14:46 15 01/21/17 14:45 96 15 119/68 (85) 97 Nasal Cannula 3 01/21/17 14:30 98 15 120/69 (86) 100 Nasal Cannula 4 01/21/17 14:15 98.5 99 18 128/66 (86) 99 Nasal Cannula 4 01/21/17 03:41 96.8 74 18 139/74 (95) 96 01/21/17 00:22 96.9 74 18 138/74 (95) 97 01/20/17 20:30 96.8 79 18 154/77 (102) 99 01/20/17 15:40 64 18 148/78 (101) 97 01/20/17 15:25 54 18 151/77 (101) 98 01/20/17 15:10 61 18 143/80 (101) 97 01/20/17 14:55 97.7 58 18 141/77 (98) 98 Medical Decision Making Impression and Plan Mr Da Silva is a 71-year-old gentleman with 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 Lumbar spine x-ray show instrumentation in good positioning. Stable spinal alignment. 01/22 Patient will require radiation to the spinal metastasis after 2 weeks following adequate wound healing Radiation oncology consult as outpatient. Trend BIJAN 12/ neurologically intact. BIJAN removed on POD2 RCC: Patient will require postoperative spinal radiation. He would also benefit from a staging PET or C/A/P CT with follow-up with medical oncology CV: Hemodynamically stable Pulm: Stable. Encourage incentive spirometry GI: Benign. Aggressive bowel regimen. PPI prophylaxis. : dc/ Tee catheter. Bladder scan/straight catheter q6h prn following Tee removal 01/23 good urine output Integument: Intact ID: Afebrile with no signs of infection DVT prophylaxis: SCD, heparin Pain: Controlled on oral pain medication Disposition: Consider discharge home when pain controlled, BIJAN removed, resumption of bowel function Mateus Skelton MD Jan 23, 2017 13:41
[2017-01-23] MEDS: CYCLOBENZAPRINE HCL 10 MG TAB PO PRN (18:14)
[2017-01-23] MEDS: HEPARIN SODIUM - SQ 10,000 UNITS/ML VIAL SQ SCH (18:15)
[2017-01-23] MEDS: LISINOPRIL 10 MG TAB PO SCH (20:58)
[2017-01-24] MEDS: SODIUM CHLOR 0.9% 1000 ML INJ 1,000 ML IV SCH ×3 (00:21→19:21)
[2017-01-24] MEDS: HEPARIN SODIUM - SQ 10,000 UNITS/ML VIAL SQ SCH ×2 (05:35→18:55)
[2017-01-24] MEDS: ACETAMINOPHEN/HYDROcodone 325 MG/10 MG TAB PO PRN ×2 (05:36→09:50)
[2017-01-24 07:05] LABS: AUTOMATED NEUTROPHIL # 8.9 TH/MM3 (1.8-7.7); BASOPHIL % 0.3 % (0.0-2.0); EOSINOPHIL # 0.1 TH/MM3 (0-0.4); EOSINOPHIL % 0.6 % (0.0-4.0); HEMO FLAGS DIFF FINAL; LYMPH % 5.2 % (9.0-44.0); LYMPHOCYTE # 0.5 TH/MM3 (1.0-4.8); MEAN CELL VOLUME 90.2 FL (80.0-100.0); MEAN CORPUSCULAR HEMOGLOBIN 30.9 PG (27.0-34.0); MEAN CORPUSCULAR HGB CONC 34.2 % (32.0-36.0); NEUT % 83.9 % (16.0-70.0); PLATELET COUNT 191 TH/MM3 (150-450); RED BLOOD COUNT 3.21 MIL/MM3 (4.50-5.90); RED CELL DISTRIBUTION WIDTH 12.4 % (11.6-17.2); WHITE BLOOD COUNT 10.6 TH/MM3 (4.0-11.0)
[2017-01-24 07:28] LABS: BICARBONATE 29.5 MEQ/L (21.0-32.0); POTASSIUM 3.9 MEQ/L (3.5-5.1)
[2017-01-24 08:00] VITALS: BP 126/51; PULSE 94; RESP 18; TEMP 97.9; O2SAT 95
[2017-01-24] MEDS: SODIUM CHLORIDE 0.9% FLUSH 10 ML FLUSH IV FLUSH SCH ×2 (09:44→20:53)
[2017-01-24] MEDS: FINASTERIDE 5 MG TAB PO SCH (09:44)
[2017-01-24] MEDS: PANTOPRAZOLE SOD 40 MG DELAYED RELEASE TAB PO SCH (09:44)
[2017-01-24] MEDS ORDERED: MORPHINE SULFATE 4 MG/ML INJ IV PUSH PRN (10:30)
[2017-01-24] MEDS ORDERED: oxyCODONE/ACETAMINOPHEN 10 MG/325 MG TAB PO PRN ×2 (10:30)
--- NOTE | 2017-01-24 11:56 | HHI.NSPN ---
(Zara Edmondson) Note Status Status: Progress Note (Zara Edmondson) Interval History Interval History This is a 71 year old male with right renal cell carcinoma s/p right nephrectomy 3 weeks ago at [facility] in [place]. he was admitted with severe, intractable lower back pain that became worst yesterday. Pain is sharp , worst with movement and radiating across left and right lower back. Pain level of up to 8-9/10. Only relieved when lying down. Pt also with bilateral lower extremity numbness more on bilateral lateral aspect of thighs and up to above both knees. Said he has had numbness before but never constant like the last 3-4 days. He Denies any trauma, fever,focal weakness, chest pain, sob, n/v , abdominal pain. Lumbar on spine with pathologic-appearing compression fracture of L3 with posterior expansion of the vertebral body wall, associated enhancing epidural soft tissue mass which extends into both neural foramina and severe central spinal stenosis.Considering patient's history of renal cell carcinoma this likely represents metastatic disease. Neurosurgical consultation was requested 01/20: awaiting angiography with embolization of L3 tumor. to OR tomorrow. no new complaints 01/21 status post spinal decompression at L3 with internal stabilization L2-L4 01/22 patient endorses moderate back pain. He was able to stand with minimal difficulties. 01/23 no acute events overnight. Patient endorses persistent low back pain. 01/24: no lumbar pain when laying still, pain increases with movement. off [employer], current medications not providing enough pain control, reports lower extremity dysesthesias improving (Zara Edmondson) Labs, Micro, & Vital Signs Results Date Time Temp Pulse Resp B/P (MAP) Pulse Ox O2 Delivery O2 Flow Rate FiO2 01/24/17 08:00 97.9 94 18 126/51 (76) 95 01/23/17 23:45 96.7 87 18 127/67 (87) 98 01/23/17 19:48 98.9 85 18 120/60 (80) 96 01/23/17 19:41 94 21 01/23/17 16:53 01/23/17 16:00 98.6 80 18 117/61 (79) 96 01/23/17 12:00 97.0 75 18 126/71 (89) 95 Constitutional Vital Signs Date Time Temp Pulse Resp B/P (MAP) Pulse Ox O2 Delivery O2 Flow Rate FiO2 01/24/17 08:00 97.9 94 18 126/51 (76) 95 01/23/17 23:45 96.7 87 18 127/67 (87) 98 01/23/17 19:48 98.9 85 18 120/60 (80) 96 01/23/17 19:41 94 21 01/23/17 16:53 01/23/17 16:00 98.6 80 18 117/61 (79) 96 01/23/17 12:00 97.0 75 18 126/71 (89) 95 (Zara Edmondson) Physical Exam awake and alert. He is in no acute distress. Speech is clear, appropriate, and non-aphasic Neck: soft, supple CN II-XII: Grossly intact Motor: 5/5 to all muscle groups tested. No focal weakness. Sensory: Intact to light touch throughout. Integument: Dressing in place, clean and dry. (Zara Edmondson) Medications Current Medications Current Medications Medications (Trade) Dose Ordered Sig/Brianna Route PRN Reason Start Time Stop Time Status Last Admin Dose Admin Sodium Chloride (NS Flush) 2 ml UNSCH PRN IV FLUSH FLUSH AFTER USING IV ACCESS 01/18/17 14:45 Sodium Chloride (NS Flush) 2 ml BID IV FLUSH 01/18/17 21:00 01/24/17 09:44 Acetaminophen (Tylenol) 650 mg Q4H PRN PO TEMP > 100.4 01/18/17 15:00 01/18/17 21:12 Ondansetron HCl (Zofran Inj) 4 mg Q6H PRN IVP NAUSEA OR VOMITING 01/18/17 15:00 Zolpidem Tartrate (Ambien) 5 mg HS PRN PO INSOMNIA 01/18/17 21:00 Naloxone HCl (Narcan Inj) 0.4 mg UNSCH PRN IV PUSH SEE LABEL COMMENTS 01/18/17 14:45 Magnesium Hydroxide (Milk Of Magnesia Liq) 30 ml Q12HR PRN PO Mild constipation 01/18/17 21:00 Sennosides (Senokot) 17.2 mg Q12HR PRN PO Moderate constipation 01/18/17 21:00 01/23/17 09:35 Bisacodyl (Dulcolax Supp) 10 mg DAILY PRN RECTAL SEVERE CONSITIPATION 01/18/17 15:00 Lactulose (Lactulose Liq) 30 ml DAILY PRN PO SEVERE CONSITIPATION 01/18/17 15:00 Finasteride (Proscar) 5 mg DAILY PO 01/19/17 09:00 01/24/17 09:44 Lisinopril (Prinivil) 10 mg HS PO 01/18/17 21:00 01/23/17 20:58 Pantoprazole Sodium (Protonix) 40 mg DAILY PO 01/19/17 09:00 01/24/17 09:44 Alprazolam (Xanax) 0.25 mg Q8H PRN PO ANXIETY 01/19/17 09:30 01/20/17 20:57 Sodium Chloride 1,000 ml @ 100 mls/hr Q10H IV 01/21/17 12:21 01/22/17 10:03 Cyclobenzaprine HCl (Flexeril) 10 mg Q8H PRN PO MUSCLE SPASM 01/21/17 12:30 01/23/17 18:14 Albuterol Sulfate (Albuterol Neb) 2.5 mg Q4HR NEB PRN INH WHEEZING 01/21/17 12:30 Dextrose (D50w (Vial) Inj) 50 ml UNSCH PRN IV PUSH HYPOGLYCEMIA-SEE COMMENTS 01/21/17 12:30 Glucagon (Glucagon Inj) 1 mg UNSCH PRN OTHER HYPOGLYCEMIA-SEE COMMENTS 01/21/17 12:30 Heparin Sodium (Porcine) (Heparin Inj) 5,000 units Q12H SQ 01/23/17 18:00 01/24/17 05:35 Oxycodone/ Acetaminophen (Percocet 10-325 Mg) 1 tab Q4H PRN PO PAIN SCALE 1 TO 5 01/24/17 10:30 Oxycodone/ Acetaminophen (Percocet 10-325 Mg) 2 tab Q4H PRN PO PAIN SCALE 6 TO 10 01/24/17 10:30 Morphine Sulfate (Morphine Inj) 2 mg Q2HR PRN IV PUSH breakthrough pain 01/24/17 10:30 Gabapentin (Neurontin) 300 mg TID PO 01/24/17 13:00 (Zara Edmondson) Medical Decision Making MDM Remarks 71 y/o male with suspected metastatic renal cell CA to spine, with pathological L3 fracture with epidural extension and severe stenosis/spinal cord compression s/p spinal decompression at L3 with internal stabilization L2-L4 on 01/21/17 Renal Cell CA, s/p nephrectomy at [facility] (Zara Edmondson) Plan Plan Remarks switch pain medications to Percocet prn, with IV morphine for breakthrough start Neurontin 300 tid cont therapy, increase mobilization OOB with TLSO rehab efforts (Zara Edmondson) Attending Statement The exam, history, and the medical decision-making described in the above note were completed with the assistance of the mid-level provider. I reviewed and agree with the findings presented. I attest that I had a [id number] encounter with the patient on the same day, and personally performed and documented my assessment and findings in the medical record. (Monroe Ray MD) Zara Edmondson Jan 24, 2017 11:55 Monroe Ray MD Jan 25, 2017 21:20
[2017-01-24 12:00] VITALS: BP 117/65; PULSE 78; RESP 18; TEMP 97.6; O2SAT 96
--- NOTE | 2017-01-24 13:08 | HHI.PR ---
Subjective Remarks Patient C/O intense back pain S/P surgery. Oncology is following and eval for rehab therapy in progress. Objective Vital Signs Date Time Temp Pulse Resp B/P (MAP) Pulse Ox O2 Delivery O2 Flow Rate FiO2 01/24/17 12:00 97.6 78 18 117/65 (82) 96 01/24/17 08:00 97.9 94 18 126/51 (76) 95 01/23/17 23:45 96.7 87 18 127/67 (87) 98 01/23/17 19:48 98.9 85 18 120/60 (80) 96 01/23/17 19:41 94 21 01/23/17 16:53 01/23/17 16:00 98.6 80 18 117/61 (79) 96 I/O 01/23/17 01/23/17 01/23/17 01/24/17 01/24/17 01/24/17 07:00 15:00 23:00 07:00 15:00 23:00 Intake Total 420 ml 360 ml 360 ml Output Total 760 ml Balance -760 ml 420 ml 360 ml 360 ml Intake Oral 420 ml 360 ml 360 ml IV Total 0 ml Output Urine Total 750 ml Drainage Total 10 ml # Voids 15 2 2 # Bowel Movements 0 0 0 Result Diagram: 01/24/17 0635 01/24/17 0635 Imaging Last Impressions Lumbar Spine X-Ray 01/21/17 0000 Signed Impressions: Service Date/Time: Saturday, January 21, 2017 09:09 - CONCLUSION: 1. Bilateral transpedicular fixation from L2-L4 with no significant listhesis. 2. Embolization type coils to the left of the L3-4 disc interspace. Campbell Thurston MD Chest X-Ray 01/21/17 0000 Signed Impressions: Service Date/Time: Saturday, January 21, 2017 14:29 - CONCLUSION: 1. Right IJ line distal tip in the SVC. No pneumothorax is present. 2. Mild atelectasis versus consolidation at the lung bases. Elias Tyler MD Angiography 01/20/17 0000 Signed Impressions: Service Date/Time: January 14:30 - CONCLUSION: 1. Technically successful uncomplicated bilateral L3 lumbar artery embolization, as above. Benji Hassan MD Lumbar Spine MRI 01/18/17 0000 Signed Impressions: Service Date/Time: Wednesday, January 18, 2017 12:30 - CONCLUSION: 1. Pathologic-appearing compression fracture of L3 with posterior expansion of the vertebral body wall, associated enhancing epidural soft tissue mass which extends into both neural foramina and severe central spinal stenosis. 2. Considering patient's history of renal cell carcinoma this likely represents metastatic disease. Roscoe Natarajan MD Procedures spm lumbar stabilization with screw fixation after arterial embolization Objective Remarks HEENT - AT/NC Resp - CTA CV - RRR without rub or gallop Abd - Spft and nontender. Active BS noted MS - Decreased ROM due to pain in low back Neuro - Intact Medications and IVs Current Medications Medications (Trade) Dose Ordered Sig/Brianna Route Start Time Stop Time Status Last Admin (NS Flush) 2 ml UNSCH PRN IV FLUSH 01/18/17 14:45 (NS Flush) 2 ml BID IV FLUSH 01/18/17 21:00 01/24/17 09:44 (Tylenol) 650 mg Q4H PRN PO 01/18/17 15:00 01/18/17 21:12 (Zofran Inj) 4 mg Q6H PRN IVP 01/18/17 15:00 (Ambien) 5 mg HS PRN PO 01/18/17 21:00 (Narcan Inj) 0.4 mg UNSCH PRN IV PUSH 01/18/17 14:45 (Milk Of Magnesia Liq) 30 ml Q12HR PRN PO 01/18/17 21:00 (Senokot) 17.2 mg Q12HR PRN PO 01/18/17 21:00 01/23/17 09:35 (Dulcolax Supp) 10 mg DAILY PRN RECTAL 01/18/17 15:00 (Lactulose Liq) 30 ml DAILY PRN PO 01/18/17 15:00 (Proscar) 5 mg DAILY PO 01/19/17 09:00 01/24/17 09:44 (Prinivil) 10 mg HS PO 01/18/17 21:00 01/23/17 20:58 (Protonix) 40 mg DAILY PO 01/19/17 09:00 01/24/17 09:44 (Xanax) 0.25 mg Q8H PRN PO 12/6/17 09:30 01/20/17 20:57 Sodium Chloride 1,000 ml @ 100 mls/hr Q10H IV 01/21/17 12:21 01/22/17 10:03 (Flexeril) 10 mg Q8H PRN PO 01/21/17 12:30 01/23/17 18:14 (Albuterol Neb) 2.5 mg Q4HR NEB PRN INH 01/21/17 12:30 (D50w (Vial) Inj) 50 ml UNSCH PRN IV PUSH 01/21/17 12:30 (Glucagon Inj) 1 mg UNSCH PRN OTHER 01/21/17 12:30 (Heparin Inj) 5,000 units Q12H SQ 01/23/17 18:00 01/24/17 05:35 (Percocet 10-325 Mg) 1 tab Q4H PRN PO 01/24/17 10:30 (Percocet 10-325 Mg) 2 tab Q4H PRN PO 01/24/17 10:30 (Morphine Inj) 2 mg Q2HR PRN IV PUSH 01/24/17 10:30 (Neurontin) 300 mg TID PO 01/24/17 13:00 Assessment and Plan Problem List: (1) Compression fracture of L3 lumbar vertebra ICD Codes: S32.030A - Wedge compression fracture of third lumbar vertebra, initial encounter for closed fracture Status: Acute Plan: F/U surgery as scheduled (2) Epidural mass ICD Codes: G96.19 - Other disorders of meninges, not elsewhere classified Status: Acute Plan: F/U Oncology this admission Discussed Condition With Patient Discharge Planning Home vs Rehab depending on timing of Planned radiation therapy as rehab can't take if on radiation. Problem Qualifiers (1) Compression fracture of L3 lumbar vertebra: Qualified Codes: S32.030D - Wedge compression fracture of third lumbar vertebra , subsequent encounter for fracture with routine healing Amarjit Motta Jan 24, 2017 13:08
[2017-01-24] MEDS: GABAPENTIN 300 MG CAP PO SCH ×2 (13:39→18:55)
[2017-01-24 16:00] VITALS: BP 123/61; PULSE 84; RESP 18; TEMP 99.4; O2SAT 95
[2017-01-24 20:50] VITALS: BP 118/58; PULSE 77; RESP 18; TEMP 99.1; O2SAT 95
[2017-01-24] MEDS: LISINOPRIL 10 MG TAB PO SCH (20:53)
[2017-01-24 23:25] VITALS: BP 125/61; PULSE 86; RESP 18; TEMP 98.9; O2SAT 94
[2017-01-25 00:51] VITALS: BP 117/64; PULSE 73; RESP 18; TEMP 98.8; O2SAT 96
[2017-01-25] MEDS: HEPARIN SODIUM - SQ 10,000 UNITS/ML VIAL SQ SCH ×2 (05:26→17:34)
[2017-01-25] MEDS: SENNOSIDES 8.6 MG TAB PO PRN ×2 (05:26→20:21)
[2017-01-25] MEDS: SODIUM CHLOR 0.9% 1000 ML INJ 1,000 ML IV SCH ×2 (05:42→16:21)
[2017-01-25 08:00] VITALS: BP_SYST 119; BP_SYST 130; BP_DIAS 69; PULSE 72; PULSE 81; RESP 16; TEMP 97.6; TEMP 99; O2SAT 100; O2SAT 96
--- NOTE | 2017-01-25 08:48 | HHI.PR ---
Subjective Remarks Resting on left side. Complains of increased pain on movement. No CP or SOB reported Objective Vital Signs Date Time Temp Pulse Resp B/P (MAP) Pulse Ox O2 Delivery O2 Flow Rate FiO2 01/25/17 00:51 98.8 73 18 117/64 (81) 96 01/24/17 20:50 99.1 77 18 118/58 (78) 95 01/24/17 16:00 99.4 84 18 123/61 (81) 95 01/24/17 12:00 97.6 78 18 117/65 (82) 96 I/O 01/24/17 01/24/17 01/24/17 01/25/17 01/25/17 01/25/17 07:00 15:00 23:00 07:00 15:00 23:00 Intake Total 360 ml 1080 ml 480 ml Balance 360 ml 1080 ml 480 ml Intake Oral 360 ml 1080 ml 480 ml # Voids 2 6 2 # Bowel Movements 0 0 0 Result Diagram: 01/24/1735 01/24/17 0635 Procedures spm lumbar stabilization with screw fixation after arterial embolization Objective Remarks GENERAL: alert and oriented SKIN: Warm and dry. Abdomen incision WNL. Drg on lower back HEAD: Normocephalic. EYES: No scleral icterus. No injection or drainage. NECK: Supple, trachea midline. No JVD or lymphadenopathy. CARDIOVASCULAR: Regular rate and rhythm without murmurs, gallops, or rubs. RESPIRATORY: Breath sounds equal bilaterally. No accessory muscle use. GASTROINTESTINAL: Abdomen soft, non-tender, nondistended. MUSCULOSKELETAL: No cyanosis, or edema. BACK: Nontender without obvious deformity. No CVA tenderness. Medications and IVs Current Medications Medications (Trade) Dose Ordered Sig/Biranna Route Start Time Stop Time Status Last Admin (NS Flush) 2 ml UNSCH PRN IV FLUSH 01/18/17 14:45 (NS Flush) 2 ml BID IV FLUSH 01/18/17 21:00 01/24/17 09:44 (Tylenol) 650 mg Q4H PRN PO 01/18/17 15:00 01/18/17 21:12 (Zofran Inj) 4 mg Q6H PRN IVP 01/18/17 15:00 (Ambien) 5 mg HS PRN PO 01/18/17 21:00 (Narcan Inj) 0.4 mg UNSCH PRN IV PUSH 01/18/17 14:45 (Milk Of Magnesia Liq) 30 ml Q12HR PRN PO 01/18/17 21:00 01/25/17 05:26 (Senokot) 17.2 mg Q12HR PRN PO 01/18/17 21:00 01/25/17 05:26 (Dulcolax Supp) 10 mg DAILY PRN RECTAL 01/18/17 15:00 (Lactulose Liq) 30 ml DAILY PRN PO 01/18/17 15:00 01/24/17 14:39 (Proscar) 5 mg DAILY PO 01/19/17 09:00 01/24/17 09:44 (Prinivil) 10 mg HS PO 01/18/17 21:00 01/24/17 20:53 (Protonix) 40 mg DAILY PO 01/19/17 09:00 01/24/17 09:44 (Xanax) 0.25 mg Q8H PRN PO 01/19/17 09:30 01/20/17 20:57 Sodium Chloride 1,000 ml @ 100 mls/hr Q10H IV 01/21/17 12:21 01/22/17 10:03 (Flexeril) 10 mg Q8H PRN PO 01/21/17 12:30 01/23/17 18:14 (Albuterol Neb) 2.5 mg Q4HR NEB PRN INH 01/21/17 12:30 (D50w (Vial) Inj) 50 ml UNSCH PRN IV PUSH 01/21/17 12:30 (Glucagon Inj) 1 mg UNSCH PRN OTHER 01/21/17 12:30 (Heparin Inj) 5,000 units Q12H SQ 01/23/17 18:00 01/25/17 05:26 (Percocet 10-325 Mg) 1 tab Q4H PRN PO 01/24/17 10:30 (Percocet 10-325 Mg) 2 tab Q4H PRN PO 01/24/17 10:30 (Morphine Inj) 2 mg Q2HR PRN IV PUSH 01/24/17 10:30 (Neurontin) 300 mg TID PO 01/24/17 13:00 01/24/17 18:55 Assessment and Plan Problem List: (1) Compression fracture of L3 lumbar vertebra ICD Codes: S32.030A - Wedge compression fracture of third lumbar vertebra, initial encounter for closed fracture Status: Acute (2) BPH (benign prostatic hyperplasia) ICD Codes: N40.0 - Benign prostatic hyperplasia without lower urinary tract symptoms (3) GERD (gastroesophageal reflux disease) ICD Codes: K21.9 - Gastro-esophageal reflux disease without esophagitis (4) HLD (hyperlipidemia) ICD Codes: E78.5 - Hyperlipidemia, unspecified (5) HTN (hypertension) ICD Codes: I10 - Essential (primary) hypertension (6) Epidural mass ICD Codes: G96.19 - Other disorders of meninges, not elsewhere classified Status: Acute Assessment and Plan 01/19/17 Compression fx: Neurosurgery consulted. CT of lumbar spine: Pathologic- appearing compression fracture of L3 with posterior expansion of the vertebral body wall, associated enhancing epidural soft tissue mass which extends into both neural foramina and severe central spinal stenosis. Considering patient's history of renal cell carcinoma this likely represents metastatic disease. HTN: Continue home medications. Well controlled HLD: statin is on hold GERD: Continue PPI asymptomatic Anxiety: xanax PRN BPH: Continue home medications. Labs in AM. SCD's ordered. 01/20/07 Compression fx: Neurosurgery consulted. CT of lumbar spine: Pathologic- appearing compression fracture of L3 with posterior expansion of the vertebral body wall, associated enhancing epidural soft tissue mass which extends into both neural foramina and severe central spinal stenosis. Considering patient's history of renal cell carcinoma this likely represents metastatic disease. Neuro checks. Awaiting angiography with endovascular embolization today. OR tomorrow for spinal decompression and resection of metastatic tumor. HTN: Continue home medications. Well controlled HLD: statin is on hold GERD: Continue PPI asymptomatic Anxiety: xanax PRN 01/21/17 Compression fx: Patient seen early this morning plan to OR this morning for spinal decompression and resection of metastatic tumor. Following this he will require staging. PET scan and MRI of brain. He will require post op radiation. Most likely represent metastatic renal carcinoma. HTN: Continue current medication regimen well controlled. 01/25/17 Compression FX: S/P status post spinal decompression at L3 with internal stabilization L2-L4 on the 8th. Complaining of pain with activity. Has Percocet and morphine for break through pain. Gabapentin added. 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 Short course of radiation treatment to the tumor bed to help prevent or delay onset of local recurrence is recommended. HTN: Well controlled Anxiety: Xanax PRN. Patient is also very depressed will discuss about adding antidepressant. DVT and GI prophylaxis. PT and OT I and the [employer] have both examined this patient and reviewed this note and I agree with these findings and plan of care. Tushar Ty DO Problem Qualifiers (1) Compression fracture of L3 lumbar vertebra: Qualified Codes: S32.030D - Wedge compression fracture of third lumbar vertebra , subsequent encounter for fracture with routine healing Ines Collado. [facility] Jan 25, 2017 08:48
[2017-01-25] MEDS: PANTOPRAZOLE SOD 40 MG DELAYED RELEASE TAB PO SCH (09:45)
[2017-01-25] MEDS: FINASTERIDE 5 MG TAB PO SCH (09:45)
[2017-01-25] MEDS: GABAPENTIN 300 MG CAP PO SCH ×3 (09:45→17:34)
[2017-01-25] MEDS: SODIUM CHLORIDE 0.9% FLUSH 10 ML FLUSH IV FLUSH SCH ×2 (09:46→20:22)
--- NOTE | 2017-01-25 14:32 | HHI.NSPN ---
(Zara Edmondson) Note Status Status: Progress Note (Zara Edmondson) Interval History Interval History This is a 71 year old male with right renal cell carcinoma s/p right nephrectomy 3 weeks ago at [facility] in [place]. he was admitted with severe, intractable lower back pain that became worst yesterday. Pain is sharp , worst with movement and radiating across left and right lower back. Pain level of up to 8-9/10. Only relieved when lying down. Pt also with bilateral lower extremity numbness more on bilateral lateral aspect of thighs and up to above both knees. Said he has had numbness before but never constant like the last 3-4 days. He Denies any trauma, fever,focal weakness, chest pain, sob, n/v , abdominal pain. Lumbar on spine with pathologic-appearing compression fracture of L3 with posterior expansion of the vertebral body wall, associated enhancing epidural soft tissue mass which extends into both neural foramina and severe central spinal stenosis.Considering patient's history of renal cell carcinoma this likely represents metastatic disease. Neurosurgical consultation was requested 01/20: awaiting angiography with embolization of L3 tumor. to OR tomorrow. no new complaints 01/21 status post spinal decompression at L3 with internal stabilization L2-L4 01/22 patient endorses moderate back pain. He was able to stand with minimal difficulties. 01/23 no acute events overnight. Patient endorses persistent low back pain. 01/24: no lumbar pain when laying still, pain increases with movement. off [employer], current medications not providing enough pain control, reports lower extremity dysesthesias improving 01/25: doing well, surgical pain slowly improving. no new complaints. (Zara Edmondson) Labs, Micro, & Vital Signs Results Date Time Temp Pulse Resp B/P (MAP) Pulse Ox O2 Delivery O2 Flow Rate FiO2 01/25/17 08:00 99.0 72 16 119/69 (86) 100 01/25/17 08:00 97.6 81 16 130/69 (89) 96 01/25/17 00:51 98.8 73 18 117/64 (81) 96 01/24/17 20:50 99.1 77 18 118/58 (78) 95 01/24/17 16:00 99.4 84 18 123/61 (81) 95 Constitutional Vital Signs Date Time Temp Pulse Resp B/P (MAP) Pulse Ox O2 Delivery O2 Flow Rate FiO2 01/25/17 08:00 99.0 72 16 119/69 (86) 100 01/25/17 08:00 97.6 81 16 130/69 (89) 96 01/25/17 00:51 98.8 73 18 117/64 (81) 96 01/24/17 20:50 99.1 77 18 118/58 (78) 95 01/24/17 16:00 99.4 84 18 123/61 (81) 95 (Zara Edmondson) Review of Systems Constitutional: DENIES: Fever, Chills Musculoskeletal: COMPLAINS OF: Back pain Neurologic: COMPLAINS OF: Paresthesias (Zara Edmondson) Physical Exam awake and alert. He is in no acute distress. Speech is clear, appropriate, and non-aphasic Neck: soft, supple CN II-XII: Grossly intact Motor: 5/5 to all muscle groups tested. No focal weakness. Sensory: Intact to light touch throughout. Integument: Dressing in place, clean and dry. (Zara Edmondson) Medical Decision Making MDM Remarks 71 y/o male with suspected metastatic renal cell CA to spine, with pathological L3 fracture with epidural extension and severe stenosis/spinal cord compression s/p spinal decompression at L3 with internal stabilization L2-L4 on 01/21/17 Renal Cell CA, s/p nephrectomy at [facility] (Zara Edmondson) Plan Plan Remarks cont on Percocet prn, with IV morphine for breakthrough contt Neurontin 300 tid cont therapy, increase mobilization OOB with TLSO cont rehab efforts ok to dc to rehab from NRS standpoint once pain better controlled (Zara Edmondson) Attending Statement The exam, history, and the medical decision-making described in the above note were completed with the assistance of the mid-level provider. I reviewed and agree with the findings presented. I attest that I had a [id number] encounter with the patient on the same day, and personally performed and documented my assessment and findings in the medical record. (Monroe Ray MD) Zara Edmondson Jan 25, 2017 14:32 Monroe Ray MD Jan 25, 2017 21:19
[2017-01-25 16:00] VITALS: BP 95/50; PULSE 81; RESP 16; TEMP 97.4; O2SAT 98
[2017-01-25] MEDS: LISINOPRIL 10 MG TAB PO SCH (20:21)
[2017-01-25 20:25] VITALS: BP 125/61; PULSE 86; RESP 18; TEMP 98.9; O2SAT 94
[2017-01-26 00:07] VITALS: BP 152/67; PULSE 88; RESP 18; TEMP 99.1; O2SAT 97
[2017-01-26] MEDS: SODIUM CHLOR 0.9% 1000 ML INJ 1,000 ML IV SCH (02:08)
[2017-01-26] MEDS: HEPARIN SODIUM - SQ 10,000 UNITS/ML VIAL SQ SCH (04:21)
[2017-01-26] MEDS ORDERED: CYCL10TA PO (07:55)
[2017-01-26] MEDS ORDERED: NEUR300C PO (07:55)
[2017-01-26] MEDS ORDERED: OXYC1TAB36 PO (07:55)
[2017-01-26] MEDS ORDERED: DULO20 PO (07:55)
[2017-01-26] MEDS ORDERED: ATOR20TA15 PO (07:55)
[2017-01-26] MEDS ORDERED: LISI10TA3 PO (07:55)
[2017-01-26] MEDS ORDERED: ACET325T15 PO (07:55)
[2017-01-26] MEDS ORDERED: ALPR.25 PO (07:55)
[2017-01-26] MEDS ORDERED: FINA5TAB2 PO (07:55)
[2017-01-26] MEDS ORDERED: PANT40TA3 PO (07:55)
[2017-01-26] MEDS ORDERED: AMBI5TAB PO (07:55)
[2017-01-26 08:00] VITALS: BP 122/68; PULSE 69; RESP 20; TEMP 98.9; O2SAT 96
[2017-01-26] MEDS: PANTOPRAZOLE SOD 40 MG DELAYED RELEASE TAB PO SCH (08:23)
[2017-01-26] MEDS: FINASTERIDE 5 MG TAB PO SCH (08:23)
[2017-01-26] MEDS: GABAPENTIN 300 MG CAP PO SCH (08:23)
[2017-01-26] MEDS: SODIUM CHLORIDE 0.9% FLUSH 10 ML FLUSH IV FLUSH SCH (08:24)
--- NOTE | 2017-01-26 08:33 | HHI.PR ---
Subjective Remarks Resting comfortably. Reports that therapy went well yesterday. No CP or SOB reported Objective Vital Signs Date Time Temp Pulse Resp B/P (MAP) Pulse Ox O2 Delivery O2 Flow Rate FiO2 01/26/17 00:07 99.1 88 18 152/67 (95) 97 01/25/17 20:25 98.9 86 18 125/61 (82) 94 01/25/17 16:00 97.4 81 16 95/50 (65) 98 I/O 01/25/17 01/25/17 01/25/17 01/26/17 01/26/17 01/26/17 06:59 14:59 22:59 06:59 14:59 22:59 Intake Total 960 ml 960 ml 480 ml Balance 960 ml 960 ml 480 ml Intake Oral 960 ml 960 ml 480 ml # Voids 4 6 3 # Bowel Movements 1 2 0 Result Diagram: 01/24/17 0635 01/24/17 0635 Procedures spm lumbar stabilization with screw fixation after arterial embolization Objective Remarks GENERAL: alert and oriented SKIN: Warm and dry. Abdomen incision WNL. Drg on lower back HEAD: Normocephalic. EYES: No scleral icterus. No injection or drainage. NECK: Supple, trachea midline. No JVD or lymphadenopathy. CARDIOVASCULAR: Regular rate and rhythm without murmurs, gallops, or rubs. RESPIRATORY: Breath sounds equal bilaterally. No accessory muscle use. GASTROINTESTINAL: Abdomen soft, non-tender, nondistended. MUSCULOSKELETAL: No cyanosis, or edema. BACK: Nontender without obvious deformity. No CVA tenderness. Medications and IVs Current Medications Medications (Trade) Dose Ordered Sig/Brianna Route Start Time Stop Time Status Last Admin (NS Flush) 2 ml UNSCH PRN IV FLUSH 01/18/17 14:45 (NS Flush) 2 ml BID IV FLUSH 01/18/17 21:00 01/26/17 08:24 (Tylenol) 650 mg Q4H PRN PO 01/18/17 15:00 01/18/17 21:12 (Zofran Inj) 4 mg Q6H PRN IVP 01/18/17 15:00 (Ambien) 5 mg HS PRN PO 01/18/17 21:00 (Narcan Inj) 0.4 mg UNSCH PRN IV PUSH 01/18/17 14:45 (Milk Of Magnesia Liq) 30 ml Q12HR PRN PO 01/18/17 21:00 01/25/17 05:26 (Senokot) 17.2 mg Q12HR PRN PO 01/18/17 21:00 01/25/17 20:21 (Dulcolax Supp) 10 mg DAILY PRN RECTAL 01/18/17 15:00 (Lactulose Liq) 30 ml DAILY PRN PO 01/18/17 15:00 01/24/17 14:39 (Proscar) 5 mg DAILY PO 01/19/17 09:00 01/26/17 08:23 (Prinivil) 10 mg HS PO 01/18/17 21:00 01/25/17 20:21 (Protonix) 40 mg DAILY PO 01/19/17 09:00 01/26/17 08:23 (Xanax) 0.25 mg Q8H PRN PO 01/19/17 09:30 01/20/17 20:57 Sodium Chloride 1,000 ml @ 100 mls/hr Q10H IV 01/21/17 12:21 01/22/17 10:03 (Flexeril) 10 mg Q8H PRN PO 01/21/17 12:30 01/23/17 18:14 (Albuterol Neb) 2.5 mg Q4HR NEB PRN INH 01/21/17 12:30 (D50w (Vial) Inj) 50 ml UNSCH PRN IV PUSH 01/21/17 12:30 (Glucagon Inj) 1 mg UNSCH PRN OTHER 01/21/17 12:30 (Heparin Inj) 5,000 units Q12H SQ 01/23/17 18:00 01/26/17 04:21 (Percocet 10-325 Mg) 1 tab Q4H PRN PO 01/24/17 10:30 (Percocet 10-325 Mg) 2 tab Q4H PRN PO 01/24/17 10:30 (Morphine Inj) 2 mg Q2HR PRN IV PUSH 01/24/17 10:30 (Neurontin) 300 mg TID PO 01/24/17 13:00 01/26/17 08:23 (Cymbalta Dr) 20 mg DAILY PO 01/26/17 09:00 01/26/17 08:23 Assessment and Plan Problem List: (1) Compression fracture of L3 lumbar vertebra ICD Codes: S32.030A - Wedge compression fracture of third lumbar vertebra, initial encounter for closed fracture Status: Acute (2) BPH (benign prostatic hyperplasia) ICD Codes: N40.0 - Benign prostatic hyperplasia without lower urinary tract symptoms (3) GERD (gastroesophageal reflux disease) ICD Codes: K21.9 - Gastro-esophageal reflux disease without esophagitis (4) HLD (hyperlipidemia) ICD Codes: E78.5 - Hyperlipidemia, unspecified (5) HTN (hypertension) ICD Codes: I10 - Essential (primary) hypertension (6) Epidural mass ICD Codes: G96.19 - Other disorders of meninges, not elsewhere classified Status: Acute Assessment and Plan 01/19/17 Compression fx: Neurosurgery consulted. CT of lumbar spine: Pathologic- appearing compression fracture of L3 with posterior expansion of the vertebral body wall, associated enhancing epidural soft tissue mass which extends into both neural foramina and severe central spinal stenosis. Considering patient's history of renal cell carcinoma this likely represents metastatic disease. HTN: Continue home medications. Well controlled HLD: statin is on hold GERD: Continue PPI asymptomatic Anxiety: xanax PRN BPH: Continue home medications. Labs in AM. SCD's ordered. 01/20/07 Compression fx: Neurosurgery consulted. CT of lumbar spine: Pathologic- appearing compression fracture of L3 with posterior expansion of the vertebral body wall, associated enhancing epidural soft tissue mass which extends into both neural foramina and severe central spinal stenosis. Considering patient's history of renal cell carcinoma this likely represents metastatic disease. Neuro checks. Awaiting angiography with endovascular embolization today. OR tomorrow for spinal decompression and resection of metastatic tumor. HTN: Continue home medications. Well controlled HLD: statin is on hold GERD: Continue PPI asymptomatic Anxiety: xanax PRN 01/21/17 Compression fx: Patient seen early this morning plan to OR this morning for spinal decompression and resection of metastatic tumor. Following this he will require staging. PET scan and MRI of brain. He will require post op radiation. Most likely represent metastatic renal carcinoma. HTN: Continue current medication regimen well controlled. 01/25/17 Compression FX: S/P status post spinal decompression at L3 with internal stabilization L2-L4 on the 8th. Complaining of pain with activity. Has Percocet and morphine for break through pain. Gabapentin added. 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 Short course of radiation treatment to the tumor bed to help prevent or delay onset of local recurrence is recommended. HTN: Well controlled Anxiety: Xanax PRN. Patient is also very depressed will discuss about adding antidepressant. DVT and GI prophylaxis. PT and OT 01/26/17 Compression FX: S/P status post spinal decompression at L3 with internal stabilization L2-L4 on the 8th. On Gabapentin and Percocet for pain. 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 Short course of radiation treatment to the tumor bed to help prevent or delay onset of local recurrence is recommended. Reported that therapy went well yesterday. HTN: Well controlled will continue to monitor Anxiety: Xanax PRN. Cymbalta added \ Discharge plans are underway. Labs pending Will removal central line I and the [employer] JUDGE have both examined this patient and reviewed this note and I agree with these findings and plan of care. Tushar Ty DO Problem Qualifiers (1) Compression fracture of L3 lumbar vertebra: Qualified Codes: S32.030D - Wedge compression fracture of third lumbar vertebra , subsequent encounter for fracture with routine healing Ines Collado [employer] Jan 26, 2017 08:33
[2017-01-26] MEDS ORDERED: DULoxetine HCl DR 20 MG CAP PO SCH (09:00)
--- NOTE | 2017-01-26 09:20 | HHI.DS ---
Discharge Summary Admission Date Jan 18, 2017 at 14:37 Discharge Date: Jan 26, 2017 Admitting Diagnosis Compression fracture L3, epidural soft tissue mass (1) Compression fracture of L3 lumbar vertebra ICD Codes: S32.030A - Wedge compression fracture of third lumbar vertebra, initial encounter for closed fracture Status: Acute (2) Epidural mass ICD Codes: G96.19 - Other disorders of meninges, not elsewhere classified Status: Acute (3) GERD (gastroesophageal reflux disease) ICD Codes: K21.9 - Gastro-esophageal reflux disease without esophagitis (4) HTN (hypertension) ICD Codes: I10 - Essential (primary) hypertension (5) HLD (hyperlipidemia) ICD Codes: E78.5 - Hyperlipidemia, unspecified (6) BPH (benign prostatic hyperplasia) ICD Codes: N40.0 - Benign prostatic hyperplasia without lower urinary tract symptoms Procedures spm lumbar stabilization with screw fixation after arterial embolization Brief History 71yo M with PMH of right renal cell carcinoma s/p right nephrectomy 3 weeks ago at [facility] in [place] here with c/o lower back pain that was worst yesterday. Pain is sharp, worst with movement and radiating across left and right lower back. Pain level of up to 7. Only relieved when lying down. Pt also with bilateral lower extremity numbness more on bilateral lateral aspect of thighs and up to above both knees. Said he has had numbness before but never constant like the last 3-4 days. Denies any trauma, fever, IVDA, focal weakness, chest pain, sob, n/v, abdominal pain. Lumbar on spine with pathologic -appearing compression fracture of L3 with posterior expansion of the vertebral body wall, associated enhancing epidural soft tissue mass which extends into both neural foramina and severe central spinal stenosis.Considering patient's history of renal cell carcinoma this likely represents metastatic disease. CBC/BMP: 01/24/17 0635 01/24/17 0635 Significant Findings Laboratory Tests Test 01/24/17 06:35 Red Blood Count 3.21 MIL/MM3 (4.50-5.90) Hemoglobin 9.9 GM/DL (13.0-17.0) Hematocrit 29.0 % (39.0-51.0) Neutrophils (%) (Auto) 83.9 % (16.0-70.0) Lymphocytes (%) (Auto) 5.2 % (9.0-44.0) Monocytes (%) (Auto) 10.0 % (0.0-8.0) Neutrophils # (Auto) 8.9 TH/MM3 (1.8-7.7) Lymphocytes # (Auto) 0.5 TH/MM3 (1.0-4.8) Monocytes # (Auto) 1.1 TH/MM3 (0-0.9) Blood Urea Nitrogen 20 MG/DL (7-18) Random Glucose 118 MG/DL (74-106) Sodium Level 134 MEQ/L (136-145) Estimat Glomerular Filtration Rate 58 ML/MIN (>89) PE at Discharge GENERAL: alert and oriented SKIN: Warm and dry. Abdomen incision WNL. Drg on lower back HEAD: Normocephalic. EYES: No scleral icterus. No injection or drainage. NECK: Supple, trachea midline. No JVD or lymphadenopathy. CARDIOVASCULAR: Regular rate and rhythm without murmurs, gallops, or rubs. RESPIRATORY: Breath sounds equal bilaterally. No accessory muscle use. GASTROINTESTINAL: Abdomen soft, non-tender, nondistended. MUSCULOSKELETAL: No cyanosis, or edema. BACK: Nontender without obvious deformity. No CVA tenderness. Hospital Course 71yo M with PMH of right renal cell carcinoma s/p right nephrectomy 3 weeks ago at [facility] in [place] who presented to ER with c/o lower back pain. Patient underwent a post spinal decompression at L3 with internal stabilization L2-L4 on the 8th. On Gabapentin and Percocet for pain which is now controlling his pain. 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 Short course of radiation treatment to the tumor bed to help prevent or delay onset of local recurrence is recommended. Patient is progressing in therapy and had a very good day yesterday but will need strength training. Also followed for HTN which has been well controlled. Discharged to [place] [facility]. Pt Condition on Discharge: Good Discharge Disposition: Rehab Inpatient Discharge Instructions DIET: Follow Instructions for: As Tolerated, No Restrictions Activities you can perform: Regular-No Restrictions New Medications: Acetaminophen (Eq Acetaminophen) 325 Mg Tab 650 MG PO Q4H PRN for TEMP > 100.4 for 30 Days, #360 TAB Alprazolam (Xanax) 0.25 Mg Tab 0.25 MG PO Q8H PRN for ANXIETY for 30 Days, #90 TAB Cyclobenzaprine (Flexeril) 10 Mg Tab 10 MG PO Q8H PRN for MUSCLE SPASM for 14 Days, #[address] (Cymbalta DR) 20 Mg Capdr 20 MG PO DAILY for Depression Control for 30 Days, #30 CAP Gabapentin (Neurontin) 300 Mg Cap 300 MG PO TID for Pain for 30 Days, #30 CAP Oxycodone HCl/Acetaminophen (Oxycodone-Acetaminophen 10-325) 10 Mg-325 Mg Tablet 1 TAB PO Q4H PRN for PAIN SCALE 1 TO 5 for 7 Days, #42 TAB Oxycodone HCl/Acetaminophen (Oxycodone-Acetaminophen 10-325) 10 Mg-325 Mg Tablet 2 TAB PO Q4H PRN for PAIN SCALE 6 TO 10 for 7 Days, #84 TAB Zolpidem (Ambien) 5 Mg Tab 5 MG PO HS PRN for INSOMNIA for 14 Days, #14 TAB Continued Medications: Atorvastatin (Atorvastatin) 20 Mg Tab 20 MG PO HS for Cholesterol Management for 30 Days, #30 TAB 0 Refills (This prescription has been renewed) Finasteride (Finasteride) 5 Mg Tab 5 MG PO DAILY for Manage Prostate Problems, #30 TAB 0 Refills (This prescription has been renewed) Do not crush. Lisinopril (Lisinopril) 10 Mg Tab 10 MG PO HS for Blood Pressure Management for 30 Days, #30 TAB 0 Refills (This prescription has been renewed) Pantoprazole (Pantoprazole) 40 Mg Tab 40 MG PO DAILY for Reflux, #30 TAB 0 Refills (This prescription has been renewed ) Testosterone (Testosterone) 25 Mg/2.5 Gram (1 %) Gel.packet 1 APPLIC T-DERMAL DAILY Ines Collado Jan 26, 2017 09:20
== END 2017-01-26 11:34 | DRG 457 ==
LOC: PHED 09:40 → PHEDA 14:32 → INTOOBSV 14:32 → OBSVTOIN 14:37 → N06A 18:26
PROVIDERS: ADMIT Family Medicine; ATTEND Family Medicine
PROC: 04LY3DZ Occlusion of Lower Artery with Intraluminal Device, Percutaneous Approach (ICD-10-PCS; 2017-01-20)
PROC: 4A11X4G Monitoring of Peripheral Nervous Electrical Activity, Intraoperative, External Approach (ICD-10-PCS; 2017-01-21)
PROC: 0QS Lower Bones, Reposition (ICD-10-PCS; 2017-01-21)
PROC: 0SG1071 Fusion of 2 or more Lumbar Vertebral Joints with Autologous Tissue Substitute, Posterior Approach, Posterior Column, Open Approach (ICD-10-PCS; principal; 2017-01-21 08:00)
DX: M84.58XA Pathological fracture in neoplastic disease, other specified site, initial encounter for fracture (principal); C79.51 Secondary malignant neoplasm of bone; C64.1 Malignant neoplasm of right kidney, except renal pelvis; Z90.5 Acquired absence of kidney; K21.9 Gastro-esophageal reflux disease without esophagitis; I10 Essential (primary) hypertension; E78.5 Hyperlipidemia, unspecified; M48.061 Spinal stenosis, lumbar region without neurogenic claudication; F41.9 Anxiety disorder, unspecified; N40.0 Benign prostatic hyperplasia without lower urinary tract symptoms
CPT/HCPCS: 36245; 37243; 71010; 72100; 72158; 75625; 75705; 76000; 76937; 80048; 80053; 81001; 85025; 85610; 85730; 86850; 86900; 86901; 86920; 88307; 88311; 88331; 88341; 88342; 93005; 94150; 96361; 96374; 99152; 99153; A9577; C1769; C1887; C1894; J0131; J0690; J1100; J1170; J1580; J1644; J2250; J2270; J3010; J3370; J3480; J7030; J7120; L0484; Q9967

== ENCOUNTER 2017-08-08 18:35 | Inpatient (IN) | payer MEDICARE, BC ==
[~2017-08-08] VITALS: Ht 182.9 cm; Wt 75.5 kg
[~2017-08-08 18:35] MED LIST changes: +ACET325T15 PO; -ALL220TA; +ATOR20TA15 PO; +FINA5TAB2 PO; -HYDR-3533 PO; +NU-IRON PO; +PANT40TA3 PO; +PERI PO; -SILV1CRE80 TOP; -VICOTAB4; +WALKER GLIDE WH1 MI1; +[UNRECOGNIZED DRUG - CODE] T-DERMAL
[2017-08-08 18:44] VITALS: BP 135/69; PULSE 77; RESP 15; TEMP 98; O2SAT 99
[2017-08-08] MEDS ORDERED: SODIUM CHLOR 0.9% 1000 ML INJ 1,000 ML IV ONE (19:30)
[2017-08-08] MEDS ORDERED: ONDANSETRON ODT 4 MG TAB PO ONE (19:30)
--- NOTE | 2017-08-08 19:47 | PD ---
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 The patient is undergoing chemotherapy and radiation therapy. The patient is now on immunotherapy. His oncologist is Dr. Benz. He has been on the immunotherapy for the last 11 weeks. The patient reports that over the last week he has had progressively worsening diarrhea. He reports that he has had diarrhea 10-15 times per day. He reports that on Tuesday, Tuesday, and this Tuesday he has had darkening of his stool. He denies having any bright red blood in his stool. He reports that on Tuesday night after his last immunotherapy dose he also had nausea and vomiting throughout the night. He reports having continued nausea since then, however no vomiting. He reports having a dry mouth, generalized weakness and fatigue. He reports that he also has absolutely no appetite. He denies having any recent fevers. He denies having any associated abdominal pain. On review of systems otherwise, the patient reports having darkening of his urine was slightly decreased urine output. He denies having any cough, congestion, neck pain, chest pain, shortness of breath, or neurologic symptoms. 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 Arthritis: No Asthma: No Autoimmune Disease: No Heart Rhythm Problems: Yes (slightly irregular, monitored) Cancer: Yes (renal cell carcinoma with metastases) Cardiovascular Problems: No High Cholesterol: Yes Chemotherapy: Yes Chest Pain: No Congestive Heart Failure: No COPD: No Cerebrovascular Accident: No Diabetes: Yes (prediabetes) Diminished Hearing: No GERD: Yes Genitourinary: No Hiatal Hernia: No Hypertension: Yes Immune Disorder: No Kidney Stones: No Musculoskeletal: No Neurologic: No Psychiatric: No Reproductive: No Respiratory: No Immunizations Current: Yes Migraines: No Radiation Therapy: No Renal Failure: No Seizures: No Sickle Cell Disease: No Sleep Apnea: No Thyroid Disease: No Ulcer: No Past Surgical History Narrative Surgical The patient's past surgical history is significant for bilateral carpal tunnel release, left knee surgery, right knee surgery, right nephrectomy, L3 laminectomy, tonsillectomy Abdominal Surgery: Yes (right nephrectomy December 2016) Cardiac Surgery: Yes Ear Surgery: No Endocrine Surgery: No Eye Surgery: No Genitourinary Surgery: No Gynecologic Surgery: No Oral Surgery: No Thoracic Surgery: No Tonsillectomy: Yes Social History Alcohol Use: Yes (OCCASIONALLY) Tobacco Use: No (FORMER) Substance Use: No Allergies-Medications (Allergen,Severity, Reaction): Coded Allergies: No Known Allergies (Verified Allergy, Mild, 03/08/17) Reported Meds & Prescriptions Reported Meds & Active Scripts Active Gnp Senna Plus 8.6-50 mg (Sennosides-Docusate Sodium) 8.6 Mg-50 Mg Tab 1 Tab PO BID 30 Days Poly-Iron 150 (Polysaccharide Iron Complex) 150 Mg Iron Cap 150 Mg PO Q12HR 30 Days Eq Acetaminophen (Acetaminophen) 325 Mg Tab 650 Mg PO Q4H PRN MDD 2000mg 30 Days Pantoprazole (Pantoprazole Sodium) 40 Mg Tab 40 Mg PO DAILY 30 Days Finasteride 5 Mg Tab 5 Mg PO DAILY 30 Days Do not crush. Atorvastatin (Atorvastatin Calcium) 20 Mg Tab 20 Mg PO HS 30 Days Reported Testosterone 25 Mg/2.5 Gram (1 %) Gel.packet 1 Applic T-DERMAL DAILY Review of Systems Except as stated in HPI: all other systems reviewed are Neg General / Constitutional: No: Fever Eyes: No: Visual changes HENT: No: Headaches Cardiovascular: No: Chest Pain or Discomfort Respiratory: No: Shortness of Breath Gastrointestinal: Positive: Nausea, Vomiting, Diarrhea, Changes in Bowel Habits , Loss of Appetite, No: Abdominal Pain, Hematemesis, Hematochezia, Indigestion Genitourinary: No: Dysuria Musculoskeletal: No: Pain Skin: No Rash Neurologic: Positive: Weakness (Generalized weakness), No: Focal Abnormalities , Change in Mentation, Slurred Speech, Sensory Disturbance Psychiatric: No: Depression Endocrine: No: Polydipsia Hematologic/Lymphatic: No: Easy Bruising Physical Exam Narrative General: The patient is a well-developed well-nourished male in no acute distress. Head and Neck exam: Head is normocephalic atraumatic. Eyes: EOMI, pupils are equal round and reactive to light. Nose: Midline septum with pink mucous membranes Mouth: Dentition unremarkable. Tacky mucus membranes. Posterior oropharynx is not erythematous. No tonsillar hypertrophy. Uvula midline. Airway patent. Neck: No palpable lymphadenopathy. No nuchal rigidity. No thyromegaly. Cardiovascular: Regular rate and rhythm without murmurs, gallops, or rubs. No pulse deficit to the extremities on simultaneous auscultation and palpation of his radial artery. Lungs: Clear to auscultation bilaterally. No wheezes, rhonchi, or rales. Abdomen: Soft, without tenderness to palpation in all 4 quadrants of the abdomen. No guarding, rebound, or rigidity. Normal bowel sounds are audible. No tenderness on palpation of McBurney's point. Negative Rankin sign. Extremities: No clubbing, cyanosis, or edema. 2+ pulses in all 4 extremities. No calf tenderness on palpation. Back: No costovertebral angle tenderness to palpation. Neurologic Exam: Grossly nonfocal. Skin Exam: No rash noted. Intact skin that is warm and dry. RECTAL EXAM: The patient was noted to have some perirectal irritation/erythema. No masses or hemorrhoids noted. The patient had no significant stool in the rectal vault. Mucus was trace Hemoccult positive. Data Data Last Documented VS Vital Signs Date Time Temp Pulse Resp B/P (MAP) Pulse Ox O2 Delivery O2 Flow Rate FiO2 08/08/17 18:44 98.0 77 15 135/69 (91) 99 Orders Orders Complete Blood Count With Diff (08/08/17 19:16) Comprehensive Metabolic Panel (08/08/17 19:16) C-Reactive Protein (Crp) (08/08/17 19:16) Lipase (08/08/17 19:16) Urinalysis - C+S If Indicated (08/08/17 19:16) Magnesium (Mg) (08/08/17 19:16) Enteric Path (Stool) (08/08/17 19:16) C Diff Toxin Pcr (08/08/17 19:16) Chest, Single Ap (08/08/17 19:16) Iv Access Insert/Monitor (08/08/17 19:16) Ecg Monitoring (08/08/17 19:16) Oximetry (08/08/17 19:16) Stool Wbc (Leukocytes) (08/08/17 19:16) Sodium Chlor 0.9% 1000 Ml Inj (Ns 1000 M (08/08/17 19:30) Ondansetron Odt (Zofran Odt) (08/08/17 19:30) Admit Order (Ed Use Only) (08/08/17 20:51) Ct Abd/Pel W/O Iv Contrast (08/08/17 20:51) Labs Laboratory Tests Test 08/08/17 19:30 White Blood Count 8.7 TH/MM3 Red Blood Count 4.11 MIL/MM3 Hemoglobin 13.3 GM/DL Hematocrit 38.7 % Mean Corpuscular Volume 94.2 FL Mean Corpuscular Hemoglobin 32.4 PG Mean Corpuscular Hemoglobin Concent 34.4 % Red Cell Distribution Width 12.4 % Platelet Count 289 TH/MM3 Mean Platelet Volume 7.4 FL Neutrophils (%) (Auto) 72.6 % Lymphocytes (%) (Auto) 6.4 % Monocytes (%) (Auto) 20.1 % Eosinophils (%) (Auto) 0.6 % Basophils (%) (Auto) 0.3 % Neutrophils # (Auto) 6.3 TH/MM3 Lymphocytes # (Auto) 0.6 TH/MM3 Monocytes # (Auto) 1.7 TH/MM3 Eosinophils # (Auto) 0.1 TH/MM3 Basophils # (Auto) 0.0 TH/MM3 CBC Comment DIFF FINAL Differential Comment Urine Color Georgina Urine Turbidity HAZY Urine pH 5.0 Urine Specific [place] 1.027 Urine Protein 30 mg/dL Urine Glucose (UA) NEG mg/dL Urine Ketones NEG mg/dL Urine Occult Blood NEG Urine Nitrite NEG Urine Bilirubin NEG Urine Urobilinogen LESS THAN 2 mg/dL Urine Leukocyte Esterase NEG Urine RBC 3 /hpf Urine WBC 1 /hpf Urine Mucus MANY /lpf Microscopic Urinalysis Comment CULT NOT INDICATED Stool C. difficile Toxin (PCR) NEGATIVE Stl C. difficile Toxin Epiderm 027 PRESUMPTIVE NEGATIVE Blood Urea Nitrogen 19 MG/DL Creatinine 1.64 MG/DL Random Glucose 129 MG/DL Total Protein 7.4 GM/DL Albumin 3.1 GM/DL Calcium Level 9.6 MG/DL Magnesium Level 1.5 MG/DL Alkaline Phosphatase 105 U/L Aspartate Amino Transf (AST/SGOT) 14 U/L Alanine Aminotransferase (ALT/SGPT) 21 U/L Total Bilirubin 0.4 MG/DL Sodium Level 135 MEQ/L Potassium Level 3.6 MEQ/L Chloride Level 105 MEQ/L Carbon Dioxide Level 20.8 MEQ/L Anion Gap 9 MEQ/L Estimat Glomerular Filtration Rate 42 ML/MIN C-Reactive Protein 6.20 MG/DL Lipase 985 U/L MDM Medical Decision Making Medical Screen Exam Complete: Yes Emergency Medical Condition: Yes Medical Record Reviewed: Yes Differential Diagnosis Medication side effect, versus dehydration, versus a left colitis, versus viral gastroenteritis Narrative Course During the course of the patient's emergency department visit, the patient's history, examination, and differential diagnosis were reviewed with the patient. The patient was placed on a media monitor with oximetry and frequent blood pressure monitoring. The patient had IV access obtained and blood work sent for analysis. Stool studies were ordered. The patient was initially provided normal saline 1 L IV fluid bolus, Zofran ODT. The patient's laboratory studies were reviewed and remarkable for white count of 8.7, hemoglobin 13.3, platelets 289 with 72.6 neutrophils, lymphocytes 6.4, monocytes 20.1. CMP is remarkable for sodium of 135, CO2 20.8, BUN 19, 4, glucose 129, AST 14, C-reactive protein is elevated at 6.2, lipase 985. Urinalysis shows 30 protein. Radiology studies were reviewed and remarkable for Last Impressions Abdomen/Pelvis CT 08/08/172050 Signed Impressions: CONCLUSION: 1. No acute finding is identified to explain the upper abdominal pain. 2. The retroperitoneal soft tissue nodules documented on prior PET CT are no l onger seen. The right adrenal gland mass which was felt to represent a metastat ic lesion on prior examination has decreased in size. 3. Stable postsurgical changes in the lumbar spine for treatment of a compress ion fracture of L3. 4. Stable expansile partially lytic lesion of the left sacrum. Chest X-Ray 08/08/171915 Signed Impressions: CONCLUSION: No acute cardiopulmonary abnormality is identified. The patient will be admitted to the hospital with acute pancreatitis and diarrhea possibly medication related. The patient's results were discussed with the patient, including the plan of care. I explained that further testing and/ or monitoring is indicated based on the patient's history, examination, and/ or laboratory findings. Therefore, I recommended admission for additional evaluation. The patient expressed understanding and was agreeable with this plan. The patient was admitted to the hospital in stable condition and sent to a bed under the care of Dr. Ty. [facility] Point of Care Internal Pos. & Neg. Controls: Passed Fecal Specimen Occult Blood: Positive Physician Communication Physician Communication The patient's case including history, pertinent physical examination findings, and laboratory studies were discussed with Edna, working under Dr. Ty. It was agreed that the patient would be admitted to Dr. Ty's service. Diagnosis Primary Impression: Pancreatitis Qualified Codes: K85.90 - Acute pancreatitis without necrosis or infection, unspecified Additional Impression: Diarrhea Qualified Codes: R19.7 - Diarrhea, unspecified Admitting Information Admitting Physician Requests: Admit Rosalva Naranjo MD Aug 08, 2017 19:47
[2017-08-08 20:10] LABS: BILIRUBIN, URINE NEG (NEG); BLOOD, URINE NEG (NEG); GLUCOSE,URINE NEG (NEG); KETONE, URINE NEG (NEG); MUCUS URINE MANY /lpf (OCC); NITRITE,URINE NEG (NEG); URINE COLOR Amber (YELLW/STRAW); URINE LEUKOCYTE ESTERASE NEG (NEG)
[2017-08-08 20:12] LABS: AUTOMATED NEUTROPHIL # 6.3 TH/MM3 (1.8-7.7); BASOPHIL % 0.3 % (0.0-2.0); EOSINOPHIL # 0.1 TH/MM3 (0-0.4); EOSINOPHIL % 0.6 % (0.0-4.0); HEMATOCRIT 38.7 % (39.0-51.0); HEMOGLOBIN 13.3 GM/DL (13.0-17.0); LYMPH % 6.4 % (9.0-44.0); LYMPHOCYTE # 0.6 TH/MM3 (1.0-4.8); MEAN CELL VOLUME 94.2 FL (80.0-100.0); MEAN CORPUSCULAR HEMOGLOBIN 32.4 PG (27.0-34.0); MEAN CORPUSCULAR HGB CONC 34.4 % (32.0-36.0); MEAN PLATELET VOLUME 7.4 FL (7.0-11.0); MONO % 20.1 % (0.0-8.0); MONOCYTE # 1.7 TH/MM3 (0-0.9); NEUT % 72.6 % (16.0-70.0); PLATELET COUNT 289 TH/MM3 (150-450); RED BLOOD COUNT 4.11 MIL/MM3 (4.50-5.90); RED CELL DISTRIBUTION WIDTH 12.4 % (11.6-17.2); WHITE BLOOD COUNT 8.7 TH/MM3 (4.0-11.0)
[2017-08-08 20:25] LABS: ALBUMIN 3.1 GM/DL (3.4-5.0); AST (GOT) 14 U/L (15-37); BICARBONATE 20.8 MEQ/L (21.0-32.0); BLOOD UREA NITROGEN 19 MG/DL (7-18); CALCIUM 9.6 MG/DL (8.5-10.1); CHLORIDE 105 MEQ/L (98-107); CREATININE 1.64 MG/DL (0.60-1.30); GLOMERULAR FILTRATION RATE 42 ML/MIN (>89); GLUCOSE,RANDOM 129 MG/DL (74-106); MAGNESIUM 1.5 MG/DL (1.5-2.5); SODIUM (NA) 135 MEQ/L (136-145)
[2017-08-08 20:28] LABS: ALKALINE PHOSPHATASE 105 U/L (45-117); ALT (GPT) 21 U/L (12-78); TOTAL BILIRUBIN ADULT 0.4 MG/DL (0.2-1.0); TOTAL PROTEIN 7.4 GM/DL (6.4-8.2)
--- NOTE | 2017-08-08 20:37 | RADRPT ---
EXAM DATE: 08/08/2017 7:43 PM EDT AGE/SEX: 71 years / Male INDICATIONS: Nausea, vomiting, diarrhea. CLINICAL DATA: This is the patient's initial encounter. Patient reports that signs and symptoms have been present for 1 week and indicates a pain score of 0/10. MEDICAL/SURGICAL HISTORY: Hypertension. Renal cell carcinoma. None. COMPARISON: [facility], CHEST SINGLE AP, 01/21/2017. . FINDINGS: Portable AP view of the chest demonstrates a normal-sized cardiac silhouette. There is a stable calci fied granuloma in the left midlung zone. No pleural effusion, airspace consolidation, or pneumothorax is identified. The bones and soft tissues demonstrate no acute abnormality. CONCLUSION: No acute cardiopulmonary abnormality is identified. Electronically signed by: Elias Tyler MD 08/08/2017 8:36 PM EDT
[2017-08-08] MEDS ORDERED: SODIUM CHLORIDE 0.9% FLUSH 10 ML FLUSH IV FLUSH PRN (21:15)
[2017-08-08] MEDS ORDERED: LACTULOSE SYRUP 20 GM/30 ML CUP PO PRN (21:15)
[2017-08-08] MEDS ORDERED: BISACODYL 10 MG SUPP RECTAL PRN (21:15)
[2017-08-08] MEDS ORDERED: MAGNESIUM HYDROXIDE SUSP 30 ML CUP PO PRN (21:15)
[2017-08-08] MEDS ORDERED: SENNOSIDES 8.6 MG TAB PO PRN (21:15)
[2017-08-08] MEDS ORDERED: ACETAMINOPHEN 325 MG TAB PO PRN (21:15)
[2017-08-08] MEDS ORDERED: NALOXONE HCL 0.4 MG/ML AMP IV PUSH PRN (21:15)
[2017-08-08] MEDS ORDERED: METOCLOPRAMIDE HCL 10 MG/2 ML VIAL IV PUSH PRN (21:15)
--- NOTE | 2017-08-08 22:26 | RADRPT ---
EXAM DATE: 08/08/2017 9:27 PM EDT AGE/SEX: 71 years / Male INDICATIONS: Upper abdomen pain. CLINICAL DATA: This is the patient's initial encounter. Patient reports that signs and symptoms have been present for 1 day and indicates a pain score of 5/10. MEDICAL/SURGICAL HISTORY: Renal cell carcinoma. . Nephrectomy. RADIATION DOSE: 9.96 CTDI (mGy) COMPARISON: PET/CT dated 05/24/2017.. TECHNIQUE: Multiple contiguous axial images were obtained through the abdomen. Images were obtained using multiple row detector helical technique. Using automated exposure control and adjustment of the mA and/or kV according to patient size, radiation dose was kept as low as reasonably achievable to o btain optimal diagnostic quality images. DICOM format image data is available electronically for rev iew and comparison. FINDINGS: Lower chest: No acute abnormality is identified. Hepatobiliary: No liver lesion is seen on this noncontrast examination. No calcified gallstones are p resent. Gallbladder is distended. There is no bile duct dilatation. Kidneys: Right kidney is surgically absent with clips in the right renal fossa. The retroperitoneal s oft tissue nodules described on prior PET/CT are not seen. Left kidney demonstrates no mass or hydron ephrosis. There is a 3 mm nonobstructing left renal stone. Adrenal Glands: Left adrenal gland is normal. There is a 12 mm nodule in the right adrenal gland, dec reased in size from the prior study when it measured 1.8 cm. Spleen: Within normal limits. Pancreas: Within normal limits. Vascular: The aorta is nonaneurysmal. There is moderate atherosclerotic disease. Bowel/Mesentery: The stomach and small bowel demonstrate no abnormality. No acute colon abnormality i s seen. There is no free intraperitoneal air or fluid. Abdominal Wall: No hernia is visualized. Retroperitoneum: The nodules in the right retroperitoneum are not appreciated. No other lymphadenopat hy is seen. Bladder: No wall thickening or mass. Reproductive: Within normal limits. Inguinal: No lymphadenopathy or hernia. Musculoskeletal: There is a compression fracture of the L3 vertebral body that has been treated with posterior decompression laminectomy and posterior fusion at L2-L4. Expansile partially lucent lesion arising from the left sacrum measures 5.3 x 4.5 cm, stable from the prior study. CONCLUSION: 1. No acute finding is identified to explain the upper abdominal pain. 2. The retroperitoneal soft tissue nodules documented on prior PET CT are no longer seen. The right adrenal gland mass which was felt to represent a metastatic lesion on prior examination has decreased in size. 3. Stable postsurgical changes in the lumbar spine for treatment of a compression fracture of L3. 4. Stable expansile partially lytic lesion of the left sacrum. Electronically signed by: Elias Tyler MD 08/08/2017 10:24 PM EDT
[2017-08-08] MEDS: SODIUM CHLOR 0.9% 1000 ML INJ 1,000 ML IV SCH (22:30)
[2017-08-08 23:30] VITALS: BP 117/61; PULSE 18; PULSE 81; RESP 18; TEMP 99; O2SAT 99
[2017-08-09] MEDS: HEPARIN SODIUM - SQ 10,000 UNITS/ML VIAL SQ SCH ×2 (01:00→10:12)
[2017-08-09 05:05] VITALS: BP 112/66; PULSE 82; RESP 18; TEMP 99.1; O2SAT 98
[2017-08-09 06:32] LABS: AUTOMATED NEUTROPHIL # 4.4 TH/MM3 (1.8-7.7); BASOPHIL % 0.3 % (0.0-2.0); EOSINOPHIL # 0.1 TH/MM3 (0-0.4); EOSINOPHIL % 0.9 % (0.0-4.0); HEMATOCRIT 33.3 % (39.0-51.0); HEMOGLOBIN 11.6 GM/DL (13.0-17.0); LYMPH % 6.2 % (9.0-44.0); LYMPHOCYTE # 0.4 TH/MM3 (1.0-4.8); MEAN CELL VOLUME 93.8 FL (80.0-100.0); MEAN CORPUSCULAR HEMOGLOBIN 32.6 PG (27.0-34.0); MEAN CORPUSCULAR HGB CONC 34.7 % (32.0-36.0); MEAN PLATELET VOLUME 6.8 FL (7.0-11.0); MONO % 20.2 % (0.0-8.0); MONOCYTE # 1.2 TH/MM3 (0-0.9); NEUT % 72.4 % (16.0-70.0); PLATELET COUNT 203 TH/MM3 (150-450); RED BLOOD COUNT 3.55 MIL/MM3 (4.50-5.90); RED CELL DISTRIBUTION WIDTH 12.6 % (11.6-17.2)
[2017-08-09 06:52] LABS: BICARBONATE 21.7 MEQ/L (21.0-32.0); CALCIUM 9.1 MG/DL (8.5-10.1); CREATININE 1.42 MG/DL (0.60-1.30)
[2017-08-09] MEDS ORDERED: POLYSACCHARIDE IRON COMPLEX 150 MG CAP PO SCH (09:00)
[2017-08-09] MEDS ORDERED: TESTOSTERONE TOPICAL SCH (09:00)
[2017-08-09] MEDS ORDERED: SODIUM CHLORIDE 0.9% FLUSH 10 ML FLUSH IV FLUSH SCH (09:00)
[2017-08-09] MEDS ORDERED: FINASTERIDE 5 MG TAB PO SCH (09:00)
[2017-08-09 12:00] VITALS: BP 132/69; PULSE 65; RESP 17; TEMP 97.6; O2SAT 96
[2017-08-09] MEDS: SODIUM CHLOR 0.9% 1000 ML INJ 1,000 ML IV SCH (13:23)
--- NOTE | 2017-08-09 14:27 | HHI.HP ---
History of Present Illness Primary Care Physician Tushar Ty, DO Admission Diagnosis Pancreatitis, Diarrhea, dehydration Diagnoses: History of Present Illness The patient is a 71 year old male who presents to the [facility] emergency department the patient reports that over the last week he has had progressively worsening diarrhea. He reports that he has had diarrhea 10-15 times per day. He reports he has had darkening of his stool. He reports having continued nausea since Tuesday, however no vomiting and No appetite. 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 The patient is undergoing chemotherapy and radiation therapy. The patient is now on immune no therapy. His oncologist is Dr. Benz. He was found to have elevated Lipase 985, renal functions elevated with creatinine 1.6. Occult stool positive, likely related to Irritation of rectum. Stool studies negative. He currently denies NV or diarrhea. Review of Systems Except as stated in HPI: all other systems reviewed are Neg Past Family Social History Allergies: Coded Allergies: No Known Allergies (Verified Allergy, Mild, 03/08/17) Past Medical History Renal cancer HTN Prediabetes Past Surgical History Left knee surgery Right knee surgery Right nephrectomy L3 laminectomy Reported Medications Gnp Senna Plus 8.6-50 mg (Sennosides-Docusate Sodium) 8.6 Mg-50 Mg Tab 1 Tab PO BID 30 Days Poly-Iron 150 (Polysaccharide Iron Complex) 150 Mg Iron Cap 150 Mg PO Q12HR 30 Days Eq Acetaminophen (Acetaminophen) 325 Mg Tab 650 Mg PO Q4H PRN MDD 2000mg 30 Days Pantoprazole (Pantoprazole Sodium) 40 Mg Tab 40 Mg PO DAILY 30 Days Finasteride 5 Mg Tab 5 Mg PO DAILY 30 Days Do not crush. Atorvastatin (Atorvastatin Calcium) 20 Mg Tab 20 Mg PO HS 30 Days Testosterone 25 Mg/2.5 Gram (1 %) Gel.packet 1 Applic T-DERMAL DAILY Active Ordered Medications Current Medications Medications (Trade) Dose Ordered Sig/Brianna Route Start Time Stop Time Status Last Admin Sodium Chloride 1,000 ml @ 100 mls/hr Q10H IV 08/08/17 21:05 08/09/17 13:23 (NS Flush) 2 ml UNSCH PRN IV FLUSH 08/08/17 21:15 (NS Flush) 2 ml BID IV FLUSH 08/09/17 09:00 08/09/17 10:12 (Tylenol) 650 mg Q4H PRN PO 08/08/17 21:15 (Reglan Inj) 5 mg Q6H PRN IV PUSH 08/08/17 21:15 (Heparin Inj) 5,000 units Q12H SQ 08/08/17 22:00 08/09/17 10:12 (Narcan Inj) 0.4 mg UNSCH PRN IV PUSH 08/08/17 21:15 (Milk Of Magnesia Liq) 30 ml Q12H PRN PO 08/08/17 21:15 (Senokot) 17.2 mg Q12H PRN PO 08/08/17 21:15 (Dulcolax Supp) 10 mg DAILY PRN RECTAL 08/08/17 21:15 (Lactulose Liq) 30 ml DAILY PRN PO 08/08/17 21:15 (Lipitor) 20 mg HS PO 08/09/17 21:00 (Proscar) 5 mg DAILY PO 08/09/17 09:00 08/09/17 10:11 (Nu-Iron) 150 mg Q12HR PO 08/09/17 09:00 08/09/17 10:11 Patient Own Medication PT OWN MED: Testosterone 1 APPLIC DAILY TOPICAL 08/09/17 09:00 Social History Occasional etoh Former smoker Denies Substance abuse Physical Exam Vital Signs Vital Signs Date Time Temp Pulse Resp B/P (MAP) Pulse Ox O2 Delivery O2 Flow Rate FiO2 08/09/17 12:00 97.6 65 17 132/69 (90) 96 08/09/17 05:05 99.1 82 18 112/66 (81) 98 08/08/17 23:30 99.0 81 18 117/61 (79) 99 08/08/17 22:45 08/08/17 18:44 98.0 77 15 135/69 (91) 99 Physical Exam GENERAL: This is a well-nourished, well-developed patient, in no apparent distress. SKIN: No rashes, ecchymoses or lesions. Cool and dry. HEAD: Atraumatic. Normocephalic. No temporal or scalp tenderness. EYES: Pupils equal round and reactive. ENT: Nose without bleeding, Airway patent. NECK: Supple, nontender, no meningeal signs. CARDIOVASCULAR: Regular rate and rhythm without murmurs, gallops, or rubs. RESPIRATORY: Clear to auscultation. Breath sounds equal bilaterally. No wheezes , rales, or rhonchi. GASTROINTESTINAL: Abdomen soft, non-tender, nondistended. No hepato-splenomegaly , or palpable masses. No guarding. MUSCULOSKELETAL: Extremities without clubbing, cyanosis, or edema. No joint tenderness, effusion, or edema noted. No calf tenderness. Negative Homans sign bilaterally. NEUROLOGICAL: Awake and alert. Cranial nerves II through XII intact Normal speech. Laboratory Laboratory Tests Test 08/08/17 19:30 08/09/17 06:05 White Blood Count 8.7 6.0 Red Blood Count 4.11 3.55 Hemoglobin 13.3 11.6 Hematocrit 38.7 33.3 Mean Corpuscular Volume 94.2 93.8 Mean Corpuscular Hemoglobin 32.4 32.6 Mean Corpuscular Hemoglobin Concent 34.4 34.7 Red Cell Distribution Width 12.4 12.6 Platelet Count 289 203 Mean Platelet Volume 7.4 6.8 Neutrophils (%) (Auto) 72.6 72.4 Lymphocytes (%) (Auto) 6.4 6.2 Monocytes (%) (Auto) 20.1 20.2 Eosinophils (%) (Auto) 0.6 0.9 Basophils (%) (Auto) 0.3 0.3 Neutrophils # (Auto) 6.3 4.4 Lymphocytes # (Auto) 0.6 0.4 Monocytes # (Auto) 1.7 1.2 Eosinophils # (Auto) 0.1 0.1 Basophils # (Auto) 0.0 0.0 CBC Comment DIFF FINAL DIFF FINAL Differential Comment Urine Color Georgina Urine Turbidity HAZY Urine pH 5.0 Urine Specific Alma 1.027 Urine Protein 30 Urine Glucose (UA) NEG Urine Ketones NEG Urine Occult Blood NEG Urine Nitrite NEG Urine Bilirubin NEG Urine Urobilinogen LESS THAN 2 Urine Leukocyte Esterase NEG Urine RBC 3 Urine WBC 1 Urine Mucus MANY Microscopic Urinalysis Comment CULT NOT INDICATED Stool C. difficile Toxin (PCR) NEGATIVE Stl C. difficile Toxin Epiderm 027 PRESUMPTIVE NEGATIVE Blood Urea Nitrogen 19 17 Creatinine 1.64 1.42 Random Glucose 129 121 Total Protein 7.4 Albumin 3.1 Calcium Level 9.6 9.1 Magnesium Level 1.5 Alkaline Phosphatase 105 Aspartate Amino Transf (AST/SGOT) 14 Alanine Aminotransferase (ALT/SGPT) 21 Total Bilirubin 0.4 Sodium Level 135 138 Potassium Level 3.6 3.5 Chloride Level 105 108 Carbon Dioxide Level 20.8 21.7 Anion Gap 9 8 Estimat Glomerular Filtration Rate 42 49 C-Reactive Protein 6.20 Lipase 985 1279 Amylase Level 74 Date/Time Source Procedure Growth Status 08/08/17 19:30 Stool Stool Stool Pus (OLAMIDE) - Final NO WBC'S SEEN Complete Result Diagram: 08/09/1760408/09/17 06 Imaging Last Impressions Abdomen/Pelvis CT 08/08/172050 Signed Impressions: CONCLUSION: 1. No acute finding is identified to explain the upper abdominal pain. 2. The retroperitoneal soft tissue nodules documented on prior PET CT are no l onger seen. The right adrenal gland mass which was felt to represent a metastat ic lesion on prior examination has decreased in size. 3. Stable postsurgical changes in the lumbar spine for treatment of a compress ion fracture of L3. 4. Stable expansile partially lytic lesion of the left sacrum. Chest X-Ray 08/08/171915 Signed Impressions: CONCLUSION: No acute cardiopulmonary abnormality is identified. Caprini VTE Risk Assessment Caprini VTE Risk Assessment: Mod/High Risk (score >= 2) Caprini Risk Assessment Model Point Value = 1 Point Value = 2 Point Value = 3 Point Value = 5 Age 41-60 Minor surgery BMI > 25 kg/m2 Swollen legs Varicose veins or History of unexplained or recurrent spontaneous Oral contraceptives or hormone replacement Sepsis (< 1 month) Serious lung disease, including pneumonia (< 1 month) Abnormal pulmonary function Acute myocardial infarction Congestive heart failure (< 1 month) History of inflammatory bowel disease Medical patient at bed rest Age 61-74 Arthroscopic surgery Major open surgery (> 45 min) Laparoscopic surgery (> 45 min) Malignancy Confined to bed (> 72 hours) Immobilizing plaster cast Central venous access Age >= 75 History of VTE Family history of VTE Factor V Leiden Prothrombin [id number] Lupus anticoagulant Anticardiolipin antibodies Elevated serum homocysteine Heparin-induced thrombocytopenia Other congenital or acquired thrombophilia Stroke (< 1 month) Elective arthroplasty Hip, pelvis, or leg fracture Acute spinal cord injury (< 1 month) Prophylaxis Regimen Total Risk Factor Score Risk Level Prophylaxis Regimen 0-1 Low Early ambulation 2 Moderate Order ONE of the following: *Sequential Compression Device (SCD) *Heparin 5000 units SQ BID 3-4 Higher Order ONE of the following medications: *Heparin 5000 units SQ TID *Enoxaparin/Lovenox 40 mg SQ daily (WT < 150 kg, CrCl > 30 mL/min) *Enoxaparin/Lovenox 30 mg SQ daily (WT < 150 kg, CrCl > 10-29 mL/min) *Enoxaparin/Lovenox 30 mg SQ BID (WT < 150 kg, CrCl > 30 mL/min) AND/OR *Sequential Compression Device (SCD) 5 or more Highest Order ONE of the following medications: *Heparin 5000 units SQ TID (Preferred with Epidurals) *Enoxaparin/Lovenox 40 mg SQ daily (WT < 150 kg, CrCl > 30 mL/min) *Enoxaparin/Lovenox 30 mg SQ daily (WT < 150 kg, CrCl > 10-29 mL/min) *Enoxaparin/Lovenox 30 mg SQ BID (WT < 150 kg, CrCl > 30 mL/min) AND *Sequential Compression Device (SCD) Assessment and Plan Problem List: (1) Pancreatitis ICD Codes: K85.90 - Acute pancreatitis without necrosis or infection, unspecified Plan: IVF npo, advance as tolerated clear liq (2) HTN (hypertension) ICD Codes: I10 - Essential (primary) hypertension Status: Chronic Plan: Monitor Cont home medications. (3) BPH (benign prostatic hyperplasia) ICD Codes: N40.0 - Benign prostatic hyperplasia without lower urinary tract symptoms Status: Chronic Plan: Cont home medications. (4) Metastatic renal cell carcinoma to bone ICD Codes: C79.51 - Secondary malignant neoplasm of bone; C64.9 - Malignant neoplasm of unspecified kidney, except renal pelvis Status: Acute Plan: S/P nephrectomy, monitor Renal functions, avoid toxins Edna Barahona Aug 09, 2017 14:27
[2017-08-09 16:00] VITALS: BP 138/74; PULSE 66; RESP 18; TEMP 97.6; O2SAT 97
--- NOTE | 2017-08-09 17:39 | HHI.DS ---
Discharge Summary Admission Date Aug 08, 2017 at 20:53 Admitting Diagnosis Pancreatitis, Diarrhea, dehydration Brief History The patient is a 71 year old male who presents to the [facility] emergency department the patient reports that over the last week he has had progressively worsening diarrhea. He reports that he has had diarrhea 10-15 times per day. He reports he has had darkening of his stool. He reports having continued nausea since Tuesday, however no vomiting and No appetite. 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 The patient is undergoing chemotherapy and radiation therapy. The patient is now on immune no therapy. His oncologist is Dr. Benz. He was found to have elevated Lipase 985, renal functions elevated with creatinine 1.6. Occult stool positive, likely related to Irritation of rectum. Stool studies negative. He currently denies NV or diarrhea. CBC/BMP: 08/09/17 0605 08/09/17 0605 Significant Findings Laboratory Tests Test 08/08/17 19:30 08/09/17 06:05 Red Blood Count 4.11 MIL/MM3 (4.50-5.90) 3.55 MIL/MM3 (4.50-5.90) Hematocrit 38.7 % (39.0-51.0) 33.3 % (39.0-51.0) Neutrophils (%) (Auto) 72.6 % (16.0-70.0) 72.4 % (16.0-70.0) Lymphocytes (%) (Auto) 6.4 % (9.0-44.0) 6.2 % (9.0-44.0) Monocytes (%) (Auto) 20.1 % (0.0-8.0) 20.2 % (0.0-8.0) Lymphocytes # (Auto) 0.6 TH/MM3 (1.0-4.8) 0.4 TH/MM3 (1.0-4.8) Monocytes # (Auto) 1.7 TH/MM3 (0-0.9) 1.2 TH/MM3 (0-0.9) Urine Turbidity HAZY (CLEAR) Urine Protein 30 mg/dL (NEG-TRACE) Urine Mucus MANY /lpf (OCC) Blood Urea Nitrogen 19 MG/DL (7-18) Creatinine 1.64 MG/DL (0.60-1.30) 1.42 MG/DL (0.60-1.30) Random Glucose 129 MG/DL (74-106) 121 MG/DL (74-106) Albumin 3.1 GM/DL (3.4-5.0) Aspartate Amino Transf (AST/SGOT) 14 U/L (15-37) Sodium Level 135 MEQ/L (136-145) Carbon Dioxide Level 20.8 MEQ/L (21.0-32.0) Estimat Glomerular Filtration Rate 42 ML/MIN (>89) 49 ML/MIN (>89) C-Reactive Protein 6.20 MG/DL (0.00-0.30) Lipase 985 U/L (73-393) 1279 U/L (73-393) Hemoglobin 11.6 GM/DL (13.0-17.0) Mean Platelet Volume 6.8 FL (7.0-11.0) Chloride Level 108 MEQ/L (98-107) Hospital Course Admitted for abdominal pain and nausea. Lipase elevated, treated with IVF Npo- diet advanced to clear. No Nausea or vomiting x 24 hours, patient wants to go home. Will dc home on Clear liquid diet, advance diet as tolerated. FU in Pcp office tomorrow at 1515. Last Impressions Abdomen/Pelvis CT 08/08/172050 Signed Impressions: CONCLUSION: 1. No acute finding is identified to explain the upper abdominal pain. 2. The retroperitoneal soft tissue nodules documented on prior PET CT are no l onger seen. The right adrenal gland mass which was felt to represent a metastat ic lesion on prior examination has decreased in size. 3. Stable postsurgical changes in the lumbar spine for treatment of a compress ion fracture of L3. 4. Stable expansile partially lytic lesion of the left sacrum. Chest X-Ray 08/08/171915 Signed Impressions: CONCLUSION: No acute cardiopulmonary abnormality is identified. Pt Condition on Discharge: Good Discharge Disposition: Discharge Home Discharge Instructions DIET: Follow Instructions for: Clear Liquid Diet (advance to full) Activities you can perform: Regular-No Restrictions Follow up Referrals: PCP Follow-up - 1 Month with Tushar Ty DO 08/10/17 at 3:15 pm Continued Medications: Acetaminophen (Eq Acetaminophen) 325 Mg Tab 650 MG PO Q4H PRN for PAIN SCALE 1 TO 2 MDD 2000mg for 30 Days, #360 TAB Atorvastatin (Atorvastatin) 20 Mg Tab 20 MG PO HS for Cholesterol Management for 30 Days, #30 TAB 0 Refills Finasteride (Finasteride) 5 Mg Tab 5 MG PO DAILY for Manage Prostate Problems for 30 Days, #30 TAB 0 Refills Do not crush. Pantoprazole (Pantoprazole) 40 Mg Tab 40 MG PO DAILY for Reflux for 30 Days, #30 TAB 0 Refills Polysaccharide Iron Complex (Poly-Iron 150) 150 Mg Iron Cap 150 MG PO Q12HR for Nutritional Supplement for 30 Days, CAP Sennosides-Docusate Sodium (Gnp Senna Plus 8.6-50 mg) 8.6 Mg-50 Mg Tab 1 TAB PO BID for Constipation for 30 Days, TAB Testosterone (Testosterone) 25 Mg/2.5 Gram (1 %) Gel.packet 1 APPLIC T-DERMAL DAILY Additional Information Clear liquid diet, advance as tolerated. Fu in office tomorrow 08/10/17 at 3:15 pm Edna Barahona Aug 09, 2017 17:39
[2017-08-09 20:04] VITALS: BP 150/73; PULSE 65; RESP 16; TEMP 98.5; O2SAT 98
[2017-08-09] MEDS ORDERED: ATORVASTATIN 20 MG TAB PO SCH (21:00)
== END 2017-08-09 20:30 | disposition home or self-care (01) | DRG 439 ==
LOC: NEPC 18:35 → NEDA 20:53 → NEPHCDU 22:41
PROVIDERS: ADMIT Family Medicine; ATTEND Family Medicine
DX: K85.90 Acute pancreatitis without necrosis or infection, unspecified (principal); C79.51 Secondary malignant neoplasm of bone; R19.7 Diarrhea, unspecified; N40.0 Benign prostatic hyperplasia without lower urinary tract symptoms; K21.9 Gastro-esophageal reflux disease without esophagitis; I10 Essential (primary) hypertension; E78.5 Hyperlipidemia, unspecified; R73.03 Prediabetes; Z85.528 Personal history of other malignant neoplasm of kidney; Z90.5 Acquired absence of kidney
CPT/HCPCS: 71045; 74176; 80048; 80053; 81001; 82150; 83690; 83735; 85025; 86140; 87205; 87493; 87506; J1644; J7030

== ENCOUNTER 2017-08-12 17:52 | Inpatient (IN) ==
[2017-08-14] MEDS ORDERED: Naloxone Inj 0.4 MG/ML Vial IV.PUSH PRN (00:01)
[2017-08-14] MEDS ORDERED: Bisacodyl 10 MG Supp RECTAL PRN (00:01)
[2017-08-14] MEDS ORDERED: Acetaminophen 325 MG Tablet PO PRN ×2 (00:01)
[2017-08-14] MEDS: Sodium Chloride 0.45 % Inj 1,000 ML IV.CONT SCH ×3 (04:39→21:18)
[2017-08-14] MEDS ORDERED: MethylPREDNISolone Sod Succinate Inj 40 MG/ML Vial IV.PUSH SCH ×2 (09:00→21:00)
[2017-08-14] MEDS: Finasteride 5 MG Tablet PO SCH (09:15)
--- NOTE | 2017-08-14 10:04 | P.PNONC ---
Subjective Interval history: Afebrile Patient denies trouble sleeping Reports having had 3-4 bowel movements since midnight Feels that his stools are somewhat firming since he started a regular diet Wants to take a shower No other acute complaints Objective Vital Signs/Intake & Output: Vital Signs 08/14/17 00:02 08/14/17 03:57 08/14/17 04:30 Temperature 97.6 F Pulse Rate 69 63 66 Respiratory Rate 17 Blood Pressure 148/84 H Pulse Oximetry 98 08/14/17 09:25 08/14/17 09:32 Temperature 97.4 F L Pulse Rate 65 79 Respiratory Rate 20 Blood Pressure 157/90 H Pulse Oximetry 99 Intake & Output 08/13/17 08/14/17 08/14/17 18:59 06:59 18:59 Intake Total 240 / 240 Balance 240 / 240 Weight 149 lb 14.629 oz Intake: Oral 240 / 240 Other: # Voids 2 Date of Last Bowel Movement 08/14/17 08/14/17 # Bowel Movements 5 Result Diagrams: 08/13/17 05:20 08/13/17 05:20 Laboratory Results: Laboratory Results - last 24 hr 08/12/17 08/12/17 08/13/17 18:15 18:15 05:20 WBC 10.3 RBC 4.41 L Hgb 14.1 Hct 41.1 MCV 93.4 MCH 32.0 MCHC 34.3 RDW 12.8 Plt Count 318 D MPV 6.9 L Neut % (Auto) 75.2 H Lymph % (Auto) 6.1 L Tucker % (Auto) 17.9 H Eos % (Auto) 0.4 Baso % (Auto) 0.4 Neut # (Auto) 7.7 Lymph # (Auto) 0.6 L Tucker # (Auto) 1.8 H Eos # (Auto) 0.0 Baso # (Auto) 0.0 CBC Comment AUTO DIFF Total Counted 100 Neutrophils % (Manual) 42 Band Neutrophils % 27 H Lymphocytes % 6 L Monocytes % 20 H Other Cells % 1 Neutrophils # (Manual) 7.5 Metamyelocytes 2 H Myelocytes Promyelocytes 2 H Differential Comment FINAL DIFF MANUAL Toxic Granulation 1+ H Platelet Estimate NORMAL Plt Morphology Comment NORMAL Sodium 133 L 136 Potassium 3.2 L 3.7 Chloride 103 107 Carbon Dioxide 17.0 L 17.0 L Anion Gap 13 12 BUN 16 21 H Creatinine 1.76 H 1.56 H Estimated GFR 39 L 44 L Random Glucose 106 159 H Calcium 11.3 H 10.3 H D Total Bilirubin 0.5 0.3 AST 17 11 L ALT 25 20 Alkaline Phosphatase 113 92 Total Protein 7.6 6.1 L D Albumin 3.2 L 2.6 L D Lipase 843 H Stl C.difficile Tox PCR St C. diff Tox Epid 027 08/13/17 08/13/17 05:20 08:40 WBC 5.1 D RBC 3.78 L Hgb 12.1 L D Hct 35.5 L MCV 93.8 MCH 32.1 MCHC 34.2 RDW 12.6 Plt Count 222 D MPV 7.1 Neut % (Auto) 90.1 H Lymph % (Auto) 5.2 L Tucker % (Auto) 4.6 Eos % (Auto) 0.0 Baso % (Auto) 0.1 Neut # (Auto) 4.6 Lymph # (Auto) 0.3 L Tucker # (Auto) 0.2 Eos # (Auto) 0.0 Baso # (Auto) 0.0 CBC Comment AUTO DIFF Total Counted 100 Neutrophils % (Manual) 73 H Band Neutrophils % 21 H Lymphocytes % 3 L Monocytes % 2 Other Cells % Neutrophils # (Manual) 4.8 Metamyelocytes Myelocytes 1 H Promyelocytes Differential Comment FINAL DIFF MANUAL Toxic Granulation 1+ H Platelet Estimate NORMAL Plt Morphology Comment NORMAL Sodium Potassium Chloride Carbon Dioxide Anion Gap BUN Creatinine Estimated GFR Random Glucose Calcium Total Bilirubin AST ALT Alkaline Phosphatase Total Protein Albumin Lipase Stl C.difficile Tox PCR NEGATIVE St C. diff Tox Epid 027 PRESUMPTIVE NEGATIVE Medications: Active Medications Generic Name Dose Route Start Last Admin Trade Name Freq PRN Reason Stop Dose Admin Finasteride 5 mg 08/14/17 09:00 08/14/17 09:15 Proscar PO 5 mg DAILY LASHONDA Administration Sodium Chloride 1,000 mls @ 100 mls/hr 08/14/17 01:00 08/14/17 04:39 1/2 Normal Saline Inj IV.CONT 100 mls/hr .Q10H LASHONDA Administration Methylprednisolone Sodium Succinate 40 mg 08/14/17 09:00 08/14/17 09:14 Solu-Medrol Inj IV.PUSH 40 mg DAILY LASHONDA Administration Pantoprazole Sodium 40 mg 08/14/17 09:00 08/14/17 09:15 Protonix PO 40 mg DAILY LASHONDA Administration Vitamin D 1,000 unit 08/14/17 09:00 08/14/17 09:15 Vitamin D3 PO 1,000 unit DAILY LASHONDA Administration Objective Remarks: GENERAL: Older male resting in bed in no obvious distress. He is smiling and engages in easy conversation. SKIN: Warm and dry. HEAD: Normocephalic. EYES: No injection or drainage. NECK: Supple, trachea midline. CARDIOVASCULAR: Regular rate and rhythm without murmurs. RESPIRATORY: Breath sounds equal bilaterally. No accessory muscle use. GASTROINTESTINAL: Abdomen soft, non-tender, nondistended. EXTREMITIES: No cyanosis, or edema. MUSCULOSKELETAL: Adequate muscle tone. NEUROLOGICAL: No obvious focal deficit. Awake, alert, and oriented x3. 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 After surgery he developed symptoms of metastatic disease. He received postoperative radiation of the lumbar spine and was treated with Votrient. Unfortunately he had rapid progression of disease and most recently has been on combination therapy with nivolumab and ipilimumab. He received 4 doses with his most recent being on August 05. He presented with significant diarrhea reporting up to 25-30 bowel movements per day. He was admitted and started on IV Solu-Medrol to reverse the effects of the immunotherapy, causing the colitis. 1. Continue Solu-Medrol at dosing of 40 mg twice daily 2. Monitor diarrhea 3. Continue IV fluids, supportive care - Attending Statement The exam, history, and the medical decision-making described in the above note were completed with the assistance of the mid-level provider. I reviewed and agree with the findings presented. I attest that I had a [id number] encounter with the patient on the same day, and personally performed and documented my assessment and findings in the medical record. 71 yoM with metastatic RCC currently being treated with dual immunotherapy with nivolumab and ipilimumab. Admitted with immune related side effect of colitis. 30 BM per day decreased to 12 yesterday. Continue with solumedrol 40mg IV BID. Will continue to monitor clinical status and BM.
[2017-08-14] MEDS: Senna/Docusate Sodium 8.6/50 MG Tablet PO SCH ×2 (11:55→21:19)
[2017-08-14] MEDS: TESTOSTERONE TOPICAL SCH (11:56)
--- NOTE | 2017-08-14 14:32 | P.PNFP ---
Subjective Interval history: Diarrhea better on SM for colitis reaction to immunomodulator treatment for metastatic RCC. Results - Labs Result diagrams: 08/13/17 05:20 08/13/17 05:20 Abnormal lab results 08/12/17 08/12/17 08/13/17 Range/Units 18:15 18:15 05:20 RBC 4.41 L (4.50-5.90) MIL/MM3 Hgb (13.0-17.0) GM/DL Hct (39.0-51.0) % MPV 6.9 L (7.0-11.0) FL Neut % (Auto) 75.2 H (16.0-70.0) % Lymph % (Auto) 6.1 L (9.0-44.0) % Hendry % (Auto) 17.9 H (0.0-8.0) % Lymph # (Auto) 0.6 L (1.0-4.8) TH/MM3 Hendry # (Auto) 1.8 H (0-0.9) TH/MM3 Neutrophils % (Manual) (16-70) % Band Neutrophils % 27 H (0-6) % Lymphocytes % 6 L (9-44) % Monocytes % 20 H (0-8) % Metamyelocytes 2 H (0-1) % Myelocytes (0-0) % Promyelocytes 2 H (0-0) % Toxic Granulation 1+ H (NORMAL) Sodium 133 L (136-145) MEQ/L Potassium 3.2 L (3.5-5.1) MEQ/L Carbon Dioxide 17.0 L 17.0 L (21.0-32.0) MEQ/L BUN 21 H (7-18) MG/DL Creatinine 1.76 H 1.56 H (0.60-1.30) MG/DL Estimated GFR 39 L 44 L (>89) ML/MIN Random Glucose 159 H (74-106) MG/DL Calcium 11.3 H 10.3 H D (8.5-10.1) MG/DL AST 11 L (15-37) U/L Total Protein 6.1 L D (6.4-8.2) GM/DL Albumin 3.2 L 2.6 L D (3.4-5.0) GM/DL Lipase 843 H (73-393) U/L 08/13/17 Range/Units 05:20 RBC 3.78 L (4.50-5.90) MIL/MM3 Hgb 12.1 L D (13.0-17.0) GM/DL Hct 35.5 L (39.0-51.0) % MPV (7.0-11.0) FL Neut % (Auto) 90.1 H (16.0-70.0) % Lymph % (Auto) 5.2 L (9.0-44.0) % Hendry % (Auto) (0.0-8.0) % Lymph # (Auto) 0.3 L (1.0-4.8) TH/MM3 Hendry # (Auto) (0-0.9) TH/MM3 Neutrophils % (Manual) 73 H (16-70) % Band Neutrophils % 21 H (0-6) % Lymphocytes % 3 L (9-44) % Monocytes % (0-8) % Metamyelocytes (0-1) % Myelocytes 1 H (0-0) % Promyelocytes (0-0) % Toxic Granulation 1+ H (NORMAL) Sodium (136-145) MEQ/L Potassium (3.5-5.1) MEQ/L Carbon Dioxide (21.0-32.0) MEQ/L BUN (7-18) MG/DL Creatinine (0.60-1.30) MG/DL Estimated GFR (>89) ML/MIN Random Glucose (74-106) MG/DL Calcium (8.5-10.1) MG/DL AST (15-37) U/L Total Protein (6.4-8.2) GM/DL Albumin (3.4-5.0) GM/DL Lipase (73-393) U/L Short CBC 08/12/17 08/13/17 Range/Units 18:15 05:20 WBC 10.3 5.1 D (4.0-11.0) TH/MM3 Hgb 14.1 12.1 L D (13.0-17.0) GM/DL Hct 41.1 35.5 L (39.0-51.0) % Plt Count 318 D 222 D (150-450) TH/MM3 BMP 08/12/17 08/13/17 18:15 05:20 Sodium 133 L 136 Potassium 3.2 L 3.7 Chloride 103 107 Carbon Dioxide 17.0 L 17.0 L BUN 16 21 H Creatinine 1.76 H 1.56 H Calcium 11.3 H 10.3 H D Liver Function 08/12/17 08/13/17 Range/Units 18:15 05:20 Total Bilirubin 0.5 0.3 (0.2-1.0) MG/DL AST 17 11 L (15-37) U/L ALT 25 20 (12-78) U/L Alkaline Phosphatase 113 92 (45-117) U/L Albumin 3.2 L 2.6 L D (3.4-5.0) GM/DL Physical Exam Vital signs: Vital Signs 08/14/17 00:02 08/14/17 03:57 08/14/17 04:30 Temperature 97.6 F Pulse Rate 69 63 66 Respiratory Rate 17 Blood Pressure 148/84 H Pulse Oximetry 98 08/14/17 09:25 08/14/17 09:32 08/14/17 11:16 Temperature 97.4 F L Pulse Rate 65 79 63 Respiratory Rate 20 Blood Pressure 157/90 H Pulse Oximetry 99 08/14/17 11:58 Temperature 97.9 F Pulse Rate 62 Respiratory Rate 20 Blood Pressure 147/80 H Pulse Oximetry 98 Intake & Output 08/13/17 08/14/17 08/14/17 18:59 06:59 18:59 Intake Total 240 / 240 1000 / 1000 Balance 240 / 240 1000 / 1000 Weight 68 kg Intake: IV 1000 / 1000 1/2 Normal Saline Inj 1,000 ML 1000 / 1000 @ 100 mls/hr IV.CONT .Q10H [facility] Rx#:[id number] Oral 240 / 240 Other: # Voids 2 Date of Last Bowel Movement 08/14/17 08/14/17 # Bowel Movements 5 - Constitutional no acute distress - Routine HEENT Exam Head: Present: normocephalic Eye: Present: EOMI ENT: Present: mucous membranes moist - Routine Neck Exam Present: supple, full ROM - Routine Respiratory Exam Present: CTA bilaterally - Routine Cardiovascular Exam Present: RRR, S1, S2 - Routine Abdominal Exam Present: soft, normoactive bowel sounds - Routine Extremities Exam Present: full ROM - Routine Skin Exam Present: intact, warm - Routine Neurological Exam Present: alert, oriented X3 Assessment and Plan - Assessment (1) Acute colitis Code(s): K52.9 - Noninfective gastroenteritis and colitis, unspecified Status : Acute Plan: SM per Oncology. 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 He will F/U with Oncology after D/C and proceed with plan per Onc. - Plan Cont IV hydration and IV SM. Discussed Condition With: Patient and Oncology [employer] Discharge Planning: Home
[2017-08-14] MEDS: MethylPREDNISolone Sod Succinate Inj 40 MG/ML Vial IV.PUSH SCH (21:20)
[2017-08-15 06:55] LABS: Baso % (Auto) 0.1 % (0.0-2.0); Hematocrit 36.3 % (39.0-51.0); Hemoglobin 12.5 gm/dL (13.0-17.0); Lymph # (Auto) 0.3 th/mm3 (1.0-4.8); Lymph % (Auto) 5.6 % (9.0-44.0); Mean Corpuscular HGB Conc 34.4 % (32.0-36.0); Mean Corpuscular Hemoglobin 32.2 pg (27.0-34.0); Mean Corpuscular Volume 93.6 fL (80.0-100.0); Mean Platelet Volume 6.9 fL (7.0-11.0); Mono # (Auto) 0.5 th/mm3 (0.0-0.9); Mono % (Auto) 9.9 % (0.0-8.0); Neut # (Auto) 4.5 th/mm3 (1.8-7.7); Neut % (Auto) 84.4 % (16.0-70.0); Platelet Count 243 th/mm3 (150-450); Red Blood Count 3.88 mil/mm3 (4.50-5.90); Red Cell Distribution Width 12.5 % (11.6-17.2); White Blood Count 5.3 th/mm3 (4.0-11.0)
[2017-08-15 07:38] LABS: Calcium 10.9 mg/dL (8.5-10.1); Carbon Dioxide 17.5 meq/L (21.0-32.0)
[2017-08-15 09:06] LABS: Lymphocytes 6 % (9-44); Metamyelocytes 1 % (0-1); Monocytes 6 % (0-8); Myelocytes 2 % (0-0); Platelet Estimate Normal (Normal); Toxic Granulation 1+
[2017-08-15 09:07] LABS: Platelet Morphology Normal (Normal)
[2017-08-15] MEDS: Sodium Chloride 0.45 % Inj 1,000 ML IV.CONT SCH ×2 (09:27→20:26)
[2017-08-15] MEDS: MethylPREDNISolone Sod Succinate Inj 40 MG/ML Vial IV.PUSH SCH ×2 (09:28→20:27)
[2017-08-15] MEDS: Finasteride 5 MG Tablet PO SCH (09:28)
--- NOTE | 2017-08-15 13:44 | P.PNFP ---
Subjective Interval history: Up ambulating in room, Slept well Denies pain, Bowel movements have slowed down Results - Labs Result diagrams: 08/15/17 06:18 08/15/17 06:18 Abnormal lab results 08/15/17 08/15/17 Range/Units 06:18 06:18 RBC 3.88 L (4.50-5.90) mil/mm3 Hgb 12.5 L (13.0-17.0) gm/dL Hct 36.3 L (39.0-51.0) % MPV 6.9 L (7.0-11.0) fL Neut % (Auto) 84.4 H (16.0-70.0) % Lymph % (Auto) 5.6 L (9.0-44.0) % Moody % (Auto) 9.9 H (0.0-8.0) % Lymph # (Auto) 0.3 L (1.0-4.8) th/mm3 Band Neuts % (Manual) 16 H (0-6) % Lymphocytes % (Manual) 6 L (9-44) % Myelocytes % (Man) 2 H (0-0) % Toxic Granulation 1+ H (None) Chloride 112 H (98-107) meq/L Carbon Dioxide 17.5 L (21.0-32.0) meq/L BUN 19 H (7-18) mg/dL Creatinine 1.33 H (0.60-1.30) mg/dL Estimated GFR 53 L (>89) mL/min Random Glucose 175 H (74-106) mg/dL Calcium 10.9 H (8.5-10.1) mg/dL Short CBC 08/15/17 Range/Units 06:18 WBC 5.3 (4.0-11.0) th/mm3 Hgb 12.5 L (13.0-17.0) gm/dL Hct 36.3 L (39.0-51.0) % Plt Count 243 (150-450) th/mm3 BMP 08/15/17 06:18 Sodium 140 Potassium 4.0 Chloride 112 H Carbon Dioxide 17.5 L BUN 19 H Creatinine 1.33 H Calcium 10.9 H Physical Exam Vital signs: Vital Signs 08/14/17 16:14 08/14/17 16:37 08/14/17 21:51 Temperature 98.0 F 97.6 F Pulse Rate 72 66 77 Respiratory Rate 20 17 Blood Pressure 157/84 H 152/80 H Pulse Oximetry 99 98 08/15/17 00:00 08/15/17 00:04 08/15/17 04:12 Temperature 97.7 F Pulse Rate 62 60 57 L Respiratory Rate 16 Blood Pressure 142/71 H Pulse Oximetry 98 08/15/17 05:09 08/15/17 08:12 08/15/17 10:19 Temperature 97.6 F 97.2 F L Pulse Rate 59 L 81 Respiratory Rate 16 16 Blood Pressure 148/79 H 144/72 H Pulse Oximetry 97 94 L 97 Intake & Output 08/14/17 08/15/17 08/15/17 18:59 06:59 18:59 Intake Total 1000 / 1000 1800 / 1800 200 / 200 Output Total 3 / 3 Balance 1000 / 1000 1797 / 1797 200 / 200 Weight 68 kg 68 kg Intake: IV 1000 / 1000 1800 / 1800 200 / 200 1/2 Normal Saline Inj 1,000 ML 1000 / 1000 1800 / 1800 200 / 200 @ 100 mls/hr IV.CONT .Q10H [facility] Rx#:[id number] Output: Urine Other: # Voids 6 Date of Last Bowel Movement 08/14/17 08/15/17 08/14/17 # Bowel Movements 10 2 Vital Signs Temp Pulse Resp BP Pulse Ox 08/15/17 10:19 97 08/15/17 08:12 97.2 F L 81 16 144/72 H 94 L 08/15/17 05:09 97.6 F 59 L 16 148/79 H 97 08/15/17 04:12 57 L 08/15/17 00:04 97.7 F 60 16 142/71 H 98 08/15/17 00:00 62 08/14/17 21:51 97.6 F 77 17 152/80 H 98 08/14/17 16:37 98.0 F 66 20 157/84 H 99 08/14/17 16:14 72 Intake and Output 08/14/17 08/15/17 08/15/17 22:59 06:59 14:59 Intake Total 1000 / 1000 800 / 800 200 / 200 Output Total 3 / 3 Balance 1000 / 1000 797 / 797 200 / 200 Intake: IV 1000 / 1000 800 / 800 200 / 200 1/2 Normal Saline Inj 1,000 ML 1000 / 1000 800 / 800 200 / 200 @ 100 mls/hr IV.CONT .Q10H [facility] Rx#:[id number] Output: Urine 3 / 3 Other: # Voids 6 Date of Last Bowel Movement 08/14/17 08/15/17 08/14/17 # Bowel Movements 1 2 Weight 68 kg - Constitutional no acute distress - Routine HEENT Exam Eye: Present: PERRL ENT: Present: mucous membranes moist - Routine Respiratory Exam Present: CTA bilaterally - Routine Cardiovascular Exam Present: RRR, S1, S2 - Routine Abdominal Exam Present: soft - Routine Skin Exam Present: intact - Routine Neurological Exam Present: alert, oriented X3 Assessment and Plan - Assessment (1) Acute colitis Code(s): K52.9 - Noninfective gastroenteritis and colitis, unspecified Status : Acute Plan: SM per Oncology. 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 He will F/U with Dr Benz after D/C for continuation of treatment - Plan Cont IV hydration and IV SM per oncology
[2017-08-15] MEDS: TESTOSTERONE TOPICAL SCH (17:26)
[2017-08-15] MEDS: Senna/Docusate Sodium 8.6/50 MG Tablet PO SCH ×2 (17:27→21:55)
[2017-08-16] MEDS: Sodium Chloride 0.45 % Inj 1,000 ML IV.CONT SCH (04:29)
--- NOTE | 2017-08-16 08:12 | P.PNFP ---
Subjective Interval history: Reports 2 BM since 10 pm last night Denies any NV, no Cp SOB Results - Labs Result diagrams: 08/15/17 06:18 08/15/17 06:18 Abnormal lab results 08/15/17 Range/Units 06:18 Band Neuts % (Manual) 16 H (0-6) % Lymphocytes % (Manual) 6 L (9-44) % Myelocytes % (Man) 2 H (0-0) % Toxic Granulation 1+ H (None) Physical Exam Vital signs: Vital Signs 08/15/17 08:12 08/15/17 10:19 08/15/17 11:00 Temperature 97.2 F L Pulse Rate 81 59 L Respiratory Rate 16 Blood Pressure 144/72 H Pulse Oximetry 94 L 97 08/15/17 12:00 08/15/17 15:00 08/15/17 16:00 Temperature 97.6 F 98 F Pulse Rate 64 62 86 Respiratory Rate 16 18 Blood Pressure 151/83 H 151/72 H Pulse Oximetry 97 96 08/15/17 20:00 08/15/17 20:27 08/16/17 00:00 Temperature 97.9 F 97.6 F Pulse Rate 64 61 64 Respiratory Rate 16 16 Blood Pressure 160/83 H 152/85 H Pulse Oximetry 98 96 08/16/17 00:16 08/16/17 04:00 Temperature 97.7 F Pulse Rate 59 L 59 L Respiratory Rate 18 Blood Pressure 153/87 H Pulse Oximetry 98 Intake & Output 08/15/17 08/16/17 08/16/17 18:59 06:59 18:59 Intake Total 1050 / 1050 2720 / 2720 Output Total Balance 1050 / 1050 2710 / 2710 Weight 68.1 kg Intake: IV 200 / 200 1999 / 1999 1/2 Normal Saline Inj 1,000 ML 200 / 200 1999 / 1999 @ 100 mls/hr IV.CONT .Q10H [facility] Rx#:[id number] Oral 850 / 850 720 / 720 Output: Urine 5 / 5 Stool 5 / 5 Other: # Voids 8 Date of Last Bowel Movement 08/14/17 08/15/17 08/14/17 # Bowel Movements 13 - Constitutional no acute distress, cooperative - Routine HEENT Exam Eye: Present: PERRL ENT: Present: mucous membranes moist - Routine Respiratory Exam Present: CTA bilaterally - Routine Cardiovascular Exam Present: RRR, S1, S2 - Routine Abdominal Exam Present: soft Comments: Non tender, positive BS - Routine Extremities Exam Present: full ROM - Routine Skin Exam Present: intact - Routine Neurological Exam Present: alert, oriented X3 - Routine Psychiatric Exam Present: normal affect, cooperative Assessment and Plan - Assessment (1) Acute colitis Code(s): K52.9 - Noninfective gastroenteritis and colitis, unspecified Status : Acute Plan: Diarrhea is slowing and patient reports he feels better today Oncology following (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 He will F/U with Dr Benz after D/C for continuation of treatment - Plan 08/16/17 Cont IV hydration and IV SM per oncology, Patient voices plan is for 1 more day of IV Solu Medrol, IVF then transition to PO prednisone,Oncology to clear for DC tomorrow.
--- NOTE | 2017-08-16 08:13 | P.PNONC ---
Subjective Interval history: The patient states he is doing much better. His bowel movements were originally 30 per day and he is now having approximately 8 bowel movements per day and eating well without abdominal pain. Objective Vital Signs/Intake & Output: Vital Signs 08/15/17 08:12 08/15/17 10:19 08/15/17 11:00 Temperature 97.2 F L Pulse Rate 81 59 L Respiratory Rate 16 Blood Pressure 144/72 H Pulse Oximetry 94 L 97 08/15/17 12:00 08/15/17 15:00 08/15/17 16:00 Temperature 97.6 F 98 F Pulse Rate 64 62 86 Respiratory Rate 16 18 Blood Pressure 151/83 H 151/72 H Pulse Oximetry 97 96 08/15/17 20:00 08/15/17 20:27 08/16/17 00:00 Temperature 97.9 F 97.6 F Pulse Rate 64 61 64 Respiratory Rate 16 16 Blood Pressure 160/83 H 152/85 H Pulse Oximetry 98 96 08/16/17 00:16 08/16/17 04:00 Temperature 97.7 F Pulse Rate 59 L 59 L Respiratory Rate 18 Blood Pressure 153/87 H Pulse Oximetry 98 Intake & Output 08/15/17 08/16/17 08/16/17 18:59 06:59 18:59 Intake Total 1050 / 1050 2720 / 2720 Output Total 10 10 Balance 1050 / 1050 2710 / 2710 Weight 68.1 kg Intake: IV 200 / 200 1999 / 1999 1/2 Normal Saline Inj 1,000 ML 200 / 200 1999 / 2000 @ 100 mls/hr IV.CONT .Q10H [facility] Rx#:[id number] Oral 850 / 850 720 / 720 Output: Urine 5 / 5 Stool 5 / 5 Other: # Voids 8 Date of Last Bowel Movement 08/14/17 08/15/17 08/14/17 # Bowel Movements 13 Result Diagrams: 08/15/17 06:18 08/15/17 06:18 Laboratory Results: Laboratory Results - last 24 hr 08/15/17 06:18 WBC Differential Manual diff final Seg Neuts % (Manual) 69 Band Neuts % (Manual) 16 H Lymphocytes % (Manual) 6 L Monocytes % (Manual) 6 Metamyelocytes % (Man) 1 Myelocytes % (Man) 2 H Abs Neuts (Manual) 4.7 Toxic Granulation 1+ H Platelet Estimate Normal Platelet Morphology Normal Medications: Active Medications Generic Name Dose Route Start Last Admin Trade Name Davidq PRN Reason Stop Dose Admin Atorvastatin Calcium 20 mg 08/14/17 21:00 08/15/17 20:25 Lipitor PO 20 mg HS [facility] Administration Finasteride 5 mg 08/14/17 09:00 08/15/17 09:28 Proscar PO 5 mg DAILY [facility] Administration Sodium Chloride 1,000 mls @ 100 mls/hr 08/14/17 01:00 08/16/17 04:29 1/2 Normal Saline Inj IV.CONT 100 mls/hr .Q10H [facility] Administration Methylprednisolone Sodium Succinate 40 mg 08/14/17 21:00 08/15/17 20:27 Solumedrol Inj IV.PUSH 40 mg BID [facility] Administration Pantoprazole Sodium 40 mg 08/14/17 09:00 08/15/17 09:29 Protonix PO 40 mg DAILY [facility] Administration Pt Own Testosterone 0 each 08/14/17 09:00 08/15/17 17:26 Top TOPICAL 1 each DAILY [facility] Administration Senna/Docusate Sodium 1 tab 08/14/17 09:00 08/15/17 21:55 Arielle-Colace PO Not Given BID [facility] Sodium Chloride 2 ml 08/14/17 09:00 08/15/17 20:27 Ns Flush IV.FLUSH 2 ml BID [facility] Administration Vitamin D 1,000 unit 08/14/17 09:00 08/15/17 09:29 Vitamin D3 PO 1,000 unit DAILY [facility] Administration Objective Remarks: GENERAL: Well-nourished, well-developed patient. SKIN: Warm and dry. HEAD: Normocephalic. EYES: No scleral icterus. No injection or drainage. NECK: Supple, trachea midline. No JVD or lymphadenopathy. LYMPHATIC: No adenopathy. CARDIOVASCULAR: Regular rate and rhythm without murmurs. RESPIRATORY: Breath sounds equal bilaterally. No accessory muscle use. GASTROINTESTINAL: Abdomen soft, non-tender, nondistended. EXTREMITIES: No cyanosis, or edema. MUSCULOSKELETAL: Adequate muscle tone. NEUROLOGICAL: No obvious focal deficit. Awake, alert, and oriented x3. PSYCHIATRIC: Appropriate mood and affect; insight and judgment normal. 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 He is clearly doing better. He is eating and drinking although still has a significant number of loose bowel movements per day but they appear to be decreasing. At this point will stop the IV Solu-Medrol and begin prednisone 40 mg p.o. twice daily. We will discontinue the IV fluids and observe for 24 hours. If he is doing well tomorrow he can go home on 60 mg of prednisone daily and I would like to see him in approximately for 5 days following discharge. If he continues to have significant uncontrolled diarrhea then I will recommend treatment with Remicade. 2: Regarding the renal cell cancer it appears based on his recent CAT scan that he is responding to therapy. He will be able to resume therapy in 4-6 weeks time if he is doing well and his current problem has resolved. By then his steroids will have been tapered to a low dose. For the moment it would not be safe to resume the nivolumab.
[2017-08-16] MEDS: Finasteride 5 MG Tablet PO SCH (10:00)
[2017-08-16] MEDS: Senna/Docusate Sodium 8.6/50 MG Tablet PO SCH ×2 (10:02→22:09)
[2017-08-16] MEDS: TESTOSTERONE TOPICAL SCH (10:02)
[2017-08-16] MEDS: predniSONE 20 MG Tablet PO SCH ×2 (10:09→20:00)
[2017-08-17] MEDS: Finasteride 5 MG Tablet PO SCH (08:34)
[2017-08-17] MEDS: predniSONE 20 MG Tablet PO SCH (08:35)
[2017-08-17] MEDS: Senna/Docusate Sodium 8.6/50 MG Tablet PO SCH (09:16)
[2017-08-17] MEDS: TESTOSTERONE TOPICAL SCH (09:19)
--- NOTE | 2017-08-17 10:45 | P.PNONC ---
Subjective Interval history: Has had 3 bowel movements during the past 12 hours. They have been both loose and solid. No abdominal pain. The patient feels well. Objective Vital Signs/Intake & Output: Vital Signs 08/16/17 11:00 08/16/17 11:30 08/16/17 15:07 Temperature 98.2 F Pulse Rate 66 72 67 Respiratory Rate 18 Blood Pressure 141/72 H Pulse Oximetry 98 08/16/17 16:00 08/16/17 20:00 08/16/17 20:12 Temperature 97.8 F 98.0 F Pulse Rate 68 70 66 Respiratory Rate 18 16 Blood Pressure 138/78 140/79 Pulse Oximetry 97 99 08/17/17 00:00 08/17/17 00:18 08/17/17 04:00 Temperature 98.2 F 98.3 F Pulse Rate 64 65 66 Respiratory Rate 16 16 Blood Pressure 137/70 136/76 Pulse Oximetry 96 97 08/17/17 10:01 Temperature 97.6 F Pulse Rate 67 Respiratory Rate 20 Blood Pressure 133/78 Pulse Oximetry 98 Intake & Output 08/16/17 08/17/17 08/17/17 18:59 06:59 18:59 Intake Total 2100 / 2100 240 / 240 Balance 2100 / 2100 240 / 240 Intake: IV 700 / 700 1/2 Normal Saline Inj 1,000 ML 700 / 700 @ 100 mls/hr IV.CONT .Q10H [facility] Rx#:[id number] Oral 1400 / 1400 240 / 240 Other: # Voids 13 Date of Last Bowel Movement 08/16/17 08/16/17 # Bowel Movements 10 2 Result Diagrams: 08/15/17 06:18 08/15/17 06:18 Medications: Active Medications Generic Name Dose Route Start Last Admin Trade Name Freq PRN Reason Stop Dose Admin Atorvastatin Calcium 20 mg 08/14/17 21:00 08/16/17 20:00 Lipitor PO 20 mg HS [facility] Administration Finasteride 5 mg 08/14/17 09:00 08/17/17 08:34 Proscar PO 5 mg DAILY [facility] Administration Pantoprazole Sodium 40 mg 08/14/17 09:00 08/17/17 08:34 Protonix PO 40 mg DAILY [facility] Administration Pt Own Testosterone 0 each 08/14/17 09:00 08/17/17 09:19 Top TOPICAL 1 each DAILY [facility] Administration Prednisone 40 mg 08/16/17 09:00 08/17/17 08:35 Deltasone PO 40 mg BID [facility] Administration Sodium Chloride 2 ml 08/14/17 09:00 08/17/17 08:35 Ns Flush IV.FLUSH 2 ml BID [facility] Administration Vitamin D 1,000 unit 08/14/17 09:00 08/17/17 08:35 Vitamin D3 PO 1,000 unit DAILY [facility] Administration Objective Remarks: GENERAL: Well-nourished, well-developed patient. SKIN: Warm and dry. HEAD: Normocephalic. EYES: No scleral icterus. No injection or drainage. NECK: Supple, trachea midline. No JVD or lymphadenopathy. LYMPHATIC: No adenopathy. CARDIOVASCULAR: Regular rate and rhythm without murmurs. RESPIRATORY: Breath sounds equal bilaterally. No accessory muscle use. GASTROINTESTINAL: Abdomen soft, non-tender, nondistended. EXTREMITIES: No cyanosis, or edema. MUSCULOSKELETAL: Adequate muscle tone. NEUROLOGICAL: No obvious focal deficit. Awake, alert, and oriented x3. PSYCHIATRIC: Appropriate mood and affect; insight and judgment normal. Assessment/Plan - Plan 1: The patient has a colitis secondary to his immune therapy. He is clearly doing better. At this point he is ready for discharge. He will go home on prednisone 20 mg p.o. 3 times daily for 5 days. He was then taper the prednisone to 50 mg a day. He should go home with either an H2 romana or proton pump inhibitor to protect the stomach. If his diarrhea is not controlled with this I will give him Remicade as an outpatient. I have spoken with his physician Dr. Brown and he will arrange for the discharge today. I have written a prescription for prednisone. I will write for Protonix as well. 2: Regarding the renal cell cancer it appears based on his recent CAT scan that he is responding to therapy. The patient is scheduled for a PET scan in approximately 1 week. He already has an appointment to see me in 10 days. If he has had a response to the immune therapy and the colitis has resolved I would be inclined to treat him with single agent nivolumab.
[2017-08-17] MEDS ORDERED: TESTOSTERONE TOPICAL SCH (12:45)
[2017-08-17] MEDS ORDERED: NIVOLUMAB IV.SIG SCH (12:45)
[2017-08-17] MEDS ORDERED: [UNRECOGNIZED DRUG - OTHER] IV.SIG SCH (12:45)
--- NOTE | 2017-08-17 13:35 | P.DS ---
Date of admission: 08/12/17 19:37 Primary care physician: Tushar Ty DO Attending physician on discharge: Tushar Ty Anticipated date of discharge: 08/17/17 Brief History from admission: Male 71 years old. He has a history of renal cell carcinoma. He is receiving nivolumab and ipilimumab. He has had diarrhea, 36 bowel movements a day for the past day or so. [facility] and IVF. DS: Diagnosis - Discharge Diagnosis (1) Acute colitis Status: Acute (2) Clear cell carcinoma of kidney Status: Chronic DS: Medications - Discharge Medications Prescriptions: pantoprazole [Protonix] 40 mg PO DAILY 30 Days #30 tab pantoprazole 40 mg PO DAILY #30 tab pantoprazole [Protonix] 40 mg PO BID #30 tab prednisone [Deltasone] 20 mg PO TID #60 tab DS: Summary Hospital Course: Admitted for diarrhea related to Immunotherapy. he was treated with IV solu medrol and IVF. Bowel movement s decreased from 15-20 daily to 4 on day of DC. He is sent home on PO prednisone. - Time Spent with Patient Total time spent providing and/or coordinating discharge services: Exam Vital signs: Vital Signs 08/16/17 15:07 08/16/17 16:00 08/16/17 20:00 Temperature 97.8 F 98.0 F Pulse Rate 67 68 70 Respiratory Rate 18 16 Blood Pressure 138/78 140/79 Pulse Oximetry 97 99 08/16/17 20:12 08/17/17 00:00 08/17/17 00:18 Temperature 98.2 F Pulse Rate 66 64 65 Respiratory Rate 16 Blood Pressure 137/70 Pulse Oximetry 96 08/17/17 04:00 08/17/17 10:01 08/17/17 13:21 Temperature 98.3 F 97.6 F 97.6 F Pulse Rate 66 67 Respiratory Rate 16 20 18 Blood Pressure 136/76 133/78 135/76 Pulse Oximetry 97 98 98 Intake & Output 08/16/17 08/17/17 08/17/17 18:59 06:59 18:59 Intake Total 2099 / 2100 240 / 240 Balance 2100 / 2100 240 / 240 Intake: IV 700 / 700 1/2 Normal Saline Inj 1,000 ML 700 / 700 @ 100 mls/hr IV.CONT .Q10H LASHONDA Rx#:[id number] Oral 1400 / 1400 240 / 240 Other: # Voids 13 Date of Last Bowel Movement 08/16/17 08/16/17 # Bowel Movements 10 2 - Constitutional no acute distress, cooperative - Routine HEENT Exam Head: Present: normocephalic Eye: Present: PERRL ENT: Present: mucous membranes moist - Routine Neck Exam Present: supple - Routine Respiratory Exam Present: CTA bilaterally - Routine Cardiovascular Exam Present: RRR, S1, S2 - Routine Abdominal Exam Present: soft, normoactive bowel sounds - Routine Skin Exam Present: intact - Routine Neurological Exam Present: alert, oriented X3 Results Procedures completed during hospitalization: m Completed studies during hospitalization: . Pending studies at discharge: . Labs on day of discharge: Abnormal Labs 08/12/17 08/12/17 08/13/17 18:15 18:15 05:20 RBC 4.41 L Hgb Hct MPV 6.9 L Neut % (Auto) 75.2 H Lymph % (Auto) 6.1 L Rooks % (Auto) 17.9 H Lymph # (Auto) 0.6 L [place]ook[place] # (Auto) 1.8 H Neutrophils % (Manual) Band Neutrophils % 27 H Band Neuts % (Manual) Lymphocytes % 6 L Lymphocytes % (Manual) Monocytes % 20 H Myelocytes % (Man) Metamyelocytes 2 H Myelocytes Promyelocytes 2 H Toxic Granulation 1+ H Sodium 133 L Potassium 3.2 L Chloride Carbon Dioxide 17.0 L 17.0 L BUN 21 H Creatinine 1.76 H 1.56 H Estimated GFR 39 L 44 L Random Glucose 159 H Calcium 11.3 H 10.3 H D AST 11 L Total Protein 6.1 L D Albumin 3.2 L 2.6 L D Lipase 843 H 08/13/17 08/15/17 08/15/17 05:20 06:18 06:18 RBC 3.78 L 3.88 L Hgb 12.1 L D 12.5 L Hct 35.5 L 36.3 L MPV 6.9 L Neut % (Auto) 90.1 H 84.4 H Lymph % (Auto) 5.2 L 5.6 L Rooks % (Auto) 9.9 H Lymph # (Auto) 0.3 L 0.3 L [place]ook[place] # (Auto) Neutrophils % (Manual) 73 H Band Neutrophils % 21 H Band Neuts % (Manual) 16 H Lymphocytes % 3 L Lymphocytes % (Manual) 6 L Monocytes % Myelocytes % (Man) 2 H Metamyelocytes Myelocytes 1 H Promyelocytes Toxic Granulation 1+ H 1+ H Sodium Potassium Chloride 112 H Carbon Dioxide 17.5 L BUN 19 H Creatinine 1.33 H Estimated GFR 53 L Random Glucose 175 H Calcium 10.9 H AST Total Protein Albumin Lipase Discharge Plan - Discharge Disposition Patient Disposition: 01 Discharge Home - Discharge Condition Condition: Good - Discharge Order Discharge Orders: Discharge Order (Routine); Ordered 08/17/17 Ordered By: Edna Barahona - Discharge Details Anticipated Discharge Date: 08/17/17 - Physicians Team Primary Care Provider: Tushar Ty Attending Provider: Tushar Ty Other Providers: Cami Fernandez - Rxs /Orders / Referrals /Forms Prescriptions: New atorvastatin 20 mg Tablet 20 mg PO HS RF: 0 finasteride 5 mg Tablet 5 mg PO DAILY RF: 0 pantoprazole [Protonix] 40 mg Tablet,Delayed Release (Dr/Ec) 40 mg PO DAILY 30 Days Qty: 30 RF: 0 pantoprazole [Protonix] 40 mg Tablet,Delayed Release (Dr/Ec) 40 mg PO BID Qty: 30 RF: 0 prednisone 20 mg Tablet 40 mg PO BID RF: 0 prednisone [Deltasone] 20 mg Tablet 20 mg PO TID Qty: 60 RF: 0 Continue atorvastatin 20 mg Tablet 20 mg PO HS cholecalciferol (vitamin D3) 1,000 unit Tablet 1,000 unit PO DAILY finasteride 5 mg Tablet 5 mg PO DAILY ipilimumab 200 mg/40 mL (5 mg/mL) Solution 10 mg/kg IV ONCE nivolumab 40 mg/4 mL Solution 1 mg/kg IV ONCE pantoprazole 40 mg Tablet,Delayed Release (Dr/Ec) 40 mg PO DAILY Qty: 30 testosterone 1 % (25 mg/2.5gram) Gel In Packet 1 packet TRANSDERMAL QAM Discontinued acetaminophen 325 mg Tablet 650 mg PO Q4H PRN (Reason: Pain) sennosides-docusate sodium 8.6-50 mg Tablet 1 tab PO BID Referrals: Tushar Ty DO [Primary Care Provider] - See Instructions - Discharge Instructions Additional Instructions: DC home, Follow up with Oncology per instructions. Follow up with PCP 1-2 weeks. - Post Discharge Care Plan Care Plan Goals: Your Health Problems: Goals to Promote Your Health: * To prevent worsening of your condition * To maintain your health at the optimal level Directions to Meet Your Goals: * Take your medications as prescribed * Follow your dietary instruction * Follow activity as directed * Keep your appointments as scheduled * Take your immunizations and boosters as scheduled * If your symptoms worsen call your PCP * If no PCP go to Urgent Care or Emergency Room Smoking is dangerous to your health. Avoid second hand smoke. You may reach the 24-hour crisis hotline for domestic abuse at .
[2017-08-17] MEDS ORDERED: ATORVASTATIN 20 MG PO SCH (21:00)
[2017-08-18] MEDS ORDERED: PANTOPRAZOLE 40 MG PO SCH (09:00)
[2017-08-18] MEDS ORDERED: FINASTERIDE 5 MG PO SCH (09:00)
[2017-08-18] MEDS ORDERED: CHOLECALCIFEROL 1000 UNIT PO SCH (09:00)
[2017-08-18] MEDS ORDERED: [UNRECOGNIZED DRUG - OTHER] PO SCH (09:00)
== END 2017-08-17 14:30 | disposition home or self-care (01) ==
LOC: HCIN 19:37
PROVIDERS: ADMIT Family Medicine; ATTEND Family Medicine

== ENCOUNTER 2018-01-16 20:37 | Inpatient (IN) ==
[2018-01-16] MEDS ORDERED: Sodium Chlor 0.9% Inj 500 ML IV.SIG ONE (22:02)
--- NOTE | 2018-01-16 22:09 | ED ---
HPI General Chief complaint: Abdominal Pain Stated complaint: Abd Pain Time Seen by Provider: 01/16/18 21:50 Source: patient Mode of arrival: ambulatory Limitations: no limitations History of Present Illness HPI narrative: The patient is a 72 year old male who presents to the [facility] emergency department with a history of abdominal pain that he reports began yesterday in the midepigastric area and has been a burning and throbbing sensation. He reports that it has been constant since the onset although gradually worsening with time and over the last 6 hours has migrated down into the right lower quadrant of the abdomen. The patient reports that he has not had an appendectomy. He reports having nausea without any vomiting associated with this. He denies having any fevers or chills or diarrhea. The patient reports that he is on immunotherapy related to a clear cell renal carcinoma with metastasis that is currently in remission under the care of Dr. Benz. He denies having any chest pain, chest pressure, or shortness of breath. He denies having any recent cough or congestion. Review of systems otherwise, the patient denies having any neck pain, urinary symptoms, or neurologic symptoms. Related Data Home Medications Medication Instructions Recorded Confirmed atorvastatin 20 mg PO HS 08/13/17 01/17/18 nivolumab 1 mg/kg IV QMONTH 08/13/17 01/17/18 losartan 100 mg PO DAILY 01/16/18 01/17/18 Previous Rx's Medication Instructions Recorded finasteride 5 mg PO DAILY tab 08/17/17 hydrocodone-acetaminophen 1 tab PO Q4H PRN #18 tab 01/17/18 levofloxacin 500 mg PO DAILY 5 Days #5 tab 01/17/18 Allergies Allergy/AdvReac Type Severity Reaction Status Date / Time No Known Allergies Allergy Verified 01/16/18 20:47 Review of Systems ROS: all other systems reviewed are negative PMFSH Social History Social History Substance History: No History of Abuse Second Hand Smoke Exposure: No Smoking Status: Never smoker How Often Do You Have a Drink Containing Alcohol: Monthly or less Recent Travel in [facility] within the Last 8 Weeks: No Recent Out of Country Travel within the Last 8 Weeks: No Immunization History Tetanus Immunization: Unsure Exam Const General: cooperative, no acute distress and well developed Nutritional Appearance: well nourished Orientation: alert, awake and oriented x3 HENMT Head: normocephalic and atraumatic Nose: no nasal discharge and no epistaxis Mouth: moist mucous membranes Throat: posterior oropharynx normal and uvula midline Eyes Sclera: normal sclerae Pupils: PERRL Neck Neck: no meningeal signs, trachea midline and no JVD Resp Effort & Inspection: no use of accessory muscles Auscultation: clear to auscultation bilaterally Cardio Rate: regular rate Rhythm: regular rhythm Heart Sounds: no murmurs GI Inspection: non-distended Palpation: soft, no hepatosplenomegaly and tender in the RLQ and at McBurney's point; not in the epigastrum, not in the LLQ, not in the LUQ, not in the RUQ, not periumbilically, not suprapubicly, Rankin's sign negative and Rovsing's sign negative Auscultation: normal bowel sounds Back/Spine/Pelvis Back: no CVA tenderness Skin General: dry skin (warm) Neuro General: alert, awake, oriented x3 and other (Grossly nonfocal.) Speech: speech normal Motor: no movement abnormalities noted Extrem General: normal to inspection, no clubbing, no cyanosis and no edema Psych Mood: congruent mood Affect: normal affect Judgment: judgment good Course Initial Documented Vital Signs Temperature 98.8 F 01/16/18 20:47 Pulse Rate 67 01/16/18 20:47 Respiratory Rate 18 01/16/18 20:47 Blood Pressure 149/85 H 01/16/18 20:47 Pulse Oximetry 98 01/16/18 20:47 Last Documented Vital Signs Temperature 97.8 F 01/18/18 00:06 Pulse Rate 53 L 01/18/18 04:00 Respiratory Rate 17 01/18/18 00:06 Blood Pressure 107/59 L 01/18/18 00:06 Pulse Oximetry 92 L 01/18/18 00:06 Medical Decision Making MDM Narrative Medical decision making narrative: During the course of the patient's emergency department visit, the patient's history, examination, and differential diagnosis were reviewed with the patient. The patient was placed on a cardiac catheterization technologist with oximetry and frequent blood pressure monitoring. The patient had IV access obtained and blood work sent for analysis. Diagnostic evaluation was started regarding the patient's abdominal pain. The patient was initially provided normal saline IV fluids, morphine for pain, Zofran for nausea. The patient's diagnostic studies are remarkable for a white count of 10.6, hemoglobin 13.8, platelets 187 with 85.5 neutrophils, PT 10.7, PTT 29.6, chemistry is remarkable for a BUN of 28, creatinine 1.51, glucose 141, lactic acid 1.0, AST 11, alk phos 118, C-reactive protein 1.51, lipase 334. Urinalysis showed no acute abnormality. Initially, the radiologist read the CT scan as showing no acute abnormality, however I continue to have concern about appendicitis, therefore I called the reading radiologist, Dr. Carrion at 1:52AM. He reviewed the patient's CT scan findings and reported that the patient does indeed have what appears to be appendicitis. He will be making an addendum. The patient was given Zosyn 3.375 g IV. The patient's case including history, pertinent physical examination findings, and laboratory studies were discussed with Dr. Anil Mittal, the general surgeon. He did agree that his service will see the patient in consultation. The patient's case including history, pertinent physical examination findings, and laboratory studies were discussed with Dr. Ty. It was agreed that the patient would be admitted to the Dr. Ty's service. The patient's results were discussed with the patient, including the plan of care. I explained that further testing and/ or monitoring is indicated based on the patient's history, examination, and/ or laboratory findings. Therefore, I recommended admission for additional evaluation. The patient expressed understanding and was agreeable with this plan. The patient was admitted to the hospital in stable condition and sent to a bed under the care of Dr. Ty's service. Medical Screen Exam Complete: Yes Emergency Medical Condition: Yes Differential Diagnosis Differential Diagnosis: Appendicitis, versus pancreatitis, versus acute cholecystitis, versus colitis Medical Records Medical records reviewed: Yes I reviewed the patient's medical records. Lab Data Lab results reviewed: Yes I reviewed the patient's lab results. Result diagrams: 01/16/18 22:15 01/16/18 22:15 Lab Results 01/16/18 01/16/18 01/16/18 Range/Units 21:50 22:15 22:15 WBC 10.6 (4.0-11.0) th/mm3 RBC 4.63 (4.50-5.90) mil/mm3 Hgb 13.8 (13.0-17.0) gm/dL Hct 40.9 (39.0-51.0) % MCV 88.3 (80.0-100.0) fL MCH 29.9 (27.0-34.0) pg MCHC 33.8 (32.0-36.0) % RDW 14.1 (11.6-17.2) % Plt Count 187 (150-450) th/mm3 MPV 8.3 (7.0-11.0) fL Neut % (Auto) 85.5 H (16.0-70.0) % Lymph % (Auto) 5.5 L (9.0-44.0) % Day % (Auto) 8.8 H (0.0-8.0) % Eos % (Auto) 0.1 (0.0-4.0) % Baso % (Auto) 0.1 (0.0-2.0) % Neut # (Auto) 9.1 H (1.8-7.7) th/mm3 Lymph # (Auto) 0.6 L (1.0-4.8) th/mm3 Day # (Auto) 0.9 (0.0-0.9) th/mm3 Eos # (Auto) 0.0 (0.0-0.4) th/mm3 Baso # (Auto) 0.0 (0.0-0.2) th/mm3 WBC Differential . Differential Comment Auto diff final PT 10.7 (9.8-11.6) sec INR 1.1 Ratio APTT 29.7 (23.4-31.7) sec Sodium (136-145) meq/L Potassium (3.5-5.1) meq/L Chloride (98-107) meq/L Carbon Dioxide (21.0-32.0) meq/L Anion Gap (5-15) meq/L BUN (7-18) mg/dL Creatinine (0.60-1.30) mg/dL Estimated GFR (>89) mL/min Random Glucose (74-106) mg/dL Lactic Acid (0.4-2.0) mmol/L Calcium (8.5-10.1) mg/dL Magnesium (1.5-2.5) mg/dL Total Bilirubin (0.2-1.0) mg/dL AST (15-37) U/L ALT (12-78) U/L Alkaline Phosphatase (45-117) U/L C-Reactive Protein (0.00-0.30) mg/dL Total Protein (6.4-8.2) g/dL Albumin (3.4-5.0) g/dL Lipase (73-393) U/L Urine Color Yellow (Yellw/Straw) Urine Clarity Clear (Clear) Urine pH 5.0 (5.0-8.5) Ur Specific [place] 1.019 (1.002-1.035) Urine Protein 30 H (Neg-Trace) mg/dL Urine Glucose (UA) Negative (Negative) mg/dL Urine Ketones Negative (Negative) mg/dL Urine Occult Blood Negative (Negative) Urine Nitrate Negative (Negative) Urine Bilirubin Negative (Negative) Urine Urobilinogen Less than 2 (Less than 2) mg/dL Ur Leukocyte Esterase Negative (Negative) Urine WBC 1 (0-5) /hpf Ur Squamous Epith Cells <1 (0-5) /hpf Urine Mucus Few H (Occasional) /lpf Micro UA Comment Culture not ind Ur Microscopic Review Not Reportable Urine Culture Comments Culture not ind 01/16/18 01/16/18 Range/Units 22:15 22:15 WBC (4.0-11.0) th/mm3 RBC (4.50-5.90) mil/mm3 Hgb (13.0-17.0) gm/dL Hct (39.0-51.0) % MCV (80.0-100.0) fL MCH (27.0-34.0) pg MCHC (32.0-36.0) % RDW (11.6-17.2) % Plt Count (150-450) th/mm3 MPV (7.0-11.0) fL Neut % (Auto) (16.0-70.0) % Lymph % (Auto) (9.0-44.0) % Day % (Auto) (0.0-8.0) % Eos % (Auto) (0.0-4.0) % Baso % (Auto) (0.0-2.0) % Neut # (Auto) (1.8-7.7) th/mm3 Lymph # (Auto) (1.0-4.8) th/mm3 Day # (Auto) (0.0-0.9) th/mm3 Eos # (Auto) (0.0-0.4) th/mm3 Baso # (Auto) (0.0-0.2) th/mm3 WBC Differential Differential Comment PT (9.8-11.6) sec INR Ratio APTT (23.4-31.7) sec Sodium 139 (136-145) meq/L Potassium 4.0 (3.5-5.1) meq/L Chloride 106 (98-107) meq/L Carbon Dioxide 28.4 (21.0-32.0) meq/L Anion Gap 5 (5-15) meq/L BUN 28 H (7-18) mg/dL Creatinine 1.51 H (0.60-1.30) mg/dL Estimated GFR 46 L (>89) mL/min Random Glucose 141 H (74-106) mg/dL Lactic Acid 1.0 (0.4-2.0) mmol/L Calcium 8.6 (8.5-10.1) mg/dL Magnesium 1.7 (1.5-2.5) mg/dL Total Bilirubin 0.5 (0.2-1.0) mg/dL AST 11 L (15-37) U/L ALT 24 (12-78) U/L Alkaline Phosphatase 118 H (45-117) U/L C-Reactive Protein 1.51 H (0.00-0.30) mg/dL Total Protein 7.1 (6.4-8.2) g/dL Albumin 3.5 (3.4-5.0) g/dL Lipase 334 (73-393) U/L Urine Color (Yellw/Straw) Urine Clarity (Clear) Urine pH (5.0-8.5) Ur Specific [place] (1.002-1.035) Urine Protein (Neg-Trace) mg/dL Urine Glucose (UA) (Negative) mg/dL Urine Ketones (Negative) mg/dL Urine Occult Blood (Negative) Urine Nitrate (Negative) Urine Bilirubin (Negative) Urine Urobilinogen (Less than 2) mg/dL Ur Leukocyte Esterase (Negative) Urine WBC (0-5) /hpf Ur Squamous Epith Cells (0-5) /hpf Urine Mucus (Occasional) /lpf Micro UA Comment Ur Microscopic Review Urine Culture Comments Imaging Data Radiologist's impression: Abdomen/Pelvis CT 01/17/18 00:43 CONCLUSION: 1. Unchanged retroperitoneal mass consistent with recurrent disease at the level of the prior right nephrectomy. Previously evaluated with PET. 2. Prior right nephrectomy. 3. Constipation. 4. Stable expansile lesion involving left sacral ala without hypermetabolism on the prior CTA. This is felt to be benign. 5. Stable tiny right adrenal gland nodule. Discharge Plan Discharge Disposition Patient Disposition: ED Admit(ED Internal Use Only) Discharge Order Discharge Orders: ED Use Only Admit Order (Routine); Ordered 01/17/18 Ordered By: Rosalva Naranjo Discharge Details Diagnosis: Appendicitis Physicians Team ED Provider: Rosalva Naranjo Primary Care Provider: Tushar Ty Attending Provider: Tushar Ty Other Providers: Ayush Benz ; Odell Sterling ; Gregg Awad Discharge Interventions Interventions: ED Discharge Assessment Last Done: 01/17/18 12:00 Status ED Status: Admitted Patient
[2018-01-16 22:46] LABS: Baso % (Auto) 0.1 % (0.0-2.0); Eos % (Auto) 0.1 % (0.0-4.0); Hematocrit 40.9 % (39.0-51.0); Hemoglobin 13.8 gm/dL (13.0-17.0); Lymph # (Auto) 0.6 th/mm3 (1.0-4.8); Lymph % (Auto) 5.5 % (9.0-44.0); Mean Corpuscular HGB Conc 33.8 % (32.0-36.0); Mean Corpuscular Hemoglobin 29.9 pg (27.0-34.0); Mean Corpuscular Volume 88.3 fL (80.0-100.0); Mean Platelet Volume 8.3 fL (7.0-11.0); Mono # (Auto) 0.9 th/mm3 (0.0-0.9); Mono % (Auto) 8.8 % (0.0-8.0); Neut # (Auto) 9.1 th/mm3 (1.8-7.7); Neut % (Auto) 85.5 % (16.0-70.0); Platelet Count 187 th/mm3 (150-450); Red Blood Count 4.63 mil/mm3 (4.50-5.90); Red Cell Distribution Width 14.1 % (11.6-17.2); White Blood Count 10.6 th/mm3 (4.0-11.0)
[2018-01-16 22:58] LABS: Alanine Aminotransferase 24 U/L (12-78); Albumin 3.5 g/dL (3.4-5.0); Anion Gap 5 meq/L (5-15); Aspartate Aminotransferase 11 U/L (15-37); Blood Urea Nitrogen 28 mg/dL (7-18); C-Reactive Protein 1.51 mg/dL (0.00-0.30); Calcium 8.6 mg/dL (8.5-10.1); Carbon Dioxide 28.4 meq/L (21.0-32.0); Chloride 106 meq/L (98-107); Glomerular Filtration Rate 46 mL/min (>89); Glucose,Random 141 mg/dL (74-106); Lipase 334 U/L (73-393); Magnesium 1.7 mg/dL (1.5-2.5); Sodium 139 meq/L (136-145)
[2018-01-16 23:03] LABS: Alkaline Phosphatase 118 U/L (45-117); Total Protein 7.1 g/dL (6.4-8.2)
[2018-01-16 23:05] LABS: Activated Partial Thrombo Time 29.7 sec (23.4-31.7); INR 1.1 Ratio; Prothrombin Time 10.7 sec (9.8-11.6)
[2018-01-17] MEDS ORDERED: Bisacodyl 10 MG Supp RECTAL PRN (00:22)
[2018-01-17] MEDS ORDERED: NIVOLUMAB IV.SIG SCH (00:30)
[2018-01-17] MEDS ORDERED: Morphine Inj 4 MG/ML Vial IV.PUSH ONE (01:05)
[2018-01-17] MEDS ORDERED: Piperacil/Tazo 3.375 GM Premix 50 ML IV.SIG ONE (01:35)
--- NOTE | 2018-01-17 01:47 | CT ---
EXAM DATE: 01/17/2018 1:20 AM EST AGE/SEX: 72 years / Male INDICATIONS: Right lower quadrant pain. CLINICAL DATA: This is the patient's initial encounter. Patient reports that signs and symptoms have been present for 1 day and indicates a pain score of 6/10. MEDICAL/SURGICAL HISTORY: Renal cell carcinoma. Nephrectomy, right. Fusion, lumbar. ORAL CONTRAST: No oral contrast ingested. RADIATION DOSE: 9.96 CTDI (mGy) COMPARISON: [facility] [place] ABDOMEN & PELVIS W/O CONTRAST, 08/08/2017 PET/CT 01/13/2018. . TECHNIQUE: Multiple contiguous axial images were obtained through the abdomen and pelvis following b olus infusion of 70 ml Omnipaque 350 (iohexol) nonionic water-soluble contrast as a single exam dos e. No oral contrast ingested. Using automated exposure control and adjustment of the mA and/or kV ac cording to patient size, radiation dose was kept as low as reasonably achievable to obtain optimal di agnostic quality images. DICOM format image data is available electronically for review and comparis on. FINDINGS: Lower Lungs: The visualized lower lungs are clear. Tiny hiatal hernia. Liver: The liver has a homogeneous density without space-occupying lesion. There is no dilation of th e biliary tree. Gallbladder is unremarkable. Spleen: Homogeneous density without enlargement. A few scattered granulomatous calcifications. Pancreas: Unremarkable without mass or calcification. Kidneys: Prior right nephrectomy. The colon now occupies the nephrectomy bed. Left kidney is without mass or hydronephrosis. A 1 mm nonobstructing renal stone is observed.. Adrenal Glands: 12 mm right adrenal gland nodule is unchanged. Left adrenal gland is unremarkable.. Aorta: The aorta and proximal iliac vessels are grossly unremarkable without aneurysmal dilation. Bowel/Mesentery: A few scattered colonic diverticuli without acute inflammation. Moderate stool nusrat en noted. Small bowel loops are normal in caliber. No free air or free fluid.. Abdominal Wall: Intact. Retroperitoneum: 3.9 cm retroperitoneal soft tissue mass just to the right of the aorta at the level of the right nephrectomy. This obscures the IVC at this level. This area was seen on the prior PET/C T. It is unchanged.. Bladder: Contours are smooth. Reproductive Organs: No abnormal masses or calcifications seen. Inguinal: The inguinal region is unremarkable without evidence of adenopathy. Bony Structures: Posterior fixation hardware at L2, L3, and L4. Expansile lesion again noted involvi ng the left sacral ala. This measures 4.8 cm in greatest dimension. It is unchanged from the prior st udy.. CONCLUSION: 1. Unchanged retroperitoneal mass consistent with recurrent disease at the level of the prior right nephrectomy. Previously evaluated with PET. 2. Prior right nephrectomy. 3. Constipation. 4. Stable expansile lesion involving left sacral ala without hypermetabolism on the prior CTA. This is felt to be benign. 5. Stable tiny right adrenal gland nodule. Electronically signed by: Sunny Carrion MD 01/17/2018 1:46 AM EST
[2018-01-17 01:55] LABS: Bilirubin,Urine Negative (Negative); Clarity,Urine Clear (Clear); Color,Urine Yellow (Yellw/Straw); Glucose,Urine (UA) Negative (Negative); Leukocyte Esterase,Urine Negative (Negative); Mucus,Urine Few /lpf (Occasional); Nitrite,Urine Negative (Negative); Specific Gravity,Urine 1.019 (1.002-1.035); Squamous Epithelial Cell,Urine <1 /hpf (0-5)
[2018-01-17] MEDS: Acetaminophen 325 MG Tablet PO PRN (07:50)
[2018-01-17] MEDS ORDERED: Morphine Inj 4 MG/ML Vial IV.PUSH PRN (08:43)
[2018-01-17] MEDS: Senna/Docusate Sodium 8.6/50 MG Tablet PO SCH ×2 (08:47→20:09)
[2018-01-17] MEDS: Finasteride 5 MG Tablet PO SCH (08:48)
[2018-01-17] MEDS: Sod Chloride 0.9% Inj 1,000 ML IV.CONT SCH ×2 (09:25→20:08)
--- NOTE | 2018-01-17 10:03 | P.CONGS ---
[facility] Gen Surgery Consult Note Consult date: 01/17/18 Reason for consult: other (Appendicitis) Requesting physician: Rosalva Naranjo Narrative: This is a 72-year-old male with a past medical history of renal cell carcinoma s /p nephrectomy in remission who presented to ED last night with complaints of constant abdominal pain for one day. He does report associated nausea without any vomiting. A CT abdomen/pelvis was done which is consistent with appendicitis. The patient does have a normal white blood cell count. The patient has remained n.p.o. A General Surgery consultation has been requested. 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 - Surgical History Surgical History: Surgical History (Last Reviewed 01/17/18 @ 09:57 by JUAN Lange) History of kidney surgery History of carpal tunnel surgery - Tobacco History Smoking Status: Never smoker - Alcohol History How Often Do You Have a Drink Containing Alcohol: Monthly or less - Substance Use History Substance History: No History of Abuse - Travel History Recent Travel in the [place] Within the Last 8 Weeks: No Recent Travel Out of the Country Within the Last 8 Weeks: No - Immunization History Tetanus Immunization: Unsure Medications and Allergies Allergies Allergy/AdvReac Type Severity Reaction Status Date / Time No Known Allergies Allergy Verified 01/16/18 20:47 Home Medications Medication Instructions Recorded Confirmed Type atorvastatin 20 mg PO HS 08/13/17 01/17/18 History nivolumab 1 mg/kg IV QMONTH 08/13/17 01/17/18 History losartan 100 mg PO DAILY 01/16/18 01/17/18 History calcitriol 0.25 mcg PO DAILY 01/18/18 01/18/18 History Active Medications: Active Medications Acetaminophen (Tylenol) 650 mg PO Q4H PRN PRN Reason: Temp > 100.4 Last Admin: 01/17/18 07:50 Dose: 650 mg Al Hydroxide/Mg Hydroxide (Milk Of Magnesia Liq) 30 ml PO Q12H PRN PRN Reason: Mild Constipation Atorvastatin Calcium (Lipitor) 20 mg PO HS [facility] Bisacodyl (Dulcolax Supp) 10 mg RECTAL DAILY PRN PRN Reason: SEVERE CONSITIPATION Finasteride (Proscar) 5 mg PO DAILY [facility] Last Admin: 01/17/18 08:48 Dose: Not Given Piperacillin/Tazobactam/Dextrose (Zosyn 3.375 Gm Premix) 50 mls @ 100 mls/hr IV.SIG Q8H LASHONDA Sodium Chloride (Ns Inj) 1,000 mls @ 100 mls/hr IV.CONT .Q10H [facility] Last Admin: 01/17/18 09:25 Dose: 100 mls/hr Lactulose (Lactulose Liq) 30 ml PO DAILY PRN PRN Reason: SEVERE CONSITIPATION Losartan Potassium (Cozaar) 100 mg PO DAILY [facility] Last Admin: 01/17/18 08:46 Dose: 100 mg Morphine Sulfate (Morphine Inj) 3 mg IV.PUSH Q3H PRN PRN Reason: Pain 1-10 Non-Formulary Medication (Nivolumab Inj) 1 mg/kg IV.SIG QMONTH [facility] Ondansetron HCl (Zofran Inj) 4 mg IV.PUSH Q6H PRN PRN Reason: NAUSEA OR VOMITING Senna/Docusate Sodium (Arielle-Colace) 1 tab PO BID [facility] Last Admin: 01/17/18 08:47 Dose: Not Given Sennosides (Senokot) 17.2 mg PO Q12H PRN PRN Reason: Moderate Constipation Sodium Chloride (Ns Flush) 2 ml IV.FLUSH BID [facility] Last Admin: 01/17/18 08:46 Dose: 2 ml Sodium Chloride (Ns Flush) 2 ml IV.FLUSH PRN PRN PRN Reason: FLUSH AFTER USING IV ACCESS Exam Vital signs: Vital Signs 01/16/18 20:47 01/16/18 22:03 01/16/18 22:09 Temperature 98.8 F Pulse Rate 67 63 Respiratory Rate 18 18 Blood Pressure 149/85 H 169/75 H Pulse Oximetry 98 98 96 01/17/18 01:30 01/17/18 02:30 01/17/18 03:26 Temperature Pulse Rate 60 70 Respiratory Rate 18 16 16 Blood Pressure 160/72 H 139/76 Pulse Oximetry 97 94 L 01/17/18 07:09 01/17/18 07:10 Temperature 99.9 F H Pulse Rate 86 Respiratory Rate 25 H Blood Pressure 152/75 H Pulse Oximetry 96 96 Intake & Output 01/16/18 01/17/18 01/17/18 18:59 06:59 18:59 Intake Total 550 / 550 Balance 550 / 550 Weight 77.111 kg Intake: IV 550 / 550 Zosyn 3.375 GM Premix 50 ML @ 50 / 50 100 mls/hr IV.SIG ONCE ONE Rx#: [id number] NS Inj 500 ML @ Wide Open IV. 500 / 500 SIG BOLUS ONE Rx#:[id number] Narrative: GENERAL: Very pleasant 72 year old male resting in bed. SKIN: Warm and dry. HEAD: Atraumatic. Normocephalic. EYES: Pupils equal and round. No scleral icterus. No injection or drainage. ENT: No nasal bleeding or discharge. Mucous membranes pink and moist. NECK: Trachea midline. CARDIOVASCULAR: Regular rate and rhythm. RESPIRATORY: No accessory muscle use. Clear to auscultation. Breath sounds equal bilaterally. GASTROINTESTINAL: Abdomen soft, nondistended. RLQ tenderness with light palpation. MUSCULOSKELETAL: Extremities without clubbing, cyanosis, or edema. No obvious deformities. NEUROLOGICAL: Awake and alert. No obvious cranial nerve deficits. Motor grossly within normal limits. Five out of 5 muscle strength in the arms and legs. Normal speech. PSYCHIATRIC: Appropriate mood and affect; insight and judgment normal. Results - Labs 01/16/18 22:15 01/16/18 22:15 Laboratory Results - last 24 hr 01/16/18 01/16/18 01/16/18 21:50 22:15 22:15 WBC 10.6 RBC 4.63 Hgb 13.8 Hct 40.9 MCV 88.3 MCH 29.9 MCHC 33.8 RDW 14.1 Plt Count 187 MPV 8.3 Neut % (Auto) 85.5 H Lymph % (Auto) 5.5 L [place] % (Auto) 8.8 H Eos % (Auto) 0.1 Baso % (Auto) 0.1 Neut # (Auto) 9.1 H Lymph # (Auto) 0.6 L [place] # (Auto) 0.9 Eos # (Auto) 0.0 Baso # (Auto) 0.0 WBC Differential . Differential Comment Auto diff final PT 10.7 INR 1.1 APTT 29.7 Sodium Potassium Chloride Carbon Dioxide Anion Gap BUN Creatinine Estimated GFR Random Glucose Lactic Acid Calcium Magnesium Total Bilirubin AST ALT Alkaline Phosphatase C-Reactive Protein Total Protein Albumin Lipase Urine Color Yellow Urine Clarity Clear Urine pH 5.0 Ur Specific [place] 1.019 Urine Protein 30 H Urine Glucose (UA) Negative Urine Ketones Negative Urine Occult Blood Negative Urine Nitrate Negative Urine Bilirubin Negative Urine Urobilinogen Less than 2 Ur Leukocyte Esterase Negative Urine WBC 1 Ur Squamous Epith Cells <1 Urine Mucus Few H Micro UA Comment Culture not ind Ur Microscopic Review Not Reportable Urine Culture Comments Culture not ind 01/16/18 01/16/18 22:15 22:15 WBC RBC Hgb Hct MCV MCH MCHC RDW Plt Count MPV Neut % (Auto) Lymph % (Auto) [place] % (Auto) Eos % (Auto) Baso % (Auto) Neut # (Auto) Lymph # (Auto) [place] # (Auto) Eos # (Auto) Baso # (Auto) WBC Differential Differential Comment PT INR APTT Sodium 139 Potassium 4.0 Chloride 106 Carbon Dioxide 28.4 Anion Gap 5 BUN 28 H Creatinine 1.51 H Estimated GFR 46 L Random Glucose 141 H Lactic Acid 1.0 Calcium 8.6 Magnesium 1.7 Total Bilirubin 0.5 AST 11 L ALT 24 Alkaline Phosphatase 118 H C-Reactive Protein 1.51 H Total Protein 7.1 Albumin 3.5 Lipase 334 Urine Color Urine Clarity Urine pH Ur Specific [place] Urine Protein Urine Glucose (UA) Urine Ketones Urine Occult Blood Urine Nitrate Urine Bilirubin Urine Urobilinogen Ur Leukocyte Esterase Urine WBC Ur Squamous Epith Cells Urine Mucus Micro UA Comment Ur Microscopic Review Urine Culture Comments - Imaging Imaging: ITS Impressions Abdomen/Pelvis CT 01/17/18 00:43 CONCLUSION: 1. Unchanged retroperitoneal mass consistent with recurrent disease at the level of the prior right nephrectomy. Previously evaluated with PET. 2. Prior right nephrectomy. 3. Constipation. 4. Stable expansile lesion involving left sacral ala without hypermetabolism on the prior CTA. This is felt to be benign. 5. Stable tiny right adrenal gland nodule. CT scan - abdomen: image reviewed Assessment and Plan - Assessment (1) Appendicitis Code(s): K37 - Unspecified appendicitis Status: Acute Qualifiers: Appendicitis type: acute appendicitis Acute appendicitis type: with localized peritonitis Appendicitis gangrene presence: unspecified whether gangrene present Appendicitis perforation presence: unspecified whether perforation present Appendicitis abscess presence: unspecified whether abscess present Qualified Code(s): K35.30 - Acute appendicitis with localized peritonitis, without perforation or gangrene Plan: 72 year old male with renal cell carcinoma in remission; appendicitis -Plan for OR this afternoon -Obtain consents -NPO -Added IVF -Added scheduled Zosyn -Procedure explained ---all questions answered -Thank you for this consult; We will continue to follow - Plan Discussed Condition With: Dr. Kyrie Gutierrez RN Mr. Da Silva - Attending Attestation I certify and attest that I personally examined the patient. MANAGER DRILLING documented our visit. Care plan reviewed with patient and RN at bedside. Acute appendicitis. OR notified at 0300. Room not available until 1100. THOM POLLARD MD FACS
[2018-01-17] MEDS: Piperacil/Tazo 3.375 GM Premix 50 ML IV.SIG SCH ×2 (11:03→20:07)
[2018-01-17] MEDS ORDERED: Bupivacaine/Epinephrine Inj 0.25% 50 ML Vial ONE (11:30)
[2018-01-17] MEDS ORDERED: Sugammadex Inj 200 MG/2 ML Vial IV.PUSH ONE (12:00)
[2018-01-17] MEDS ORDERED: Metoprolol Tartrate 25 MG Tablet PO ONE (12:45)
[2018-01-17] MEDS ORDERED: Sodium Chlor 0.9% Inj 500 ML IV.CONT ONE (12:45)
[2018-01-17] MEDS ORDERED: Chlorhexidine Gluconate 2% 1 Pack (2 Cloths) TOPICAL ONE (12:45)
--- NOTE | 2018-01-17 13:46 | P.HPFP ---
History of Present Illness Primary Care Physician: Tushar Ty DO History of Present Illness: 72-year-old male with a past medical history of renal cell carcinoma s/p nephrectomy in remission who presented to ED last night with complaints of constant abdominal pain for one day. CT abdomen/pelvis was done which is consistent with appendicitis. He is scheduled for lap appendectomy today. - Diagnosis (1) Appendicitis Inpatient Certification: I certify that the inpatient services were ordered in accordance with Medicare regulations governing the order. 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 - Surgical History Surgical History: Surgical History (Last Reviewed 01/17/18 @ 09:57 by JUAN Lange) History of kidney surgery History of carpal tunnel surgery - Tobacco History Smoking Status: Never smoker - Alcohol History How Often Do You Have a Drink Containing Alcohol: Monthly or less - Substance Use History Substance History: No History of Abuse - Travel History Recent Travel in the [place] Within the Last 8 Weeks: No Recent Travel Out of the Country Within the Last 8 Weeks: No - Immunization History Tetanus Immunization: Unsure Medications and Allergies Active Medications: Active Medications Acetaminophen (Tylenol) 650 mg PO Q4H PRN PRN Reason: Temp > 100.4 Last Admin: 01/17/18 07:50 Dose: 650 mg Hydrocodone Bitart/Acetaminophen (Tracy 5/325) 2 tab PO Q4H PRN PRN Reason: ABDOMINAL PAIN Al Hydroxide/Mg Hydroxide (Milk Of Magnesia Liq) 30 ml PO Q12H PRN PRN Reason: Mild Constipation Atorvastatin Calcium (Lipitor) 20 mg PO HS LASHONDA Bisacodyl (Dulcolax Supp) 10 mg RECTAL DAILY PRN PRN Reason: SEVERE CONSITIPATION Finasteride (Proscar) 5 mg PO DAILY [facility] Last Admin: 01/17/18 08:48 Dose: Not Given Piperacillin/Tazobactam/Dextrose (Zosyn 3.375 Gm Premix) 50 mls @ 100 mls/hr IV.SIG Q8H [facility] Last Infusion: 01/17/18 11:33 Dose: Infused Sodium Chloride (Ns Inj) 1,000 mls @ 100 mls/hr IV.CONT .Q10H [facility] Last Admin: 01/17/18 09:25 Dose: 100 mls/hr Lactated Ringer's (Lr 1000 Ml Inj) 1,000 mls @ 30 mls/hr IV.CONT .Q24H ONE Stop: 01/18/18 12:44 Last Admin: 01/17/18 12:00 Dose: 30 mls/hr Sodium Chloride (Ns Inj) 500 mls @ 30 mls/hr IV.CONT .[id number] ONE Stop: 01/18/18 05:24 Last Admin: 01/17/18 13:05 Dose: Not Given Lactulose (Lactulose Liq) 30 ml PO DAILY PRN PRN Reason: SEVERE CONSITIPATION Levofloxacin (Levaquin) 500 mg PO DAILY [facility] Losartan Potassium (Cozaar) 100 mg PO DAILY [facility] Last Admin: 01/17/18 08:46 Dose: 100 mg Morphine Sulfate (Morphine Inj) 3 mg IV.PUSH Q3H PRN PRN Reason: Pain 1-10 Non-Formulary Medication (Nivolumab Inj) 1 mg/kg IV.SIG QMONTH [facility] Ondansetron HCl (Zofran Inj) 4 mg IV.PUSH Q6H PRN PRN Reason: NAUSEA OR VOMITING Senna/Docusate Sodium (Arielle-Colace) 1 tab PO BID [facility] Last Admin: 01/17/18 08:47 Dose: Not Given Sennosides (Senokot) 17.2 mg PO Q12H PRN PRN Reason: Moderate Constipation Sodium Chloride (Ns Flush) 2 ml IV.FLUSH BID [facility] Last Admin: 01/17/18 08:46 Dose: 2 ml Sodium Chloride (Ns Flush) 2 ml IV.FLUSH PRN PRN PRN Reason: FLUSH AFTER USING IV ACCESS Allergies Allergy/AdvReac Type Severity Reaction Status Date / Time No Known Allergies Allergy Verified 01/16/18 20:47 Home Medications Medication Instructions Recorded Confirmed Type atorvastatin 20 mg PO HS 08/13/17 01/17/18 History nivolumab 1 mg/kg IV QMONTH 08/13/17 01/17/18 History losartan 100 mg PO DAILY 01/16/18 01/17/18 History Exam Vital signs: Vital Signs 01/16/18 20:47 01/16/18 22:03 01/16/18 22:09 Temperature 98.8 F Pulse Rate 67 63 Respiratory Rate 18 18 Blood Pressure 149/85 H 169/75 H Pulse Oximetry 98 98 96 01/17/18 01:30 01/17/18 02:30 01/17/18 03:26 Temperature Pulse Rate 60 70 Respiratory Rate 18 16 16 Blood Pressure 160/72 H 139/76 Pulse Oximetry 97 94 L 01/17/18 07:09 01/17/18 07:10 01/17/18 11:23 Temperature 99.9 F H 98.6 F Pulse Rate 86 82 Respiratory Rate 25 H 16 Blood Pressure 152/75 H 108/63 Pulse Oximetry 96 96 98 01/17/18 12:03 Temperature 98.6 F Pulse Rate Respiratory Rate Blood Pressure Pulse Oximetry Intake & Output 01/16/18 01/17/18 01/17/18 18:59 06:59 18:59 Intake Total 550 / 550 1050 / 1050 Output Total 5 / 5 Balance 550 / 550 1045 / 1045 Weight 77.111 kg Intake: IV 550 / 550 50 / 50 Zosyn 3.375 GM Premix 50 ML @ 50 / 50 50 / 50 100 mls/hr IV.SIG Q8H LASHONDA Rx#: [id number] NS Inj 500 ML @ Wide Open IV. 500 / 500 SIG BOLUS ONE Rx#:[id number] Anesthesia Amount 1000 / 1000 Output: Estimated Blood Loss 5 / 5 - Constitutional no acute distress - Routine HEENT Exam Eye: Present: PERRL - Routine Neck Exam Present: supple - Routine Respiratory Exam Present: accessory muscle use, CTA bilaterally - Routine Abdominal Exam Present: tenderness - Routine Skin Exam Present: dry, warm - Routine Neurological Exam Present: alert, oriented X3 Results - Labs Result diagrams: 01/16/18 22:15 01/16/18 22:15 Abnormal lab results 01/16/18 01/16/18 01/16/18 Range/Units 21:50 22:15 22:15 Neut % (Auto) 85.5 H (16.0-70.0) % Lymph % (Auto) 5.5 L (9.0-44.0) % [place] % (Auto) 8.8 H (0.0-8.0) % Neut # (Auto) 9.1 H (1.8-7.7) th/mm3 Lymph # (Auto) 0.6 L (1.0-4.8) th/mm3 BUN 28 H (7-18) mg/dL Creatinine 1.51 H (0.60-1.30) mg/dL Estimated GFR 46 L (>89) mL/min Random Glucose 141 H (74-106) mg/dL AST 11 L (15-37) U/L Alkaline Phosphatase 118 H (45-117) U/L C-Reactive Protein 1.51 H (0.00-0.30) mg/dL Urine Protein 30 H (Neg-Trace) mg/dL Urine Mucus Few H (Occasional) /lpf Short CBC 01/16/18 Range/Units 22:15 WBC 10.6 (4.0-11.0) th/mm3 Hgb 13.8 (13.0-17.0) gm/dL Hct 40.9 (39.0-51.0) % Plt Count 187 (150-450) th/mm3 BMP 01/16/18 22:15 Sodium 139 Potassium 4.0 Chloride 106 Carbon Dioxide 28.4 BUN 28 H Creatinine 1.51 H Calcium 8.6 Liver Function 01/16/18 Range/Units 22:15 Total Bilirubin 0.5 (0.2-1.0) mg/dL AST 11 L (15-37) U/L ALT 24 (12-78) U/L Alkaline Phosphatase 118 H (45-117) U/L Albumin 3.5 (3.4-5.0) g/dL Urine 01/16/18 Range/Units 21:50 Urine Color Yellow (Yellw/Straw) Urine Clarity Clear (Clear) Urine pH 5.0 (5.0-8.5) Ur Specific [place] 1.019 (1.002-1.035) Urine Protein 30 H (Neg-Trace) mg/dL Urine Glucose (UA) Negative (Negative) mg/dL - Imaging Impressions Abdomen/Pelvis CT 01/17/18 00:43 CONCLUSION: 1. Unchanged retroperitoneal mass consistent with recurrent disease at the level of the prior right nephrectomy. Previously evaluated with PET. 2. Prior right nephrectomy. 3. Constipation. 4. Stable expansile lesion involving left sacral ala without hypermetabolism on the prior CTA. This is felt to be benign. 5. Stable tiny right adrenal gland nodule. Caprini VTE Risk Assessment Caprini VTE Risk Assessment: Moderate/High Risk (score >= 2) Caprini Risk Assessment Model: Point Value = 1 Point Value = 2 Point Value = 3 Point Value = 5 Age 41-60 Minor surgery BMI > 25 kg/m2 Swollen legs Varicose veins or History of unexplained or recurrent spontaneous Oral contraceptives or hormone replacement Sepsis (< 1 month) Serious lung disease, including pneumonia (< 1 month) Abnormal pulmonary function Acute myocardial infarction Congestive heart failure (< 1 month) History of inflammatory bowel disease Medical patient at bed rest Age 61-74 Arthroscopic surgery Major open surgery (> 45 min) Laparoscopic surgery (> 45 min) Malignancy Confined to bed (> 72 hours) Immobilizing plaster cast Central venous access Age >= 75 History of VTE Family history of VTE Factor V Leiden Prothrombin [id number] Lupus anticoagulant Anticardiolipin antibodies Elevated serum homocysteine Heparin-induced thrombocytopenia Other congenital or acquired thrombophilia Stroke (< 1 month) Elective arthroplasty Hip, pelvis, or leg fracture Acute spinal cord injury (< 1 month) Prophylaxis Regimen: Total Risk Factor Score Risk Level Prophylaxis Regimen 0-1 Low Early ambulation 2 Moderate Order ONE of the following: *Sequential Compression Device (SCD) *Heparin 5000 units SQ BID 3-4 Higher Order ONE of the following medications: *Heparin 5000 units SQ TID *Enoxaparin/Lovenox 40 mg SQ daily (WT < 150 kg, CrCl > 30 mL/min) *Enoxaparin/Lovenox 30 mg SQ daily (WT < 150 kg, CrCl > 10-29 mL/min) *Enoxaparin/Lovenox 30 mg SQ BID (WT < 150 kg, CrCl > 30 mL/min) AND/OR *Sequential Compression Device (SCD) 5 or more Highest Order ONE of the following medications: *Heparin 5000 units SQ TID (Preferred with Epidurals) *Enoxaparin/Lovenox 40 mg SQ daily (WT < 150 kg, CrCl > 30 mL/min) *Enoxaparin/Lovenox 30 mg SQ daily (WT < 150 kg, CrCl > 10-29 mL/min) *Enoxaparin/Lovenox 30 mg SQ BID (WT < 150 kg, CrCl > 30 mL/min) AND *Sequential Compression Device (SCD) Assessment and Plan - Assessment (1) Appendicitis Code(s): K37 - Unspecified appendicitis Status: Acute - Assessment and Plan Npo, surgical consult Scheduled for lap appendectomy today.
[2018-01-17] MEDS ORDERED: fentaNYL Citrate Inj 100 MCG/2 ML Ampul ONE (13:58)
--- NOTE | 2018-01-17 14:02 | MP ---
cc: Anil Mittal MD [facility],Surinder PORTILLO DATE OF OPERATION: DATE OF PROCEDURE: 01/27/2018. PREOPERATIVE DIAGNOSIS: Acute appendicitis. POSTOPERATIVE DIAGNOSES: 1. Acute appendicitis. 2. Contained perforation with ischemic changes of mid appendix. PROCEDURE PERFORMED: Laparoscopic appendectomy with drain placement. SURGEON: Anil Mittal MD. ANESTHESIA: General endotracheal. INDICATIONS FOR PROCEDURE: Mr. Da Silva is a very pleasant 72-year-old gentleman who had right lower quadrant pain for 24 hours. He was seen and evaluated in the emergency department and worked up. He was found to have acute appendicitis by physical exam, history and CT imaging. The patient was advised to undergo appendectomy; OR was notified at 0200 hours. First available operating room time was 11:00 A.m. Risks and benefits of laparoscopic, possible appendectomy was discussed with him and he was agreeable. INTRAOPERATIVE FINDINGS: The patient had a contained perforation with ischemic change of the mid appendix. The appendix was walled off into the right lower quadrant. Once we reduced it off the pelvic sidewall, a small amount of purulent material came out indicating a perforation. In the mid appendix there was some dark ischemic changes; you could clearly see where the appendix had opened up. DETAILS OF PROCEDURE: The patient was identified, brought to the operating room, placed supine on the operating table. After adequate general endotracheal anesthesia was achieved, the abdomen was prepped and draped in standard surgical fashion. Supraumbilical space anesthetized with 0.25% Marcaine. A umbilical incision was made. Dissection was carried down through subcutaneous tissue to midline fascia. Midline fascia was then incised sharply. Finger was then placed in the peritoneal cavity without difficulty. Blunt balloon trocar was inserted, and the abdomen insufflated to 15 mmHg using CO2 gas. Next, two 5 mm trocars were placed in the right paramedian position as the patient had lower midline adhesions from a previous lower midline laparotomy scar. These were mostly omental adhesions. The 2 trocars were placed under direct vision after anesthetizing the skin and subcutaneous tissue with 0.25% Marcaine. Attention was directed to the right lower quadrant where the appendix was identified. The appendix was noted to be markedly thickened and inflamed. It was adherent to the lateral abdominal sidewall. It was carefully dissected off with blunt and hydrodissection. In the mid portion of the appendix, there was some ischemic changes. In this area, there was a gross perforation with pus leaking out. This was suctioned out immediately with the suction hris developer. The appendix was then followed back in a retrograde fashion to the cecal base. The mesentery was then taken down with Harmonic scalpel. Once the cecal base was achieved, two 2-0 Vicryl Endoloops were placed over the appendiceal stump at the level of the cecum. The distal appendix was then transected with Harmonic scalpel. The appendix was then brought out through the supraumbilical port and sent to pathology for analysis. Appendix was placed into an EndoCatch bag to remove it. Attention was directed to the stump, which was copiously irrigated. There was no evidence of leakage. Because there was some gross pus spilled during the procedure, I elected to place a 7-Macedonian Ramón-Donovan drain in the right lower quadrant. This was placed under direct vision and brought out through the supraumbilical 5 mm port. It was secured with a 3-0 nylon. The abdominal cavity was then rinsed out with 1 liter of warm saline solution. Effluent was noted to be clear. Stump was again inspected and there was no evidence of leaking. No evidence of bleeding. Omentum was then placed over the stump. The abdomen was carefully desufflated. All ports were removed under direct vision. Anterior abdominal fascia was closed with 0-Vicryl in a [id number] fashion. Skin was closed with 4-0 Vicryl. The patient tolerated the procedure well, was awakened and brought to the recovery room in stable condition. Anil MD DEB Abbasi/shaun , 01:43 PM , 01:49 PM
[2018-01-17] MEDS ORDERED: *morphine SULFATE 4 MG/ML PERIprocedure ONLY ONE (14:23)
--- NOTE | 2018-01-17 21:19 | ECG ---
Date Performed: 01/17/2018 Time Performed: 11:31:56 PTAGE: 72 years EKG: Sinus rhythm POSSIBLE LEFT ATRIAL ENLARGEMENT BORDERLINE ECG PREVIOUS TRACING : 01/21/2017 04.58 Since the previous tracing, no significant change noted DOCTOR: Lew Cheung Interpretating Date/Time 01/17/2018 21:17:58
--- NOTE | 2018-01-17 21:57 | MB ---
cc: Ayush Benz MD DATE: 01/17/2018 REASON FOR CONSULTATION: History of metastatic renal cell cancer, status post appendectomy with evidence of recurrent disease in the retroperitoneum. PATIENT PROFILE: This is his third marriage. He has 1 daughter. He has never smoked. Alcohol intake is minimal. He was born in [place] and has lived in [place] for 13 years and resides in [place]. HISTORY OF PRESENT ILLNESS: The patient is a 72-year-old male who had a right radical nephrectomy on 12/24/2016 at the [facility] for a 11 cm, clear cell carcinoma, grade 3. Shortly after surgery, he developed increasing lower back pain and required a decompressive laminectomy at L3 for metastatic disease consistent with his renal cell cancer. He received postoperative radiation to the lumbar spine, administered by Dr. Awad, and then was treated with Votrient. He developed progressive disease involving bone, retroperitoneum and adrenal gland. He received 4 cycles of ipilimumab and nivolumab starting on 06/03/2017 and then single agent nivolumab. On 08/24/2017, he had a PET scan showing complete remission. He did have complications requiring hospitalization for diarrhea and was given high dose corticosteroids. His therapy with nivolumab was resumed. Approximately 48 hours ago, he developed right lower quadrant pain. He went to the emergency room and had a CT scan of the abdomen and pelvis and was found to have evidence of appendicitis. Unfortunately, he also had evidence of recurrent disease with a retroperitoneal mass consistent with recurrent disease at the level of the prior right nephrectomy. He had an outpatient PET scan performed on 01/13/2018. I personally reviewed the images. 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 He does not have any obvious pain attributable to this area. His health has been good and several days before his hospitalization, he played tennis. PAST SURGICAL HISTORY: 1. Bilateral carpal tunnel. 2. Knee surgery, left. 3. Knee surgery, right. 4. At age 32, he had an operation involving the pelvic bone to remove a benign process felt to be due to cartilage encasing nerves. 5. Right nephrectomy on 12/24/2016 at the [facility]. 6. Laminectomy on 01/21/2017 at L3 for recurrent tumor, followed by postoperative radiation therapy. PAST MEDICAL HISTORY: 1. Metastatic renal cell cancer, as described above. 2. Benign prostatic hypertrophy. 3. Hypertension. 4. Hypercholesterolemia. 5. History of renal stones. MEDICATIONS: 1. Outpatient nivolumab. 2. Atorvastatin. 3. Finasteride. 4. Losartan. ALLERGIES: NO KNOWN ALLERGIES. FAMILY HISTORY: The patient's parents are both . He has a brother who is alive and a sister who is alive. There is no family history of malignancy. REVIEW OF SYSTEMS: Constitutionally, he had been doing enormously well until the past several days. He has had minimal fatigue. His strength has been improving. He has chronic lower back pain. He has a dry mouth. The rest of the review of systems is otherwise unremarkable except for the past 2 days when he developed right lower quadrant pain. LABORATORY STUDIES: Hemoglobin 13.8, white count 10,600, platelets 187,000. CMP notable for a slight elevation of creatinine at 1.5, BUN 28, alkaline phosphatase 118. PHYSICAL EXAMINATION: GENERAL: Reveals a gentleman who appears well. He has regained his muscle mass. VITAL SIGNS: Blood pressure 114/60, respiratory rate 18, pulse 70, afebrile, O2 saturation 94%. HEENT: Head is normocephalic. Sclerae and conjunctivae are normal. Oropharynx is unremarkable. LYMPHATIC: No cervical, supraclavicular, axillary or inguinal adenopathy. HEART: Regular rhythm. LUNGS: Clear. ABDOMEN: Soft. There is a drain where he had his surgery. No hepatosplenomegaly. Minimal tenderness at the surgical site. EXTREMITIES: Trace edema. MUSCULOSKELETAL: No obvious bone pain. NEUROLOGIC: No weakness. Cognition and affect normal. SKIN: Unremarkable. ASSESSMENT: The patient is a 72-year-old male who has had an appendectomy and is recovering well. He has a history of metastatic renal cell cancer to the retroperitoneum, adrenal gland and bone. He had a complete response to immunotherapy and now has a single site relapse based on his PET scan of 01/13/2018. I reviewed the images with the patient. RECOMMENDATIONS: I would recommend definitive radiation to this area as this is the only site of disease. I will also continue the immunotherapy. I have placed a consultation for Dr. Awad, who provided the patient's radiation to the lumbosacral spine following his decompressive laminectomy on 01/21/2017. The patient has done enormously well in terms of the immunotherapy. At one point, he had widespread metastatic disease to bone and now we are dealing with a single site relapse. MD DIMITRI Barfield/fernie , 08:02 PM , 08:15 PM MAHSA
[2018-01-18] MEDS: Sod Chloride 0.9% Inj 1,000 ML IV.CONT SCH ×2 (02:02→05:01)
[2018-01-18] MEDS: Piperacil/Tazo 3.375 GM Premix 50 ML IV.SIG SCH (03:00)
[2018-01-18] MEDS: Acetaminophen 325 MG Tablet PO PRN ×3 (04:27→18:16)
--- NOTE | 2018-01-18 07:45 | P.PNGS ---
Subjective Interval history: Resting in bed Pain minimal Physical Exam Vital signs: Vital Signs 01/17/18 11:23 01/17/18 12:03 01/17/18 13:46 Temperature 98.6 F 98.6 F 97.3 F L Pulse Rate 82 74 Respiratory Rate 16 16 Blood Pressure 108/63 107/53 L Pulse Oximetry 98 100 01/17/18 14:00 01/17/18 14:15 01/17/18 14:30 Temperature Pulse Rate 70 75 71 Respiratory Rate 16 17 17 Blood Pressure 103/51 L 95/50 L 101/52 L Pulse Oximetry 96 95 95 01/17/18 14:40 01/17/18 14:45 01/17/18 15:00 Temperature Pulse Rate 70 70 Respiratory Rate 17 17 Blood Pressure 98/56 L 99/54 L Pulse Oximetry 100 95 95 01/17/18 15:30 01/17/18 15:47 01/17/18 16:00 Temperature 98.3 F Pulse Rate 69 63 Respiratory Rate 19 19 Blood Pressure 113/64 120/66 Pulse Oximetry 95 96 94 L 01/17/18 16:50 01/17/18 19:56 01/17/18 20:06 Temperature 97.5 F L 97.3 F L Pulse Rate 66 68 Respiratory Rate 18 16 Blood Pressure 114/58 L 131/69 Pulse Oximetry 94 L 93 L 92 L 01/17/18 21:12 01/18/18 00:06 01/18/18 00:09 Temperature 97.8 F Pulse Rate 68 68 79 Respiratory Rate 17 Blood Pressure 107/59 L Pulse Oximetry 92 L 01/18/18 04:00 Temperature Pulse Rate 53 L Respiratory Rate Blood Pressure Pulse Oximetry Intake & Output 01/17/18 01/18/18 01/18/18 18:59 06:59 18:59 Intake Total 1050 / 1050 2460 / 2460 Output Total 125 / 125 20 / 20 Balance 925 / 925 2440 / 2440 Weight 77.111 kg Intake: IV 50 / 50 2100 / 2100 LR 1000 mL Inj 1,000 ML @ 30 1000 / 1000 mls/hr IV.CONT .Q24H ONE Rx#: [id number] NS Inj 1,000 ML @ 100 mls/hr IV 1000 / 1000 .CONT .Q10H LASHONDA Rx#:[id number] Zosyn 3.375 GM Premix 50 ML @ 50 / 50 100 / 100 100 mls/hr IV.SIG Q8H LASHONDA Rx#: [id number] Oral 360 / 360 Anesthesia Amount 1000 / 1000 Output: Stool 0 / 0 Estimated Blood Loss 5 / 5 Wound Drainage 120 / 120 20 / 20 # 1 Abdomen BIJAN Drain 120 / 120 20 / 20 Other: # Voids 2 Date of Last Bowel Movement 01/17/18 01/17/18 Weight On Admission 77.111 kg Narrative: Alert and awake Abd: soft; minimal tenderness; lap sites c/d/i; BIJAN with serous-with slight purulent drainage Results - Labs 01/16/18 22:15 01/16/18 22:15 - Imaging Imaging: ITS Impressions Abdomen/Pelvis CT 01/17/18 00:43 CONCLUSION: 1. Unchanged retroperitoneal mass consistent with recurrent disease at the level of the prior right nephrectomy. Previously evaluated with PET. 2. Prior right nephrectomy. 3. Constipation. 4. Stable expansile lesion involving left sacral ala without hypermetabolism on the prior CTA. This is felt to be benign. 5. Stable tiny right adrenal gland nodule. Assessment and Plan - Assessment (1) Appendicitis Code(s): K37 - Unspecified appendicitis Status: Acute Plan: 72 year old male with renal cell carcinoma in remission; appendicitis -POD1 lap appy; with drain placement -Regular diet -DC IVF -Continue PO antibiotics -Follow up Tuesday for drain removal -Patient feels comfortable taking care of drain at home
[2018-01-18] MEDS: Finasteride 5 MG Tablet PO SCH (08:14)
[2018-01-18] MEDS: Senna/Docusate Sodium 8.6/50 MG Tablet PO SCH (08:14)
[2018-01-18] MEDS ORDERED: levoFLOXacin 500 MG Tablet PO SCH (09:00)
[2018-01-18] MEDS: Calcitriol 0.25 MCG Capsule PO SCH (10:58)
--- NOTE | 2018-01-18 16:15 | P.PNFP ---
Subjective Interval history: Delayed entry, seen ay 0630 this am Denies Cp, SOB, does have abdominal discomfort BIJAN drain in place Results - Labs Result diagrams: 01/16/18 22:15 01/16/18 22:15 Physical Exam Vital signs: Vital Signs 01/17/18 16:50 01/17/18 19:56 01/17/18 20:06 Temperature 97.5 F L 97.3 F L Pulse Rate 66 68 Respiratory Rate 18 16 Blood Pressure 114/58 L 131/69 Pulse Oximetry 94 L 93 L 92 L 01/17/18 21:12 01/18/18 00:06 01/18/18 00:09 Temperature 97.8 F Pulse Rate 68 68 79 Respiratory Rate 17 Blood Pressure 107/59 L Pulse Oximetry 92 L 01/18/18 04:00 01/18/18 08:00 01/18/18 11:08 Temperature 97.6 F 97.6 F Pulse Rate 53 L 59 L 60 Respiratory Rate 18 Blood Pressure 114/56 L 119/62 Pulse Oximetry 95 96 01/18/18 15:32 Temperature 98.1 F Pulse Rate 60 Respiratory Rate 17 Blood Pressure 123/67 Pulse Oximetry 96 Intake & Output 01/17/18 01/18/18 01/18/18 18:59 06:59 18:59 Intake Total 1050 / 1050 2460 / 2460 700 / 700 Output Total 125 / 125 / 20 25 Balance 925 / 925 2440 / 2440 675 / 675 Weight 77.111 kg Intake: IV 50 / 50 2100 / 2100 700 / 700 LR 1000 mL Inj 1,000 ML @ 30 1000 / 1000 mls/hr IV.CONT .Q24H ONE Rx#: [id number] NS Inj 1,000 ML @ 100 mls/hr IV 1000 / 1000 700 / 700 .CONT .Q10H LASHONDA Rx#:[id number] Zosyn 3.375 GM Premix 50 ML @ 50 / 50 100 / 100 100 mls/hr IV.SIG Q8H LASHONDA Rx#: [id number] Oral 360 / 360 Anesthesia Amount 1000 / 1000 Output: Stool 0 / 0 Estimated Blood Loss 5 / 5 Wound Drainage 120 / 120 20 / 20 25 25 # 1 Abdomen BIJAN Drain 120 / 120 / 20 Other: # Voids 2 Date of Last Bowel Movement 01/17/18 01/17/18 01/17/18 Weight On Admission 77.111 kg - Constitutional no acute distress - Routine HEENT Exam Head: Present: normocephalic Eye: Present: PERRL - Routine Respiratory Exam Present: CTA bilaterally - Routine Cardiovascular Exam Present: S1, S2 - Routine Abdominal Exam Present: soft, tenderness, drain - Routine Extremities Exam Present: pulses intact - Routine Skin Exam Present: dry, warm - Routine Neurological Exam Present: alert, oriented X3 - Routine Psychiatric Exam Present: cooperative Assessment and Plan - Assessment (1) Appendicitis Code(s): K37 - Unspecified appendicitis Status: Acute - Assessment and Plan lap appendectomy, yesterday, BIJAN drain in place 01/18/18- metastatic renal cell cancer, status post appendectomy with evidence of 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 Consult placed. Per surgery patient can be dc, with BIJAN drain, FU in office on Tuesday for removal. Started on Levaquin. Will dc home once seen by oncologist. (1) Appendicitis Qualifiers: Appendicitis type: acute appendicitis Acute appendicitis type: with localized peritonitis Appendicitis gangrene presence: unspecified whether gangrene present Appendicitis perforation presence: unspecified whether perforation present Appendicitis abscess presence: unspecified whether abscess present Qualified Code(s): K35.30 - Acute appendicitis with localized peritonitis, without perforation or gangrene
--- NOTE | 2018-01-18 17:43 | P.DS ---
Date of admission: 01/17/18 00:22 Primary care physician: Tushar Ty DO Brief History from admission: 72-year-old male with a past medical history of renal cell carcinoma s/p nephrectomy in remission who presented to ED last night with complaints of constant abdominal pain for one day. CT abdomen/pelvis was done which is consistent with appendicitis. He is scheduled for lap appendectomy today. DS: Diagnosis - Discharge Diagnosis (1) Appendicitis Status: Acute DS: Medications - Discharge Medications Prescriptions: hydrocodone-acetaminophen 1 tab PO Q4H PRN #18 tab PRN Reason: acute post op pain exception levofloxacin 500 mg PO DAILY 5 Days #5 tab DS: Summary Hospital Course: 72-year-old male with a past medical history of renal cell carcinoma s/p nephrectomy in remission who presented to ED last night with complaints of constant abdominal pain for one day. CT abdomen/pelvis was done which is consistent with appendicitis. He is scheduled for lap appendectomy on 01/17/18, HENRY drain placed for possible abscess. Ct shows stable adrenal gland nodule, Patient seen by Oncology, referred to radiation oncology, both seen patient in hospital, radiation to be arranged as outpatient. He is cleared for Dc to home, will fu with surgeon on Tuesday for drain removal. - Time Spent with Patient Total time spent providing and/or coordinating discharge services: 25 Less than 30 minutes - Quality: AMI Clinical Trial Participant: No - Quality: Stroke Symptom Onset Unknown: No - Quality: VTE Deep Vein Thrombosis/Pulmonary Embolism Present on Admission: No Exam Vital signs: Vital Signs 01/17/18 19:56 01/17/18 20:06 01/17/18 21:12 Temperature 97.3 F L Pulse Rate 68 68 Respiratory Rate 16 Blood Pressure 131/69 Pulse Oximetry 93 L 92 L 01/18/18 00:06 01/18/18 00:09 01/18/18 04:00 Temperature 97.8 F Pulse Rate 68 79 53 L Respiratory Rate 17 Blood Pressure 107/59 L Pulse Oximetry 92 L 01/18/18 08:00 01/18/18 11:08 01/18/18 15:32 Temperature 97.6 F 97.6 F 98.1 F Pulse Rate 59 L 60 60 Respiratory Rate 18 17 Blood Pressure 114/56 L 119/62 123/67 Pulse Oximetry 95 96 96 Intake & Output 01/17/18 01/18/18 01/18/18 18:59 06:59 18:59 Intake Total 1050 / 1050 2460 / 2460 700 / 700 Output Total 125 / 125 / 20 / Balance 925 / 925 2440 / 2440 675 / 675 Weight 77.111 kg Intake: IV 50 / 50 2100 / 2100 700 / 700 LR 1000 mL Inj 1,000 ML @ 30 1000 / 1000 mls/hr IV.CONT .Q24H ONE Rx#: [id number] NS Inj 1,000 ML @ 100 mls/hr IV 1000 / 1000 700 / 700 .CONT .Q10H LASHONDA Rx#:[id number] Zosyn 3.375 GM Premix 50 ML @ 50 / 50 100 / 100 100 mls/hr IV.SIG Q8H LASHONDA Rx#: [id number] Oral 360 / 360 Anesthesia Amount 1000 / 1000 Output: Stool 0 / 0 Estimated Blood Loss 5 / 5 Wound Drainage 120 / 120 / 20 # 1 Abdomen HENRY Drain 120 / 120 / 20 Other: # Voids 2 Date of Last Bowel Movement 01/17/18 01/17/18 01/17/18 Weight On Admission 77.111 kg - Constitutional no acute distress - Routine HEENT Exam Eye: Present: PERRL - Routine Respiratory Exam Present: CTA bilaterally - Routine Cardiovascular Exam Present: S1 - Routine Abdominal Exam Present: soft, normoactive bowel sounds Comments: Henry drain in place - Routine Extremities Exam Present: pulses intact - Routine Skin Exam Present: dry, warm - Routine Neurological Exam Present: alert, oriented X3 Results Procedures completed during hospitalization: na Completed studies during hospitalization: Pending at discharge 01/17/18 14:41 Surgical [PTH] Routine - Impressions ITS Impressions Abdomen/Pelvis CT 01/17/18 00:43 CONCLUSION: 1. Unchanged retroperitoneal mass consistent with recurrent disease at the level of the prior right nephrectomy. Previously evaluated with PET. 2. Prior right nephrectomy. 3. Constipation. 4. Stable expansile lesion involving left sacral ala without hypermetabolism on the prior CTA. This is felt to be benign. 5. Stable tiny right adrenal gland nodule. Discharge Plan - Discharge Disposition Patient Disposition: Discharge Home - Discharge Condition Condition: Good - Discharge Order Discharge Orders: Discharge Order (Routine); Ordered 01/18/18 Ordered By: Edna Barahona - Physicians Team Primary Care Provider: Tushar Ty Attending Provider: Tushar Ty Other Providers: Ayush Benz MD ; Odell Sterling MD ; Gregg Awad MD
== END 2018-01-18 18:38 | disposition home or self-care (01) ==
LOC: NEPC 20:37 → NEDA 01-17 00:22 → N06 01-17 16:30
PROVIDERS: ADMIT Family Medicine; ATTEND Family Medicine
PROC: LAPAPPY (ICD-10-PCS; 2018-01-17 12:25)